=== PATIENT | female | born 1935 | race Caucasian/White ===

== ENCOUNTER 2016-08-26 14:56 | Inpatient (IN) | payer OTHER, MEDICARE ==
[~2016-08-26] VITALS: Ht 154.9 cm; Wt 55.3 kg
[2016-08-26] VITALS (7 sets, daily range): BP systolic 103–151; BP diastolic 66–99; PULSE 66–142; RESP 14–34; TEMP 98.1–98.6; O2SAT 96–98
[~2016-08-26 14:56] MED LIST: AMIO400T2 PO; DAILTAB38 PO; DENO60P SQ; E 101000 PO; HYDR12.56 PO; PACE200T4 PO; PRAV80 PO; RIVA15 PO; VITA100018 PO
[2016-08-26] MEDS ORDERED: DENO60P SQ (15:12)
[2016-08-26] MEDS ORDERED: FLEC1TAB8 PO (15:12)
[2016-08-26] MEDS ORDERED: HYDR12.57 PO (15:12)
[2016-08-26] MEDS ORDERED: PROT40TA PO (15:12)
[2016-08-26] MEDS ORDERED: XARE15TA PO (15:12)
--- NOTE | 2016-08-26 15:21 | PD ---
HPI Chief Complaint: Cardiac Complaint Time Seen by Provider: 15:02 Travel History International Travel<30 days: No Contact w/Intl Traveler<30days: No Traveled to known affect area: No History of Present Illness HPI This 81-year-old female presents with complaint of palpitations. She has a history of atrial fibrillation. She has had 3 ablations in the past. The last one was in 2014. She does get palpitations fairly often. She would estimate that she has episodes about once a month. Her symptoms started last night. She was able to sleep through the night. This morning at 7 AM she took 50 mg tablet of flecainide. This has not affected her palpitations. She has no complaint of chest pain or shortness of breath. She is on hydrochlorothiazide for hypertension. She is on Xarelto [facility] Past Medical History Arthritis: No Atrial Fibrillation: Yes Heart Rhythm Problems: Yes (AFIB WITH TWO PREVIOUS ABLATIONS) Cancer: No Cardiovascular Problems: Yes (AFIB) High Cholesterol: Yes Chest Pain: Yes Cerebrovascular Accident: No Diminished Hearing: No Endocrine: No Gastrointestinal Disorders: Yes GERD: Yes Genitourinary: Yes (BLADDER SPASMS) Hiatal Hernia: Yes Hypertension: Yes Immune Disorder: No Musculoskeletal: Yes Neurologic: Yes Psychiatric: No Reproductive: No Respiratory: No Ulcer: Yes Tetanus Vaccination: Unknown ?: Not Menopausal: Yes : 6 Para: 6 Past Surgical History Abdominal Surgery: No Cardiac Surgery: Yes (CARDIAC ABLATION X3) Gynecologic Surgery: Yes (BARTHOLIN CYST REMOVAL, HYSTERECTOMY ) Hysterectomy: Yes Thoracic Surgery: No Other Surgery: Yes (NASAL) Social History Alcohol Use: Yes (OCC) Tobacco Use: No (SMOKED LESS THAN A YEAR IN THE 1950'S) Substance Use: No Allergies-Medications (Allergen,Severity, Reaction): Coded Allergies: Bactrim (Verified Allergy, Severe, Rash, 08/26/16) Reported Meds & Prescriptions Reported Meds & Active Scripts Active Reported Prolia Inj (Denosumab) 60 Mg/Ml Inj 60 Mg SQ Q180D Hydrochlorothiazide 12.5 Mg Cap 12.5 Mg PO DAILY Protonix (Pantoprazole Sodium) 40 Mg Tab 40 Mg PO DAILY Xarelto (Rivaroxaban) 15 Mg Tab 15 Mg PO DAILY Flecainide (Flecainide Acetate) 50 Mg Tab 50 Mg PO TID Review of Systems General / Constitutional: No: Fever, Chills Eyes: No: Diploplia, Blurred Vision HENT: No: Headaches, Vertigo Cardiovascular: No: Chest Pain or Discomfort, Palpitations Respiratory: No: Cough, Shortness of Breath Gastrointestinal: No: Vomiting, Diarrhea Genitourinary: No: Urgency, Frequency Physical Exam Narrative GENERAL: Well-developed female. Her heart rate is 130 SKIN: Focused skin assessment warm/dry. HEAD: Atraumatic. Normocephalic. EYES: Pupils equal and round. No scleral icterus. No injection or drainage. ENT: No nasal bleeding or discharge. Mucous membranes pink and moist. NECK: Trachea midline. No JVD. CARDIOVASCULAR: Rapid irregular rate and rhythm. No murmur appreciated. RESPIRATORY: No accessory muscle use. Clear to auscultation. Breath sounds equal bilaterally. GASTROINTESTINAL: Abdomen soft, non-tender, nondistended. Hepatic and splenic margins not palpable. MUSCULOSKELETAL: No obvious deformities. No clubbing. No cyanosis. No edema. NEUROLOGICAL: Awake and alert. No obvious cranial nerve deficits. Motor grossly within normal limits. Normal speech. PSYCHIATRIC: Appropriate mood and affect; insight and judgment normal. Data Data Last Documented VS Vital Signs Date Time Temp Pulse Resp B/P Pulse Ox O2 Delivery O2 Flow Rate FiO2 08/26/16 15:10 16 97 Room Air 08/26/16 15:07 98.1 131 151/99 Orders Electrocardiogram (08/26/16 15:27) Complete Blood Count With Diff (08/26/16 15:27) Basic Metabolic Panel (Bmp) (08/26/16 15:27) Troponin I (08/26/16 15:27) Urinalysis - C+S If Indicated (08/26/16 15:27) Magnesium (Mg) (08/26/16 15:27) Diltiazem Inj (Cardizem Inj) (08/26/16 15:30) Diltiazem Inj (Cardizem Inj) (08/26/16 15:30) Labs Laboratory Tests Test 08/26/16 15:10 White Blood Count 7.3 TH/MM3 Red Blood Count 5.07 MIL/MM3 Hemoglobin 15.6 GM/DL Hematocrit 47.3 % Mean Corpuscular Volume 93.3 FL Mean Corpuscular Hemoglobin 30.9 PG Mean Corpuscular Hemoglobin 33.1 % Concent Red Cell Distribution Width 12.3 % Platelet Count 257 TH/MM3 Mean Platelet Volume 8.5 FL Neutrophils (%) (Auto) 47.4 % Lymphocytes (%) (Auto) 41.4 % Monocytes (%) (Auto) 7.3 % Eosinophils (%) (Auto) 1.6 % Basophils (%) (Auto) 2.3 % Neutrophils # (Auto) 3.5 TH/MM3 Lymphocytes # (Auto) 3.0 TH/MM3 Monocytes # (Auto) 0.5 TH/MM3 Eosinophils # (Auto) 0.1 TH/MM3 Basophils # (Auto) 0.2 TH/MM3 CBC Comment DIFF FINAL Differential Comment Sodium Level 139 MEQ/L Potassium Level 3.6 MEQ/L Chloride Level 103 MEQ/L Carbon Dioxide Level 26.8 MEQ/L Anion Gap 9 MEQ/L Blood Urea Nitrogen 14 MG/DL Creatinine 0.79 MG/DL Estimat Glomerular Filtration 70 ML/MIN Rate Random Glucose 95 MG/DL Calcium Level 9.0 MG/DL Magnesium Level 2.2 MG/DL Troponin I 0.02 NG/ML [facility] Medical Decision Making Medical Screen Exam Complete: Yes Emergency Medical Condition: Yes Medical Record Reviewed: Yes Differential Diagnosis Differential includes dysrhythmia, SVT, atrial fibrillation, atrial flutter Narrative Course EKG shows atrial fibrillation at a rate of 133. Patient was given 1 dose of flecainide at 7 AM. I will order Cardizem. Cardizem has been given with persistence of atrial fibrillation. Her troponin is normal. Electrolytes are unremarkable Diagnosis Primary Impression: Atrial fibrillation Qualified Code: I48.0 - Paroxysmal atrial fibrillation Librado Patton MD Aug 26, 2016 15:21
[2016-08-26] MEDS ORDERED: DILTIAZEM HCL 25 MG/5 ML VIAL IV ONE (15:30)
[2016-08-26] MEDS ORDERED: DILTIAZEM INJ 125 MG in SODIUM CHLORIDE 0.9% INJ 100 ML IV SCH (15:30)
[2016-08-26 15:41] LABS: AUTOMATED NEUTROPHIL # 3.5 TH/MM3 (1.8-7.7); BASOPHIL # 0.2 TH/MM3 (0-0.2); BASOPHIL % 2.3 % (0.0-2.0); EOSINOPHIL # 0.1 TH/MM3 (0-0.4); EOSINOPHIL % 1.6 % (0.0-4.0); HEMATOCRIT 47.3 % (35.0-46.0); HEMO FLAGS DIFF FINAL; LYMPH % 41.4 % (9.0-44.0); MEAN CELL VOLUME 93.3 FL (80.0-100.0); MEAN CORPUSCULAR HEMOGLOBIN 30.9 PG (27.0-34.0); MEAN CORPUSCULAR HGB CONC 33.1 % (32.0-36.0); MONO % 7.3 % (0.0-8.0); NEUT % 47.4 % (16.0-70.0); PLATELET COUNT 257 TH/MM3 (150-450); RED BLOOD COUNT 5.07 MIL/MM3 (4.00-5.30); RED CELL DISTRIBUTION WIDTH 12.3 % (11.6-17.2); WHITE BLOOD COUNT 7.3 TH/MM3 (4.0-11.0)
[2016-08-26 15:48] LABS: POTASSIUM 3.6 MEQ/L (3.5-5.1)
[2016-08-26 15:52] LABS: BICARBONATE 26.8 MEQ/L (21.0-32.0); MAGNESIUM 2.2 MG/DL (1.5-2.5)
[2016-08-26 16:55] LABS: BLOOD, URINE NEG (NEG); GLUCOSE,URINE NEG (NEG); NITRITE,URINE NEG (NEG)
[2016-08-26 17:08] LABS: KETONE, URINE 80 OR GREATER mg/dL (NEG)
[2016-08-26 17:09] LABS: URINE COLOR YELLOW (YELLW/STRAW)
[2016-08-26 17:10] LABS: COMMENT (UR) CULT NOT INDICATED; CULTURE IF INDICATED CULT NOT INDICATED; SQUAMOUS EPITHELIAL CELL URINE 0-5 /hpf (0-5)
[2016-08-26] MEDS ORDERED: SODIUM CHLORIDE 0.9% FLUSH 10 ML FLUSH IV FLUSH PRN (17:30)
[2016-08-26] MEDS ORDERED: PILL SPLITTER OTHER PRN (17:45)
--- NOTE | 2016-08-26 17:54 | HHI.HP ---
[facility] Service [facility] Primary Care Physician Jaime Noonan MD Admission Diagnosis RAPID ATRIAL FIBRILLATION Diagnoses: Chief Complaint: Rapid pulse Travel History International Travel<30 Days: No Contact w/Intl Traveler <30 Da: No Traveled to Known Affected Are: No History of Present Illness Patient's 81-year-old female with a known history of atrial fibrillation. Apparently has been controlled with her home regimen up until recently. She normally takes Xarelto and her twister doffer just changed her to flecainide. Patient says her heart rate started running quickly overnight and it did not resolve after she took some of the flecainide to she came to the hospital this morning. She has had 3 ablations in the last 3 years since her original diagnosis. She notes no shortness of breath and no chest pain and in fact she is quite comfortable sitting in her chair. Her heart rate is 136 at rest and she does feel the palpitations. Patient been admitted to the hospital for further evaluation. She has improvement of symptoms after a diltiazem drip was started and her heart rate went down into the 90s Review of Systems Constitutional: DENIES: Diaphoretic episodes, Fatigue, Fever, Weight gain, Weight loss, Chills, Dizziness, Change in appetite, Night Sweats Endocrine: DENIES: Abnorml menstrual pattern, Heat/cold intolerance, Polydipsia , Polyuria, Polyphagia Eyes: DENIES: Blurred vision, Diplopia, Eye inflammation, Eye pain, Vision loss , Photosensitivity, Double Vision Ears, nose, mouth, throat: DENIES: Tinnitus, Hearing loss, Vertigo, Nasal discharge, Oral lesions, Throat pain, Hoarseness, Ear Pain, Running Nose, Epistaxis, Sinus Pain, Toothache, Odynophagia Respiratory: DENIES: Apneas, Cough, Snoring, Wheezing, Hemoptysis, Sputum production, Shortness of breath Cardiovascular: DENIES: Chest pain, Palpitations, Syncope, Dyspnea on Exertion , PND, Lower Extremity Edema, Orthopnea, Claudication Gastrointestinal: DENIES: Abdominal pain, Black stools, Bloody stools, Constipation, Diarrhea, Nausea, Vomiting, Difficulty Swallowing, Anorexia Genitourinary: DENIES: Abnormal vaginal bleeding, Dysmenorrhea, Dyspareunia, Sexual dysfunction, Urinary frequency, Urinary incontinence, Urgency, Hematuria , Dysuria, Nocturia, Vaginal discharge Musculoskeletal: DENIES: Joint pain, Muscle aches, Stiffness, Joint Swelling, Back pain, Neck pain Integumentary: DENIES: Abnormal pigmentation, Pruritus, Rash, Nail changes, Breast masses, Breast skin changes, Nipple discharge Hematologic/lymphatic: DENIES: Bruising, Lymphadenopathy Immunologic/allergic: DENIES: Eczema, Urticaria Neurologic: DENIES: Abnormal gait, Headache, Localized weakness, Paresthesias, Seizures, Speech Problems, Tremor, Poor Balance Psychiatric: DENIES: Anxiety, Confusion, Mood changes, Depression, Hallucinations, Agitation, Suicidal Ideation, Homicidal Ideation, Delusions Past Family Social History Past Medical History Atrial fibrillation Hypertension GERD Past Surgical History Hysterectomy Cardiac ablation 3 Reported Medications Reviewed in the medical record, recently started flecainide Allergies: Coded Allergies: Bactrim (Verified Allergy, Severe, Rash, 08/26/16) Active Ordered Medications Reviewed in the medical record Family History No family history of atrial fibrillation Social History Recently for a year after 62 years of marriage No tobacco or alcohol dependency Physical Exam Vital Signs Vital Signs Date Time Temp Pulse Resp B/P Pulse Ox O2 Delivery O2 Flow Rate FiO2 08/26/16 16:47 136 16 107/84 96 Room Air 08/26/16 15:47 92 16 103/66 98 Room Air 08/26/16 15:10 16 97 Room Air 08/26/16 15:07 98.1 131 16 151/99 98 Physical Exam GENERAL: This is a well-nourished, well-developed patient, in no apparent distress. SKIN: No rashes, ecchymoses or lesions. Cool and dry. HEAD: Atraumatic. Normocephalic. No temporal or scalp tenderness. EYES: Pupils equal round and reactive. Extraocular motions intact. No scleral icterus. No injection or drainage. ENT: Nose without bleeding, purulent drainage or septal hematoma. Throat without erythema, tonsillar hypertrophy or exudate. Uvula midline. Airway patent. NECK: Trachea midline. No JVD or lymphadenopathy. Supple, nontender, no meningeal signs. CARDIOVASCULAR: Atrial fibrillation with a rate of 136 and without murmurs, gallops, or rubs. RESPIRATORY: Clear to auscultation. Breath sounds equal bilaterally. No wheezes , rales, or rhonchi. GASTROINTESTINAL: Abdomen soft, non-tender, nondistended. No hepato-splenomegaly , or palpable masses. No guarding. MUSCULOSKELETAL: Extremities without clubbing, cyanosis, or edema. No joint tenderness, effusion, or edema noted. No calf tenderness. Negative Homans sign bilaterally. NEUROLOGICAL: Awake and alert. Cranial nerves II through XII intact. Motor and sensory grossly within normal limits. Five out of 5 muscle strength in all muscle groups. Normal speech. Laboratory Laboratory Tests Test 08/26/16 08/26/16 15:10 16:40 White Blood Count 7.3 Red Blood Count 5.07 Hemoglobin 15.6 Hematocrit 47.3 Mean Corpuscular Volume 93.3 Mean Corpuscular Hemoglobin 30.9 Mean Corpuscular Hemoglobin 33.1 Concent Red Cell Distribution Width 12.3 Platelet Count 257 Mean Platelet Volume 8.5 Neutrophils (%) (Auto) 47.4 Lymphocytes (%) (Auto) 41.4 Monocytes (%) (Auto) 7.3 Eosinophils (%) (Auto) 1.6 Basophils (%) (Auto) 2.3 Neutrophils # (Auto) 3.5 Lymphocytes # (Auto) 3.0 Monocytes # (Auto) 0.5 Eosinophils # (Auto) 0.1 Basophils # (Auto) 0.2 CBC Comment DIFF FINAL Differential Comment Sodium Level 139 Potassium Level 3.6 Chloride Level 103 Carbon Dioxide Level 26.8 Anion Gap 9 Blood Urea Nitrogen 14 Creatinine 0.79 Estimat Glomerular Filtration 70 Rate Random Glucose 95 Calcium Level 9.0 Magnesium Level 2.2 Troponin I 0.02 Urine Color YELLOW Urine Turbidity CLEAR Urine pH 7.0 Urine Specific Comfrey 1.005 Urine Protein NEG Urine Glucose (UA) NEG Urine Ketones 80 OR GREATER Urine Occult Blood NEG Urine Nitrite NEG Urine Bilirubin NEG Urine Leukocyte Esterase NEG Urine Squamous Epithelial 0-5 Cells Microscopic Urinalysis Comment CULT NOT INDICATED Result Diagram: 08/26/16 1510 08/26/16 1510 Assessment and Plan Problem List: (1) Atrial fibrillation ICD Code: I48.91 Status: Chronic Plan: With rapid ventricular response Continue to adjust Cardizem, echo available from 06/2014 reviewed Follow electrolytes Follow-up with cardiology Assessment and Plan Plan of care to be determined by Hospital course Code Status Full code Discussed Condition With DESTINEY Grijalva, patient Physician Certification 2 Midnight Certification Type: Admission for Inpatient Services Order for Inpatient Services The services are ordered in accordance with Medicare regulations or non- Medicare payer requirements, as applicable. In the case of services not specified as inpatient-only, they are appropriately provided as inpatient services in accordance with the 2-midnight benchmark. Estimated LOS (days): 3 3 days is the estimated time the patient will need to remain in the hospital, assuming treatment plan goals are met and no additional complications. Post-Hospital Plan: Home Problem Qualifiers (1) Atrial fibrillation: Qualified Code: I48.0 - Paroxysmal atrial fibrillation Kristina Corona MD Aug 26, 2016 17:53
[2016-08-26] MEDS: FLECAINIDE ACETATE 100 MG TAB PO SCH (18:00)
[2016-08-26] MEDS: DILTIAZEM HCL 60 MG TAB PO SCH ×2 (19:17→21:00)
[2016-08-26] MEDS: SODIUM CHLORIDE 0.9% FLUSH 10 ML FLUSH IV FLUSH SCH (21:00)
[2016-08-27] VITALS (14 sets, daily range): BP systolic 86–125; BP diastolic 55–73; PULSE 46–140; RESP 15–36; TEMP 98–98.5; O2SAT 98–99
[2016-08-27 05:04] LABS: POTASSIUM 3.7 MEQ/L (3.5-5.1)
[2016-08-27 05:08] LABS: BICARBONATE 25.2 MEQ/L (21.0-32.0); MAGNESIUM 2.2 MG/DL (1.5-2.5)
[2016-08-27 08:25] LABS: AUTOMATED NEUTROPHIL # 2.9 TH/MM3 (1.8-7.7); BASOPHIL # 0.1 TH/MM3 (0-0.2); BASOPHIL % 2.1 % (0.0-2.0); EOSINOPHIL # 0.1 TH/MM3 (0-0.4); EOSINOPHIL % 2.4 % (0.0-4.0); HEMATOCRIT 45.7 % (35.0-46.0); HEMO FLAGS DIFF FINAL; LYMPH % 36.7 % (9.0-44.0); MEAN CELL VOLUME 92.6 FL (80.0-100.0); MEAN CORPUSCULAR HEMOGLOBIN 30.7 PG (27.0-34.0); MEAN CORPUSCULAR HGB CONC 33.2 % (32.0-36.0); MONO % 8.1 % (0.0-8.0); NEUT % 50.7 % (16.0-70.0); PLATELET COUNT 237 TH/MM3 (150-450); RED BLOOD COUNT 4.93 MIL/MM3 (4.00-5.30); RED CELL DISTRIBUTION WIDTH 12.4 % (11.6-17.2); WHITE BLOOD COUNT 5.5 TH/MM3 (4.0-11.0)
[2016-08-27] MEDS: DILTIAZEM HCL 60 MG TAB PO SCH ×2 (08:45→13:00)
[2016-08-27] MEDS: FLECAINIDE ACETATE 100 MG TAB PO SCH (08:45)
[2016-08-27] MEDS: PANTOPRAZOLE SOD 40 MG DELAYED RELEASE TAB PO SCH (08:45)
[2016-08-27] MEDS: RIVAROXABAN 15 MG TAB PO SCH (08:45)
[2016-08-27] MEDS ORDERED: METOPROLOL TARTRATE 5 MG/5 ML VIAL IV PUSH ONE (08:45)
[2016-08-27] MEDS: SODIUM CHLORIDE 0.9% FLUSH 10 ML FLUSH IV FLUSH SCH (08:48)
[2016-08-27] MEDS ORDERED: HYDROCHLOROTHIAZIDE 12.5 MG CAP PO SCH (09:00)
--- NOTE | 2016-08-27 09:40 | HHI.PR ---
Subjective Remarks Patient seen and evaluated today in follow-up for atrial fibrillation. Heart rate still uncontrolled. Her some persistent arrhythmia overnight with some wide complexes but not true ventricular tachycardia. Patient remains in A. fib with a rate of 130s and she is asymptomatic. She is on diltiazem drip and oral diltiazem has been started. Cardiology did see the patient this morning and added a beta robby. Patient's blood pressure has remained stable although somewhat low. Care plan discussed with patient and VINYL CUTTER Objective Vitals Vital Signs Date Time Temp Pulse Resp B/P Pulse Ox O2 Delivery O2 Flow Rate FiO2 08/27/16 06:00 100 08/27/16 04:00 98 08/27/16 04:00 98.2 98 19 100/73 98 08/27/16 02:00 64 08/27/16 00:00 98.0 64 16 94/55 08/27/16 00:00 64 08/26/16 22:00 66 08/26/16 20:00 98.6 142 34 107/69 08/26/16 20:00 142 08/26/16 18:00 136 14 116/81 08/26/16 18:00 136 08/26/16 17:54 98.4 138 136/82 08/26/16 16:47 136 16 107/84 96 Room Air 08/26/16 15:47 92 16 103/66 98 Room Air 08/26/16 15:10 16 97 Room Air 08/26/16 15:07 98.1 131 16 151/99 98 I/O 08/26/16 08/26/16 08/26/16 08/27/16 08/27/16 08/27/16 07:00 15:00 23:00 07:00 15:00 23:00 Intake Total 500 ml 40 ml Balance 500 ml 40 ml Intake Oral 500 ml IV Total 40 ml # Voids 2 2 # Bowel Movements 0 0 Result Diagram: 08/27/16 0815 08/27/16 0435 Objective Remarks GENERAL: This is a well-nourished, well-developed patient, in no apparent distress. CARDIOVASCULAR: Atrial fibrillation with rapid ventricular response without murmurs, gallops, or rubs. RESPIRATORY: Clear to auscultation. Breath sounds equal bilaterally. No wheezes , rales, or rhonchi. GASTROINTESTINAL: Abdomen soft, non-tender, nondistended. Normal active bowel sounds MUSCULOSKELETAL: Extremities without clubbing, cyanosis, or edema. NEURO: Alert & Oriented x4 to person, place, time, situation. Moves all ext x4 A/P Problem List: (1) Atrial fibrillation ICD Code: I48.91 Status: Chronic Plan: With rapid ventricular response uncontrolled rates Lopressor added Continue to adjust Cardizem, continue flecainide Continue Xarelto echo available from 06/2014 reviewed Follow electrolytes Cardiology consult appreciated (2) HTN (hypertension) ICD Code: I10 Status: Acute Plan: We'll hold hydrochlorothiazide due to hypotension and continue with management for atrial fibrillation and follow blood pressure accordingly Problem Qualifiers (1) Atrial fibrillation: Qualified Code: I48.0 - Paroxysmal atrial fibrillation Kristina Corona MD Aug 27, 2016 09:40
[2016-08-27] MEDS ORDERED: PILL SPLITTER OTHER PRN (11:30)
--- NOTE | 2016-08-27 12:26 | MB ---
cc: CHASE SUTTON DO DATE OF CONSULTATION August 27, 2016 REASON FOR CONSULTATION Atrial fibrillation with rapid ventricular response. HISTORY OF PRESENT ILLNESS Fatemeh Kwan is a pleasant 81-year-old female who presented to [facility] Emergency Room on August 26, 2016, due to palpitations. She sees my partner, Dr. Tyler, in the office and apparently she has had these episodes for an hour to 2 hours over the past few months and so she was started on flecainide and told to use it as needed when she gets these. When she starts to have the arrhythmia, she can feel it in her throat but otherwise denies any symptoms including shortness of breath or chest pain. The night before coming into the hospital she started getting the feeling and went to bed. She woke up in the morning and because it was still there she took a dose of flecainide. She waited a few hours and, when of this time for her second dose of flecainide, she felt that it did not work so she came into the hospital. She was found to be in atrial flutter with rapid ventricular response. She has since been admitted to the ICU and started on a Cardizem drip. Overnight she did convert and heart rates were in the 60s but has since increased her heart rate back up to the 130s. She is currently sitting comfortably and asking when she can go home. PAST MEDICAL HISTORY 1. Atrial fibrillation/atrial flutter. 2. Hypertension. 3. Gastroesophageal reflux disease. PAST SURGICAL HISTORY 1. Arrhythmia ablation including atrial flutter and atrial fibrillation three times in the past. 2. Hysterectomy. ALLERGIES BACTRIM. MEDICATIONS 1. Hydrochlorothiazide 12.5 mg daily. 2. Protonix 40 mg daily. 3. Prolia 60 mg. 4. Xarelto 15 mg daily. 5. Flecainide 50 mg t.i.d. as needed for palpitations/arrhythmia. FAMILY HISTORY Denies premature coronary artery disease or sudden cardiac within the family. SOCIAL HISTORY Recently after 62 years of marriage. Denies tobacco, alcohol or drugs. REVIEW OF SYSTEMS 14-systems were reviewed including osteopathic; pertinent positives and negatives above, otherwise negative. PHYSICAL EXAMINATION VITAL SIGNS: Temperature 98.2, heart rate 135, blood pressure 100/73, respirations 19, pulse ox 98% on room air. IN GENERAL: The patient appears well, in no acute distress, alert, awake and oriented x 3. Extraocular muscles intact. Mucous membranes moist. NECK: Supple. No JVD at 45 degrees. No carotid bruits heard bilaterally. Carotid upstroke is brisk in nature. HEART: Tachycardiac but regular with no murmurs noted, although difficult to determine with current tachycardiac rate. LUNGS: Clear to auscultation bilaterally. No wheezes, rales or rhonchi. ABDOMEN: Soft, non-tender, non-distended. No organomegaly noted. EXTREMITIES: No clubbing, cyanosis or edema. Femoral and distal pulses are intact bilaterally. NEUROLOGICALLY: No focal deficits. SKIN: Warm, dry and intact. OSTEOPATHIC EXAM: No kyphoscoliosis, lordosis or paraspinal tender points. LABORATORY FINDINGS Hemoglobin 15.1, hematocrit 45.7, platelets 237. Potassium 3.7, BUN 11, creatinine 19, magnesium 2.2. Troponin 0.05. ELECTROCARDIOGRAM (August 27, 2016 at 04:41) SVT at a rate of 135 beats per minute which appears to be atrial flutter with rapid ventricular response, right bundle branch block. IMPRESSIONS 1. Atrial flutter with rapid ventricular response with a history of multiple ablations for atrial flutter and atrial fibrillation. 2. History of hypertension. 3. History of gastroesophageal reflux disease. RECOMMENDATIONS 1. Mrs. Kwan currently is on a Cardizem drip at 15 mg per hour with an elevated rate. As his atrial flutter, this may be more difficult to manage from a medication standpoint. I will attempt to give her IV Lopressor on top of her current Cardizem drip to see if this will convert her back into normal sinus rhythm. 2. If unable to convert or control her rate with a combination of beta blockers and calcium channel blockers, then we may need to start an amiodarone drip after an amiodarone bolus to try to help control rate and/or rhythm. 3. We will continue her Xarelto for anticoagulation. Of note, she is currently on 15 mg daily due to a creatinine clearance of 50. 4. Further recommendations will be made based on the hospital course. Thank you for allowing me to see Fatemeh Kwan. If there are any questions, please do not hesitate to call. Chase MAYBERRY/PRISCILLA /8:47 AM /12:18 PM
--- NOTE | 2016-08-27 13:12 | EKG ---
Date Performed: 08/27/2016 Time Performed: 04:41:43 PTAGE: 81 years EKG: ECTOPIC ATRIAL TACHYCARDIA INDETERMINATE AXIS RIGHT BUNDLE BRANCH BLOCK ABNORMAL ECG PREVIOUS TRACING : 08/26/2016 15.04 Compared to prior tracing no significant change DOCTOR: Lalo De La Cruz Interpretating Date/Time 08/27/2016 13:09:47
--- NOTE | 2016-08-27 13:26 | EKG ---
Date Performed: 08/26/2016 Time Performed: 15:04:52 PTAGE: 81 years EKG: ATRIAL FIBRILLATION WITH RAPID VENTRICULAR RESPONSE INDETERMINATE AXIS RIGHT BUNDLE BRANCH BLOCK ABNORMAL ECG INTERPRETATION BASED ON A DEFAULT AGE OF 40 YEARS NO PREVIOUS TRACING DOCTOR: Lalo De La Cruz Interpretating Date/Time 08/27/2016 13:20:03
[2016-08-27] MEDS: DILTIAZEM HCL 30 MG TAB PO SCH (18:46)
[2016-08-27] MEDS ORDERED: METOPROLOL TARTRATE 25 MG TAB PO SCH (21:00)
[2016-08-28] VITALS (12 sets, daily range): BP systolic 94–124; BP diastolic 44–78; PULSE 23–62; RESP 16–23; TEMP 97–98.7; O2SAT 97–98
[2016-08-28] MEDS: SODIUM CHLORIDE 0.9% FLUSH 10 ML FLUSH IV FLUSH SCH ×3 (00:37→20:55)
[2016-08-28] MEDS ORDERED: DILTIAZEM HCL 25 MG/5 ML VIAL IV ONE (01:00)
[2016-08-28] MEDS ORDERED: DILTIAZEM INJ 125 MG in SODIUM CHLORIDE 0.9% INJ 100 ML IV SCH (01:00)
[2016-08-28] MEDS ORDERED: DILTIAZEM HCL 30 MG TAB PO ONE (01:30)
[2016-08-28] MEDS: DILTIAZEM HCL 30 MG TAB PO SCH ×2 (06:37)
--- NOTE | 2016-08-28 08:26 | PD.CARD.PN ---
Subjective Subjective Remarks Doing well today, no complaints, up and moving without problem Overnight did have some bradycardia/hypotension most likely medication induced, was asymptomatic during it Objective Medications Current Medications Medications (Trade) Dose Ordered Sig/Moshe Route Start Time Stop Time Status Last Admin (NS Flush) 2 ml UNSCH PRN IV FLUSH 08/26/16 17:30 (NS Flush) 2 ml BID IV FLUSH 08/26/16 21:00 08/28/16 00:37 (Protonix) 40 mg DAILY PO 08/27/16 09:00 08/27/16 08:45 (Xarelto) 15 mg DAILY PO 08/27/16 09:00 08/27/16 08:45 (Pill Splitter) 1 ea UNSCH PRN OTHER 08/26/16 17:45 Diltiazem HCl 30 mg 30 mg Q6HR PO 08/27/16 18:15 08/28/16 06:37 (Cardizem Inj/NS Inj) 125 ml @ 0 mls/hr TITRATE IV 08/28/16 01:00 Vital Signs / I&O Vital Signs Date Time Temp Pulse Resp B/P Pulse Ox O2 Delivery O2 Flow Rate FiO2 08/28/16 06:00 62 08/28/16 04:14 52 08/28/16 04:03 98.0 52 17 116/65 97 08/28/16 02:00 50 08/28/16 00:34 54 16 94/44 08/28/16 00:00 52 08/27/16 23:42 98.0 52 17 107/58 08/27/16 22:00 52 08/27/16 20:00 98.2 58 20 125/63 98 08/27/16 20:00 59 08/27/16 18:00 53 08/27/16 16:00 55 08/27/16 16:00 98.5 58 36 95/61 98 08/27/16 14:00 48 08/27/16 12:00 98.3 46 17 86/55 99 08/27/16 12:00 46 08/27/16 10:30 52 08/27/16 10:00 136 I/O 08/27/16 08/27/16 08/27/16 08/28/16 08/28/16 08/28/16 07:00 15:00 23:00 07:00 15:00 23:00 Intake Total 40 ml 355 ml 400 ml 100 ml Output Total 325 ml Balance 40 ml 30 ml 400 ml 100 ml Intake Oral 325 ml 400 ml 100 ml IV Total 40 ml 30 ml 0 ml 0 ml Output Urine Total 325 ml # Voids 2 3 2 1 # Bowel Movements 0 1 0 0 Physical Exam GENERAL: NAD, AAOx3 SKIN: Warm and dry. HEAD: Atraumatic. Normocephalic. EYES: Pupils equal and round. No scleral icterus. No injection or drainage. ENT: No nasal bleeding or discharge. Mucous membranes pink and moist. NECK: Trachea midline. No JVD. CARDIOVASCULAR: Regular rhythm, mildly bradycardic RESPIRATORY: No accessory muscle use. Clear to auscultation. Breath sounds equal bilaterally. GASTROINTESTINAL: Abdomen soft, non-tender, nondistended. Hepatic and splenic margins not palpable. MUSCULOSKELETAL: Extremities without clubbing, cyanosis, or edema. No obvious deformities. NEUROLOGICAL: Awake and alert. No obvious cranial nerve deficits. Motor grossly within normal limits. Five out of 5 muscle strength in the arms and legs. Normal speech. PSYCHIATRIC: Appropriate mood and affect; insight and judgment normal. Assessment and Plan Problem List: (1) Atrial fibrillation (2) Atrial flutter (3) Supraventricular tachycardia (4) Hyperlipidemia (5) HTN (hypertension) Assessment and Plan 1) Mostly atrial flutter, may eventually need repeat ablation 2) Heart rates currently controlled, blood pressure better As much as she wants to go home, I would like to make sure that she has stabilized on the medication especially as she lives alone Will stop Cardizem QID, and change to Cardizem SR 90mg daily Will plan to give dose today, and if stable tomorrow morning can be discharged 3) Follow up with Dr. Dean in 2-3 weeks 4) Con't on Xarelto for anti-coagulation Problem Qualifiers (1) Atrial fibrillation: Qualified Code: I48.0 - Paroxysmal atrial fibrillation Chase Serrano DO Aug 28, 2016 08:26
[2016-08-28] MEDS: PANTOPRAZOLE SOD 40 MG DELAYED RELEASE TAB PO SCH (11:22)
[2016-08-28] MEDS: DILTIAZEM-CD 120 MG CAP ER PO SCH (11:23)
[2016-08-28] MEDS: RIVAROXABAN 15 MG TAB PO SCH (11:23)
[2016-08-28] MEDS ORDERED: CARD120C4 PO (13:58)
--- NOTE | 2016-08-28 14:00 | HHI.PR ---
Subjective Remarks Patient seen today for follow up for Afib, now with bradycardia. assymptomatic No new complaints cardiology has adjusted meds Objective Vitals Vital Signs Date Time Temp Pulse Resp B/P Pulse Ox O2 Delivery O2 Flow Rate FiO2 08/28/16 12:00 48 08/28/16 12:00 98.7 48 23 111/58 98 08/28/16 10:00 56 08/28/16 08:00 98.4 57 23 104/78 98 08/28/16 08:00 57 08/28/16 06:00 62 08/28/16 04:14 52 08/28/16 04:03 98.0 52 17 116/65 97 08/28/16 02:00 50 08/28/16 00:34 54 16 94/44 08/28/16 00:00 52 08/27/16 23:42 98.0 52 17 107/58 08/27/16 22:00 52 08/27/16 20:00 98.2 58 20 125/63 98 08/27/16 20:00 59 08/27/16 18:00 53 08/27/16 16:00 55 08/27/16 16:00 98.5 58 36 95/61 98 08/27/16 14:00 48 I/O 08/27/16 08/27/16 08/27/16 08/28/16 08/28/16 08/28/16 07:00 15:00 23:00 07:00 15:00 23:00 Intake Total 40 ml 355 ml 400 ml 100 ml Output Total 325 ml Balance 40 ml 30 ml 400 ml 100 ml Intake Oral 325 ml 400 ml 100 ml IV Total 40 ml 30 ml 0 ml 0 ml Output Urine Total 325 ml # Voids 2 3 2 1 # Bowel Movements 0 1 0 0 Result Diagram: 08/27/16 0815 08/27/16 0435 Objective Remarks GENERAL: This is a well-nourished, well-developed patient, in no apparent distress. CARDIOVASCULAR: Atrial fibrillation with bradycardia without murmurs, gallops, or rubs. RESPIRATORY: Clear to auscultation. Breath sounds equal bilaterally. No wheezes , rales, or rhonchi. GASTROINTESTINAL: Abdomen soft, non-tender, nondistended. Normal active bowel sounds MUSCULOSKELETAL: Extremities without clubbing, cyanosis, or edema. NEURO: Alert & Oriented x4 to person, place, time, situation. Moves all ext x4 A/P Problem List: (1) Atrial fibrillation ICD Code: I48.91 Status: Chronic Plan: With initially rapid ventricular response and now with bradycardia (all asymptomatic) Lopressor added Continue to adjust Cardizem as per cardiology Continue Xarelto echo available from 06/2014 reviewed Follow electrolytes Cardiology consult appreciated (2) HTN (hypertension) ICD Code: I10 Status: Acute Plan: We'll dc hydrochlorothiazide due to hypotension and continue with management for atrial fibrillation and follow blood pressure accordingly Assessment and Plan likely dc in am if rate controlled Problem Qualifiers (1) Atrial fibrillation: Qualified Code: I48.0 - Paroxysmal atrial fibrillation Kristina Corona MD Aug 28, 2016 14:00
[2016-08-29] VITALS: BP 115/67; PULSE 52; RESP 16; TEMP 96.8; O2SAT 97
[2016-08-29 08:00] VITALS: BP 118/61; PULSE 54; RESP 20; TEMP 96.8; O2SAT 97
--- NOTE | 2016-08-29 08:43 | HHI.DS ---
Discharge Summary Admission Date Aug 26, 2016 at 16:37 Discharge Date: Aug 29, 2016 Admitting Diagnosis RAPID ATRIAL FIBRILLATION (1) Atrial flutter ICD Code: I48.92 Diagnosis: Principal (2) Atrial fibrillation ICD Code: I48.91 Diagnosis: Principal (3) HTN (hypertension) ICD Code: I10 Diagnosis: Secondary Procedures none Brief History - From Admission Patient's 81-year-old female with a known history of atrial fibrillation. Apparently has been controlled with her home regimen up until recently. She normally takes Xarelto and her private duty lpn just changed her to flecainide. Patient says her heart rate started running quickly overnight and it did not resolve after she took some of the flecainide to she came to the hospital this morning. She has had 3 ablations in the last 3 years since her original diagnosis. She notes no shortness of breath and no chest pain and in fact she is quite comfortable sitting in her chair. Her heart rate is 136 at rest and she does feel the palpitations. Patient been admitted to the hospital for further evaluation. She has improvement of symptoms after a diltiazem drip was started and her heart rate went down into the 90s CBC/BMP: 08/27/16 0815 08/27/16 0435 Significant Findings Laboratory Tests Test 08/26/16 08/26/16 08/27/16 08/27/16 15:10 16:40 04:35 08:15 Hemoglobin 15.6 GM/DL (11.6-15.3) Hematocrit 47.3 % (35.0-46.0) Basophils (%) (Auto) 2.3 % (0.0-2.0) 2.1 % (0.0-2.0) Estimat Glomerular Filtration 70 ML/MIN (>89) 73 ML/MIN (>89) Rate Urine Ketones 80 OR GREATER mg/dL (NEG) Chloride Level 109 MEQ/L (98-107) Blood Urea Nitrogen 19 MG/DL (7-18) B-Type Natriuretic Peptide 413 PG/ML (0-100) Monocytes (%) (Auto) 8.1 % (0.0-8.0) PE at Discharge GENERAL: This is a well-nourished, well-developed patient, in no apparent distress. CARDIOVASCULAR: Atrial fibrillation, without murmurs, gallops, or rubs. RESPIRATORY: Clear to auscultation. Breath sounds equal bilaterally. No wheezes , rales, or rhonchi. GASTROINTESTINAL: Abdomen soft, non-tender, nondistended. Normal active bowel sounds MUSCULOSKELETAL: Extremities without clubbing, cyanosis, or edema. NEURO: Alert & Oriented x4 to person, place, time, situation. Moves all ext x4 Pt update on day of discharge The patient is in the chair, she appears in not acute distress. Says she feels much better, she doesn't have any chest pain, lightheadedness, shortness of breath. She was walking to the bathroom without any problems. No fever or chills. No nausea, vomiting, diarrhea or constipation. Eating well. She is comfortable to go home today Hospital Course (1) Atrial fibrillation ICD Code: I48.91 Status: Chronic Plan: With initially rapid ventricular response and now with bradycardia (all asymptomatic) Received Lopressor, discontinued Continue Cardizem po 120 mg po daily as per cardiology Continue Xarelto echo available from 06/2014 reviewed Follow electrolytes Cardiology consult appreciated (2) HTN (hypertension) ICD Code: I10 Status: Acute Plan: We'll dc hydrochlorothiazide due to hypotension and continue with management for atrial fibrillation and follow blood pressure accordingly Patient improved, she was discharged home in stable condition. To follow-up with PCP and cardiology as outpatient. Pt Condition on Discharge: Stable Discharge Disposition: Discharge Home Discharge Time: > 30 minutes Discharge Instructions DIET: Follow Instructions for: Heart Healthy Diet Activities you can perform: Regular-No Restrictions Follow up Referrals: Cardiology - 1 Week with Chase Serrano DO PCP Follow-up - 2-3 Days New Medications: Diltiazem CD 24 HR (Cardizem CD 24 HR) 120 Mg Caper 120 MG PO DAILY afib #31 CAP Continued Medications: Denosumab Inj (Prolia Inj) 60 Mg/Ml Inj 60 MG SQ Q180D Ref 0 VIAL Pantoprazole (Protonix) 40 Mg Tab 40 MG PO DAILY Reflux #30 Ref 0 TAB Rivaroxaban (Xarelto) 15 Mg Tab 15 MG PO DAILY Blood Clot Prevention Ref 0 TAB Discontinued Medications: Flecainide (Flecainide) 50 Mg Tab 50 MG PO TID Regulate Heart Beat #60 Ref 0 TAB Hydrochlorothiazide (Hydrochlorothiazide) 12.5 Mg Cap 12.5 MG PO DAILY #30 Ref 0 CAP Lidia Herrera MD Aug 29, 2016 08:43
[2016-08-29] MEDS: SODIUM CHLORIDE 0.9% FLUSH 10 ML FLUSH IV FLUSH SCH (09:00)
[2016-08-29] MEDS: DILTIAZEM-CD 120 MG CAP ER PO SCH (09:13)
[2016-08-29] MEDS: PANTOPRAZOLE SOD 40 MG DELAYED RELEASE TAB PO SCH (09:13)
[2016-08-29] MEDS: RIVAROXABAN 15 MG TAB PO SCH (09:13)
== END 2016-08-29 09:50 | disposition home or self-care (01) | DRG 310 ==
LOC: PHED 14:56 → PHEDA 16:37 → PHICU 17:34 → PH3A 08-28 17:10
PROVIDERS: ADMIT Hospitalist; ATTEND Hospitalist
DX: I48.0 Paroxysmal atrial fibrillation (principal); I48.92 Unspecified atrial flutter; I45.10 Unspecified right bundle-branch block; I10 Essential (primary) hypertension; K21.9 Gastro-esophageal reflux disease without esophagitis; Z87.891 Personal history of nicotine dependence; R00.1 Bradycardia, unspecified; I95.2 Hypotension due to drugs; T50.905A Adverse effect of unspecified drugs, medicaments and biological substances, initial encounter; Y92.239 Unspecified place in hospital as the place of occurrence of the external cause
CPT/HCPCS: 80048; 81001; 83735; 83880; 84484; 85025; 93005; 96365; 96375

== ENCOUNTER 2016-11-17 12:10 | Emergency (ER) | payer MEDICARE, OTHER ==
[~2016-11-17] VITALS: Ht 154.9 cm; Wt 55.0 kg
[2016-11-17] VITALS (7 sets, daily range): BP systolic 92–148; BP diastolic 64–94; PULSE 94–124; RESP 18–20; TEMP 97.9; O2SAT 93–98
[~2016-11-17 12:10] MED LIST changes: -AMIO400T2 PO; +CARD120C4 PO; -DAILTAB38 PO; -E 101000 PO; -HYDR12.56 PO; -PACE200T4 PO; -PRAV80 PO; +PROT40TA PO; -RIVA15 PO; -VITA100018 PO; +XARE15TA PO
[2016-11-17] MEDS ORDERED: SIMV80TA PO (12:21)
[2016-11-17] MEDS ORDERED: DILTIAZEM HCL 25 MG/5 ML VIAL IV ONE ×3 (12:30→14:30)
--- NOTE | 2016-11-17 12:33 | PD ---
HPI Chief Complaint: Cardiac Complaint Time Seen by Provider: 12:25 Travel History International Travel<30 days: No Contact w/Intl Traveler<30days: No Traveled to known affect area: No History of Present Illness HPI Patient presents with complaints of palpitations. History of paroxysmal atrial fibrillation. States that she's had 2 ablations in the past. Reports rapid heart rate several times per week but usually resolves after an hour to. This episode is been more persistent. Compliant with Xarelto and Cardizem. Followed by cardiology. Denies any chest pain shortness of breath urinary or bowel symptoms. Denies any nausea vomiting diarrhea or fever. Avoiding caffeine. PFSH Past Medical History Arthritis: No Atrial Fibrillation: Yes Heart Rhythm Problems: Yes (AFIB WITH TWO PREVIOUS ABLATIONS) Cancer: No Cardiovascular Problems: Yes High Cholesterol: Yes Chest Pain: Yes Cerebrovascular Accident: No Diminished Hearing: No Endocrine: No Gastrointestinal Disorders: Yes GERD: Yes Genitourinary: Yes (BLADDER SPASMS) Hiatal Hernia: Yes Hypertension: Yes Immune Disorder: No Musculoskeletal: Yes Neurologic: Yes Psychiatric: No Reproductive: No Respiratory: No Ulcer: Yes Influenza Vaccination: No ?: Not Menopausal: Yes : 6 Para: 6 Past Surgical History Abdominal Surgery: No Cardiac Surgery: Yes (CARDIAC ABLATION X3) Gynecologic Surgery: Yes (BARTHOLIN CYST REMOVAL, HYSTERECTOMY ) Hysterectomy: Yes Thoracic Surgery: No Other Surgery: Yes (NASAL) Social History Alcohol Use: Yes (OCC) Tobacco Use: No (SMOKED LESS THAN A YEAR IN THE 1950'S) Substance Use: No Allergies-Medications (Allergen,Severity, Reaction): Coded Allergies: sulfamethoxazole (Unverified Allergy, Severe, Rash, 11/17/16) trimethoprim (Unverified Allergy, Severe, Rash, 11/17/16) Reported Meds & Prescriptions Reported Meds & Active Scripts Active Cardizem CD 24 HR (Diltiazem CD 24 HR) 120 Mg Caper 120 Mg PO DAILY Reported Simvastatin 80 Mg Tab 80 Mg PO HS Prolia Inj (Denosumab) 60 Mg/Ml Inj 60 Mg SQ Q180D Protonix (Pantoprazole Sodium) 40 Mg Tab 40 Mg PO DAILY Xarelto (Rivaroxaban) 15 Mg Tab 15 Mg PO DAILY Review of Systems General / Constitutional: No: Fever Eyes: No: Visual changes HENT: No: Headaches Cardiovascular: Positive: Palpitations, No: Chest Pain or Discomfort Respiratory: No: Shortness of Breath Gastrointestinal: No: Abdominal Pain Genitourinary: No: Dysuria Musculoskeletal: No: Pain Skin: No Rash Neurologic: No: Weakness Psychiatric: No: Depression Endocrine: No: Polydipsia Hematologic/Lymphatic: No: Easy Bruising Physical Exam Narrative GENERAL: Well-nourished, well-developed patient. SKIN: Focused skin assessment warm/dry. HEAD: Normocephalic. EYES: No scleral icterus. No injection or drainage. NECK: Supple, trachea midline. No JVD or lymphadenopathy. CARDIOVASCULAR: Irregular rate and rhythm without murmurs, gallops, or rubs. Tachycardia RESPIRATORY: Breath sounds equal bilaterally. No accessory muscle use. GASTROINTESTINAL: Abdomen soft, non-tender, nondistended. MUSCULOSKELETAL: No cyanosis, or edema. BACK: Nontender without obvious deformity. No CVA tenderness. Data Data Last Documented VS Vital Signs Date Time Temp Pulse Resp B/P (MAP) Pulse Ox O2 Delivery O2 Flow Rate FiO2 11/17/16 15:20 94 18 92/65 (74) 98 2.00 11/17/16 14:59 Nasal Cannula 11/17/16 12:15 97.9 Orders Orders Diltiazem Inj (Cardizem Inj) (11/17/16 12:30) Diltiazem Inj (Cardizem Inj) (11/17/16 13:00) Diltiazem Inj (Cardizem Inj) (11/17/16 14:30) Labetalol Inj (Trandate Inj) (11/17/16 15:15) Sodium Chlorid 0.9% 500 Ml Inj (Ns 500 M (11/17/16 15:15) Electrocardiogram (11/17/16 12:14) [facility] Medical Decision Making Medical Screen Exam Complete: Yes Emergency Medical Condition: Yes Differential Diagnosis A. fib, tachycardia, acute coronary syndrome Narrative Course Assessment and plan discussed with patient bedside. Initial EKG revealed atrial fibrillation rate of 124. Patient received IV Cardizem with improved rate control. Patient received labetalol with pulses observed in the 90s. Remains asymptomatic. Diagnosis Primary Impression: Atrial fibrillation Qualified Codes: I48.0 - Paroxysmal atrial fibrillation Patient Instructions: General Instructions Additional Instructions: Encouraged to increase her Cardizem to twice a day. She will follow with cardiology tomorrow. Encouraged to return to emergency room with any onset of new symptoms. Continue anticoagulation. Med/Other Pt SpecificInfo: No Meds Exist/No RX given Disposition: 01 DISCHARGE HOME Condition: Good Boris Pompa MD Nov 17, 2016 12:33
[2016-11-17] MEDS ORDERED: LABETALOL HCL 100 MG/20 ML VIAL IV PUSH ONE (15:15)
[2016-11-17] MEDS ORDERED: SODIUM CHLORID 0.9% 500 ML INJ 500 ML IV ONE (15:15)
--- NOTE | 2016-11-18 14:16 | EKG ---
Date Performed: 11/17/2016 Time Performed: 12:14:35 PTAGE: 81 years EKG: ATRIAL FLUTTER/TACHYCARDIA WITH RAPID VENTRICULAR RESPONSE INDETERMINATE AXIS RIGHT BUNDLE BRANCH BLOCK ABNORMAL ECG Compared to prior tracing no significant change PREVIOUS TRACING : 08/27/2016 04.41 DOCTOR: Christopher Juarez Interpretating Date/Time 11/18/2016 14:15:20
== END 2016-11-17 16:11 | disposition home or self-care (01) ==
LOC: PHED 12:10
DX: I48.0 Paroxysmal atrial fibrillation (principal); I48.92 Unspecified atrial flutter; R00.0 Tachycardia, unspecified; I45.10 Unspecified right bundle-branch block; E78.00 Pure hypercholesterolemia, unspecified; I10 Essential (primary) hypertension; K21.9 Gastro-esophageal reflux disease without esophagitis; Z87.891 Personal history of nicotine dependence
CPT/HCPCS: 93005; 96361; 96374; 96375; 96376; 99284; J7040

== ENCOUNTER 2017-05-01 06:57 | Inpatient (IN) | payer OTHER, MEDICARE ==
[~2017-05-01] VITALS: Ht 157.5 cm; Wt 55.5 kg
[2017-05-01] VITALS (18 sets, daily range): BP systolic 81–131; BP diastolic 44–83; PULSE 46–136; RESP 16–34; TEMP 97.6–98.4; O2SAT 95–99
[~2017-05-01 06:57] MED LIST changes: +SIMV80TA PO
[2017-05-01] MEDS ORDERED: DILTIAZEM HCL 25 MG/5 ML VIAL ONE (07:13)
--- NOTE | 2017-05-01 07:22 | PD ---
HPI Chief Complaint: Cardiac Complaint Time Seen by Provider: 07:07 Travel History International Travel<30 days: No Contact w/Intl Traveler<30days: No History of Present Illness HPI 81yo F with PMH of afib on diltiazem 180mg PO, and xarelto here with c/o palpitations since yesterday at 11am. Said she was hoping it will go away and took an extra diltiazem 120mg last night. However, pt still feel fast heart rate today and blood pressure was low this morning so she did not take her diltiazem this morning. Denies any fever, chest pain, sob, dizziness, n/v, abdominal pain, focal weakness or numbness. Pt had 3 ablations before and follows with Dr. Dean. PFSH Past Medical History Arthritis: No Atrial Fibrillation: Yes Heart Rhythm Problems: Yes (AFIB WITH TWO PREVIOUS ABLATIONS) Cancer: No Cardiovascular Problems: Yes High Cholesterol: Yes Chest Pain: Yes Cerebrovascular Accident: No Diminished Hearing: No Endocrine: No Gastrointestinal Disorders: Yes GERD: Yes Genitourinary: Yes (BLADDER SPASMS) Hiatal Hernia: Yes Hypertension: Yes Immune Disorder: No Musculoskeletal: Yes Neurologic: Yes Psychiatric: No Reproductive: No Respiratory: No Ulcer: Yes Menopausal: Yes : 6 Para: 6 Past Surgical History Abdominal Surgery: No Cardiac Surgery: Yes (CARDIAC ABLATION X3) Gynecologic Surgery: Yes (BARTHOLIN CYST REMOVAL, HYSTERECTOMY ) Hysterectomy: Yes Thoracic Surgery: No Other Surgery: Yes (NASAL) Social History Alcohol Use: Yes (OCC) Tobacco Use: No (SMOKED LESS THAN A YEAR IN THE 1950'S) Substance Use: No Allergies-Medications (Allergen,Severity, Reaction): Coded Allergies: sulfamethoxazole (Unverified Allergy, Severe, Rash, 05/01/17) trimethoprim (Unverified Allergy, Severe, Rash, 05/01/17) Reported Meds & Prescriptions Reported Meds & Active Scripts Active Reported Simvastatin 80 Mg Tab 80 Mg PO HS Prolia Inj (Denosumab) 60 Mg/Ml Inj 60 Mg SQ Q180D Protonix (Pantoprazole Sodium) 40 Mg Tab 40 Mg PO DAILY Xarelto (Rivaroxaban) 15 Mg Tab 15 Mg PO DAILY Review of Systems Except as stated in HPI: all other systems reviewed are Neg Physical Exam Narrative GENERAL: 81yo F not in in distress. SKIN: Focused skin assessment warm/dry. HEAD: Atraumatic. Normocephalic. EYES: Pupils equal and round. No scleral icterus. No injection or drainage. ENT: No nasal bleeding or discharge. Mucous membranes pink and moist. NECK: Trachea midline. No JVD. CARDIOVASCULAR: Tachycardic in the 130s. No murmur appreciated. RESPIRATORY: No accessory muscle use. Clear to auscultation. Breath sounds equal bilaterally. GASTROINTESTINAL: Abdomen soft, non-tender, nondistended. MUSCULOSKELETAL: No obvious deformities. No clubbing. No cyanosis. +Bilateral lower ext edema. NEUROLOGICAL: Awake and alert. No obvious cranial nerve deficits. Motor grossly within normal limits. Normal speech. PSYCHIATRIC: Appropriate mood and affect; insight and judgment normal. Data Data Last Documented VS Vital Signs Date Time Temp Pulse Resp B/P (MAP) Pulse Ox O2 Delivery O2 Flow Rate FiO2 05/01/17 09:00 136 16 103/76 (85) 99 Room Air 05/01/17 07:00 97.6 Orders Orders Diltiazem Inj (Cardizem Inj) (05/01/17 07:13) Complete Blood Count With Diff (05/01/17 07:19) Basic Metabolic Panel (Bmp) (05/01/17 07:19) Thyroid Stimulating Hormone (05/01/17 07:19) Magnesium (Mg) (05/01/17 07:19) Troponin I (05/01/17 07:19) Sodium Chlor 0.9% 1000 Ml Inj (Ns 1000 M (05/01/17 07:30) Prothrombin Time / Inr (Pt) (05/01/17 07:22) Act Partial Throm Time (Ptt) (05/01/17 07:22) Diltiazem Inj (Cardizem Inj) (05/01/17 07:30) Diltiazem Inj (Cardizem Inj) (05/01/17 07:45) Diltiazem Cd (Cardizem Cd) (05/01/17 08:00) Electrocardiogram (05/01/17 07:05) Potassium Chloride (Kcl) (05/01/17 08:30) Vital Signs (Adult) Q15MX4,Q4H (05/01/17 09:10) Hat Brim Curler / Telemetry DEEPA.Q8H (05/01/17 09:10) Cardiac Rhythm DEEPA.Q8H (05/01/17 09:10) Notify Dr: Other (05/01/17 09:10) Diltiazem Inj (Cardizem Inj) (05/01/17 09:15) Admit Order (Ed Use Only) (05/01/17 09:17) Labs Laboratory Tests Test 05/01/17 07:15 White Blood Count 8.1 TH/MM3 Red Blood Count 5.26 MIL/MM3 Hemoglobin 16.0 GM/DL Hematocrit 49.6 % Mean Corpuscular Volume 94.3 FL Mean Corpuscular Hemoglobin 30.4 PG Mean Corpuscular Hemoglobin Concent 32.2 % Red Cell Distribution Width 12.7 % Platelet Count 289 TH/MM3 Mean Platelet Volume 7.9 FL Neutrophils (%) (Auto) 50.0 % Lymphocytes (%) (Auto) 32.1 % Monocytes (%) (Auto) 10.9 % Eosinophils (%) (Auto) 2.6 % Basophils (%) (Auto) 4.4 % Neutrophils # (Auto) 4.0 TH/MM3 Lymphocytes # (Auto) 2.6 TH/MM3 Monocytes # (Auto) 0.9 TH/MM3 Eosinophils # (Auto) 0.2 TH/MM3 Basophils # (Auto) 0.4 TH/MM3 CBC Comment DIFF FINAL Differential Comment Prothrombin Time 11.5 SEC Prothromb Time International Ratio 1.1 RATIO Activated Partial Thromboplast Time 30.4 SEC Blood Urea Nitrogen 15 MG/DL Creatinine 0.92 MG/DL Random Glucose 133 MG/DL Calcium Level 8.9 MG/DL Magnesium Level 1.8 MG/DL Sodium Level 141 MEQ/L Potassium Level 3.3 MEQ/L Chloride Level 106 MEQ/L Carbon Dioxide Level 26.3 MEQ/L Anion Gap 9 MEQ/L Estimat Glomerular Filtration Rate 58 ML/MIN Troponin I 0.14 NG/ML Thyroid Stimulating Hormone 3rd Gen 1.120 uIU/ML MDM Medical Decision Making Medical Screen Exam Complete: Yes Emergency Medical Condition: Yes Interpretation(s) EKG: Aflutter 136bpm. LAD. ST depression V5, V6, V2 which are new. Differential Diagnosis Aflutter vs. dehydration vs. electrolyte abnormality Narrative Course 81yo F with history of afib s/p 3 ablation now on diltiazem here with palpitations and fast heart rate since 11am yesterday. HR is in the high 130s here. Labs reviewed, no leukocytosis. H/H elevated, likely secondary to dehydration. K mildly decreased at 3.3, replaced orally. Troponin is elevated at 0.14. Pt has no chest pain or sob but some ST depression on EKG so will trend troponin. TSH normal. Pt given cardizem 10mg IV but heart rate only went down momentarily. Pt given another 15mg cardizem IV and heart rate stayed in the 90s for a little bit but went back up to 130s. Pt given her usual diltiazem 120mg PO. BP is on the lower side with systolic in the low 100s. Pt given NS IVF. Pt reevaluated at bedside and heart rate is now back to 130s. Will place on cardizem drip and admit. Discussed with Dr. Sarkar who is covering Dr. Dean and he agrees with plan. He wants me to put a consult in for Dr. Dean and she will likely see her this afternoon. Critical Care Narrative Aggregate critical care time was 45 minutes. Time to perform other separately billable procedures was not included in the critical care time. My time did not include minutes spent treating any other patients simultaneously or on activities that did not directly contribute to the patient's treatment. The services I provided to this patient were to treat and/or prevent clinically significant deterioration that could result in: cardiovascular collapse or . I provided critical care services requiring my management, as noted below: Chart data review, documentation time, medication orders and management, vital sign assessments/reviewing monitor data, ordering and reviewing lab tests, ordering and interpreting/reviewing x-rays and diagnostic studies, care of the patient and discussion of the patient with the admitting physicians. Diagnosis Primary Impression: Atrial fibrillation with RVR Admitting Information Admitting Physician Requests: Admit Scripts Diltiazem CD 24 HR (Diltiazem CD 24 HR) 240 Mg Caper 240 MG PO DAILY for Blood Pressure Management, #30 CAP Prov: Abhay Trejo MD 05/02/17 Sachi Tariq DO May 01, 2017 07:22
[2017-05-01] MEDS ORDERED: HYDR12.56 PO (07:29)
[2017-05-01] MEDS ORDERED: DILT120C50 PO (07:29)
[2017-05-01] MEDS ORDERED: DILTIAZEM HCL 25 MG/5 ML VIAL IV ONE ×2 (07:30→07:45)
[2017-05-01] MEDS ORDERED: SODIUM CHLOR 0.9% 1000 ML INJ 1,000 ML IV ONE (07:30)
[2017-05-01 07:32] LABS: BASOPHIL # 0.4 TH/MM3 (0-0.2); BASOPHIL % 4.4 % (0.0-2.0); EOSINOPHIL # 0.2 TH/MM3 (0-0.4); EOSINOPHIL % 2.6 % (0.0-4.0); HEMATOCRIT 49.6 % (35.0-46.0); LYMPH % 32.1 % (9.0-44.0); LYMPHOCYTE # 2.6 TH/MM3 (1.0-4.8); MEAN CELL VOLUME 94.3 FL (80.0-100.0); MEAN CORPUSCULAR HEMOGLOBIN 30.4 PG (27.0-34.0); MEAN CORPUSCULAR HGB CONC 32.2 % (32.0-36.0); MEAN PLATELET VOLUME 7.9 FL (7.0-11.0); MONO % 10.9 % (0.0-8.0); MONOCYTE # 0.9 TH/MM3 (0-0.9); PLATELET COUNT 289 TH/MM3 (150-450); RED BLOOD COUNT 5.26 MIL/MM3 (4.00-5.30); RED CELL DISTRIBUTION WIDTH 12.7 % (11.6-17.2); WHITE BLOOD COUNT 8.1 TH/MM3 (4.0-11.0)
[2017-05-01 07:44] LABS: CALCIUM 8.9 MG/DL (8.5-10.1)
[2017-05-01 07:45] LABS: BICARBONATE 26.3 MEQ/L (21.0-32.0); MAGNESIUM 1.8 MG/DL (1.5-2.5)
[2017-05-01 07:46] LABS: INTERNATIONAL NORMALIZED RATIO 1.1 RATIO; PROTHROMBIN TIME - PATIENT 11.5 SEC (9.8-11.6)
[2017-05-01 07:48] LABS: CREATININE 0.92 MG/DL (0.50-1.00)
[2017-05-01 07:53] LABS: TROPONIN I 0.14 NG/ML (0.02-0.05)
[2017-05-01] MEDS ORDERED: DILTIAZEM-CD 120 MG CAP ER PO ONE (08:00)
[2017-05-01] MEDS ORDERED: POTASSIUM CHLORIDE 20 MEQ CONTROLLED RELEASE TAB PO ONE (08:30)
[2017-05-01] MEDS ORDERED: DILTIAZEM INJ 125 MG in SODIUM CHLORIDE 0.9% INJ 100 ML IV PRN (09:15)
[2017-05-01] MEDS ORDERED: NALOXONE HCL 0.4 MG/ML AMP IV PUSH PRN (10:00)
[2017-05-01] MEDS ORDERED: ACETAMINOPHEN 325 MG TAB PO PRN (10:00)
[2017-05-01] MEDS ORDERED: SENNOSIDES 8.6 MG TAB PO PRN (10:00)
[2017-05-01] MEDS ORDERED: SODIUM CHLORIDE 0.9% FLUSH 10 ML FLUSH IV FLUSH PRN (10:00)
[2017-05-01] MEDS ORDERED: ONDANSETRON HCL 4 MG/2 ML VIAL IVP PRN (10:00)
[2017-05-01] MEDS ORDERED: DILTIAZEM-CD 120 MG CAP ER PO SCH (10:30)
[2017-05-01] MEDS: PANTOPRAZOLE SOD 40 MG DELAYED RELEASE TAB PO SCH (11:00)
[2017-05-01] MEDS: RIVAROXABAN 15 MG TAB PO SCH (11:00)
[2017-05-01] MEDS ORDERED: HYDROCHLOROTHIAZIDE 12.5 MG CAP PO SCH (11:00)
[2017-05-01] MEDS ORDERED: DIGOXIN 0.5 MG/2 ML VIAL IVS ONE (13:15)
--- NOTE | 2017-05-01 13:32 | MB ---
cc: Juan Pablo Lee MD DATE OF CONSULT: 05/01/2017 REASON FOR CONSULTATION: Atrial fibrillation with elevated troponin. HISTORY OF PRESENT ILLNESS: The patient is a very pleasant 81-year-old woman who sees my partner, Dr. Tyler, for a history of paroxysmal atrial fibrillation maintained on Xarelto. She has been doing well in her usual state of health when she noticed palpitations yesterday evening. She said usually these last only a few minutes, but these persisted throughout the night so she presented to the emergency department and was found to be in a rapid atrial fibrillation. She has been started on a diltiazem drip and she says she feels much better and she is still maintaining heart rates in the 130s. Additionally, her troponin was slightly elevated and thus I was consulted. She has no chest pain, shortness of breath, light headedness, or dizziness and her palpitations have resolved. PAST MEDICAL HISTORY: 1. Atrial fibrillation on Xarelto. 2. Bradycardia. 3. Chronic kidney disease. 4. Shortness of breath. 5. GERD. 6. Hypercholesterolemia. 7. Hypertension. 8. SVT. CURRENT MEDICATIONS: 1. Cardizem 180 mg daily. 2. Lipitor 40 mg every bedtime. 3. Microzide 12.5 mg twice a day. 4. Protonix 40 mg daily. 5. Xarelto 15 mg daily. ALLERGIES: SULFAMETHOXAZOLE, TRIMETHOPRIM. PHYSICAL EXAM: VITAL SIGNS: Afebrile, pulse 130, respiratory rate 16, blood pressure 100/75, satting 97 on room air. GENERAL: This is a pleasant, well-appearing woman in no distress. NECK: No JVD. LUNGS: Clear to auscultation bilaterally. CARDIOVASCULAR: Irregularly irregular rhythm in a rapid heartbeat. No significant murmur is appreciated. ABDOMEN: Benign. EXTREMITIES: No edema. LABORATORY DATA: Sodium 141, potassium 3.3, chloride 106, bicarb 26.3, BUN 15, creatinine 0.92, glucose 133, INR is 1.1. White count is 8.1, hematocrit 49.6, platelets 289. Troponin is 0.14. EKG from admission shows an atrial fibrillation/tachycardia at 136 beats per minute. Telemetry shows mostly regular-appearing narrow complex tachycardia, although occasionally she slows down and fibrillation waves do appear to be present. IMPRESSION: 1. Paroxysmal atrial fibrillation: The patient is currently having paroxysmal atrial fibrillation (versus an atrial tachycardia). She is on a Cardizem drip and has oral Cardizem on board. Her blood pressure is somewhat marginal, so I will add Digoxin to help rate control her further and hold her diuretic. She is already on Xarelto for anticoagulation which should be continued. Regarding her Xarelto dose, she is only getting 15 mg daily, although her creatinine clearance is just above the 50 mL/min threshold which would qualify her for a full dose of Xarelto. I will defer changing her dose to her primary outdoor recreation specialist, Dr. Tyler, as she maintains currently the dose that she is on in the office as well. 2. Elevated troponin: The patient has a newly elevated troponin likely due to her rapid heart rate, although I see has not had any stress test in our office in quite a while. I will have her undergo a nuclear stress test assuming no major increase to her troponin levels. If her heart rate is controlled off her Cardizem drip and her stress test is non-ischemic, she likely can be discharged tomorrow. I will ask my partners to followup tomorrow morning. Thank you again for the opportunity to participate in this patient's care. MD ROMEO Giles/ANGEL , 12:57 PM , 01:31 PM
[2017-05-01] MEDS ORDERED: SODIUM CHLORID 0.9% 500 ML INJ 500 ML IV ONE (14:00)
--- NOTE | 2017-05-01 14:09 | HHI.HP ---
cc: Annette Tyler MD [facility] Service [facility] Primary Care Physician Jaime Noonan MD Admission Diagnosis Afib RVR, elevated troponin Diagnoses: Travel History International Travel<30 Days: No Contact w/Intl Traveler <30 Da: No Traveled to Known Affected Are: No Review of Systems Constitutional: DENIES: Diaphoretic episodes, Fatigue, Fever, Weight gain, Weight loss, Chills, Dizziness, Change in appetite, Night Sweats Endocrine: DENIES: Abnorml menstrual pattern, Heat/cold intolerance, Polydipsia , Polyuria, Polyphagia Eyes: DENIES: Blurred vision, Diplopia, Eye inflammation, Eye pain, Vision loss , Photosensitivity, Double Vision Ears, nose, mouth, throat: DENIES: Tinnitus, Hearing loss, Vertigo, Nasal discharge, Oral lesions, Throat pain, Hoarseness, Ear Pain, Running Nose, Epistaxis, Sinus Pain, Toothache, Odynophagia Respiratory: DENIES: Apneas, Cough, Snoring, Wheezing, Hemoptysis, Sputum production, Shortness of breath Cardiovascular: COMPLAINS OF: Palpitations, DENIES: Chest pain, Syncope, Dyspnea on Exertion, PND, Lower Extremity Edema, Orthopnea, Claudication Gastrointestinal: DENIES: Abdominal pain, Black stools, Bloody stools, Constipation, Diarrhea, Nausea, Vomiting, Difficulty Swallowing, Anorexia Genitourinary: DENIES: Abnormal vaginal bleeding, Dysmenorrhea, Dyspareunia, Sexual dysfunction, Urinary frequency, Urinary incontinence, Urgency, Hematuria , Dysuria, Nocturia, Vaginal discharge Musculoskeletal: DENIES: Joint pain, Muscle aches, Stiffness, Joint Swelling, Back pain, Neck pain Integumentary: DENIES: Abnormal pigmentation, Pruritus, Rash, Nail changes, Breast masses, Breast skin changes, Nipple discharge Hematologic/lymphatic: DENIES: Bruising, Lymphadenopathy Immunologic/allergic: DENIES: Eczema, Urticaria Neurologic: DENIES: Abnormal gait, Headache, Localized weakness, Paresthesias, Seizures, Speech Problems, Tremor, Poor Balance Psychiatric: DENIES: Anxiety, Confusion, Mood changes, Depression, Hallucinations, Agitation, Suicidal Ideation, Homicidal Ideation, Delusions Except as stated in HPI: all other systems reviewed are Neg Past Family Social History Past Medical History Atrial fibrillation Osteopenia GERD Occasional edema Past Surgical History Cardiac ablation 3, Bartholin's cyst removal Hysterectomy Nasal surgery Reported Medications Reviewed in the EMR, and increased her dose of hydrochlorothiazide over the last 2 weeks Allergies: Coded Allergies: sulfamethoxazole (Unverified Allergy, Severe, Rash, 05/01/17) trimethoprim (Unverified Allergy, Severe, Rash, 05/01/17) Active Ordered Medications Reviewed in the EMR Family History Mother her brain tumor, father from throat cancer Social History Lives independently alone, quite active at the gym daily, no tobacco dependency , occasional alcohol but none alcohol dependence Physical Exam Vital Signs Vital Signs Date Time Temp Pulse Resp B/P (MAP) Pulse Ox O2 Delivery O2 Flow Rate FiO2 05/01/17 13:33 65 05/01/17 11:12 130 16 100/75 (83) 97 05/01/17 10:49 133 16 112/83 (93) 96 Room Air 05/01/17 10:45 133 112/83 05/01/17 10:35 135 114/75 05/01/17 10:35 132 16 114/75 (88) 96 Room Air 05/01/17 09:59 135 103/76 05/01/17 09:55 133 16 103/74 (84) 98 Room Air 05/01/17 09:00 136 16 103/76 (85) 99 Room Air 05/01/17 07:55 136 16 108/65 (79) 95 Room Air 05/01/17 07:40 135 16 108/73 (85) 98 Room Air 05/01/17 07:05 96 16 102/74 (83) 98 Room Air 05/01/17 07:00 Room Air 05/01/17 07:00 97.6 135 16 131/75 (93) 97 Physical Exam GENERAL: This is a well-nourished, well-developed patient, in no apparent distress. SKIN: No rashes, ecchymoses or lesions. Cool and dry. HEAD: Atraumatic. Normocephalic. No temporal or scalp tenderness. EYES: Pupils equal round and reactive. Extraocular motions intact. No scleral icterus. No injection or drainage. ENT: Nose without bleeding, purulent drainage or septal hematoma. Throat without erythema, tonsillar hypertrophy or exudate. Uvula midline. Airway patent. NECK: Trachea midline. No JVD or lymphadenopathy. Supple, nontender, no meningeal signs. CARDIOVASCULAR: A. fib bradycardia without murmurs, gallops, or rubs. RESPIRATORY: Clear to auscultation. Breath sounds equal bilaterally. No wheezes , rales, or rhonchi. GASTROINTESTINAL: Abdomen soft, non-tender, nondistended. No hepato-splenomegaly , or palpable masses. No guarding. MUSCULOSKELETAL: Extremities without clubbing, cyanosis, or edema. No joint tenderness, effusion, or edema noted. No calf tenderness. Negative Homans sign bilaterally. NEUROLOGICAL: Awake and alert. Cranial nerves II through XII intact. Motor and sensory grossly within normal limits. Five out of 5 muscle strength in all muscle groups. Normal speech. Laboratory Laboratory Tests Test 05/01/17 07:15 White Blood Count 8.1 Red Blood Count 5.26 Hemoglobin 16.0 Hematocrit 49.6 Mean Corpuscular Volume 94.3 Mean Corpuscular Hemoglobin 30.4 Mean Corpuscular Hemoglobin Concent 32.2 Red Cell Distribution Width 12.7 Platelet Count 289 Mean Platelet Volume 7.9 Neutrophils (%) (Auto) 50.0 Lymphocytes (%) (Auto) 32.1 Monocytes (%) (Auto) 10.9 Eosinophils (%) (Auto) 2.6 Basophils (%) (Auto) 4.4 Neutrophils # (Auto) 4.0 Lymphocytes # (Auto) 2.6 Monocytes # (Auto) 0.9 Eosinophils # (Auto) 0.2 Basophils # (Auto) 0.4 CBC Comment DIFF FINAL Differential Comment Prothrombin Time 11.5 Prothromb Time International Ratio 1.1 Activated Partial Thromboplast Time 30.4 Blood Urea Nitrogen 15 Creatinine 0.92 Random Glucose 133 Calcium Level 8.9 Magnesium Level 1.8 Sodium Level 141 Potassium Level 3.3 Chloride Level 106 Carbon Dioxide Level 26.3 Anion Gap 9 Estimat Glomerular Filtration Rate 58 Troponin I 0.14 Thyroid Stimulating Hormone 3rd Gen 1.120 Result Diagram: 05/01/1715 05/01/1715 Caprini VTE Risk Assessment Caprini VTE Risk Assessment: Mod/High Risk (score >= 2) VTE Pharm Contraindication: Coagulopathy,INR elevated Caprini Risk Assessment Model Point Value = 1 Point Value = 2 Point Value = 3 Point Value = 5 Age 41-60 Minor surgery BMI > 25 kg/m2 Swollen legs Varicose veins or History of unexplained or recurrent spontaneous Oral contraceptives or hormone replacement Sepsis (< 1 month) Serious lung disease, including pneumonia (< 1 month) Abnormal pulmonary function Acute myocardial infarction Congestive heart failure (< 1 month) History of inflammatory bowel disease Medical patient at bed rest Age 61-74 Arthroscopic surgery Major open surgery (> 45 min) Laparoscopic surgery (> 45 min) Malignancy Confined to bed (> 72 hours) Immobilizing plaster cast Central venous access Age >= 75 History of VTE Family history of VTE Factor V Leiden Prothrombin [id number] Lupus anticoagulant Anticardiolipin antibodies Elevated serum homocysteine Heparin-induced thrombocytopenia Other congenital or acquired thrombophilia Stroke (< 1 month) Elective arthroplasty Hip, pelvis, or leg fracture Acute spinal cord injury (< 1 month) Prophylaxis Regimen Total Risk Factor Score Risk Level Prophylaxis Regimen 0-1 Low Early ambulation 2 Moderate Order ONE of the following: *Sequential Compression Device (SCD) *Heparin 5000 units SQ BID 3-4 Higher Order ONE of the following medications: *Heparin 5000 units SQ TID *Enoxaparin/Lovenox 40 mg SQ daily (WT < 150 kg, CrCl > 30 mL/min) *Enoxaparin/Lovenox 30 mg SQ daily (WT < 150 kg, CrCl > 10-29 mL/min) *Enoxaparin/Lovenox 30 mg SQ BID (WT < 150 kg, CrCl > 30 mL/min) AND/OR *Sequential Compression Device (SCD) 5 or more Highest Order ONE of the following medications: *Heparin 5000 units SQ TID (Preferred with Epidurals) *Enoxaparin/Lovenox 40 mg SQ daily (WT < 150 kg, CrCl > 30 mL/min) *Enoxaparin/Lovenox 30 mg SQ daily (WT < 150 kg, CrCl > 10-29 mL/min) *Enoxaparin/Lovenox 30 mg SQ BID (WT < 150 kg, CrCl > 30 mL/min) AND *Sequential Compression Device (SCD) Assessment and Plan Problem List: (1) Dehydration ICD Code: E86.0 - Dehydration Plan: Patient did take quite a bit of hydrochlorothiazide in fact she doubled the dose for 2 weeks due to ankle edema. This could explain some of the dehydration, will add some IV fluids and follow clinically (2) Hypokalemia ICD Code: E87.6 - Hypokalemia Plan: Continue to replace and follow trend (3) Atrial fibrillation with RVR ICD Code: I48.91 - Unspecified atrial fibrillation Status: Acute Plan: Improved on Cardizem IV, we will DC the drip as her rate is now in the low 40s We will hold digoxin as the patient's heart rate appears to have improved with correction of her potassium and with IV hydration Continue Eliquis (4) GERD (gastroesophageal reflux disease) ICD Code: K21.9 - Gastroesophageal reflux disease Status: Acute Plan: Continue proton pump inhibitor (5) Elevated troponin ICD Code: R74.8 - Abnormal levels of other serum enzymes Plan: Follow-up stress test per cardiology Code Status Full code Discussed Condition With Patient, ER MD, [employer] SALESPERSON Physician Certification 2 Midnight Certification Type: Admission for Inpatient Services Order for Inpatient Services The services are ordered in accordance with Medicare regulations or non- Medicare payer requirements, as applicable. In the case of services not specified as inpatient-only, they are appropriately provided as inpatient services in accordance with the 2-midnight benchmark. Estimated LOS (days): 2 2 days is the estimated time the patient will need to remain in the hospital, assuming treatment plan goals are met and no additional complications. Post-Hospital Plan: Kristina Sullivan MD May 01, 2017 14:09
[2017-05-01 14:49] LABS: TROPONIN I 0.13 NG/ML (0.02-0.05)
--- NOTE | 2017-05-01 18:18 | EKG ---
Date Performed: 05/01/2017 Time Performed: 07:05:29 PTAGE: 81 years EKG: POSSIBLE ATRIAL TACHYCARDIA WITH RAPID VENTRICULAR RESPONSE BORDERLINE LEFT AXIS DEVIATION NONSPECIFIC ST ABNORMALITY ABNORMAL ECG PREVIOUS TRACING : 11/17/2016 12.14 Compared to previous tracing, right bundle branch block is no longer evident. DOCTOR: Rajan Sarkar Interpretating Date/Time 05/01/2017 18:18:02
[2017-05-01] MEDS ORDERED: DIGOXIN 0.5 MG/2 ML VIAL IVS SCH (19:00)
[2017-05-01 20:32] LABS: TROPONIN I 0.23 NG/ML (0.02-0.05)
[2017-05-01] MEDS ORDERED: ATORVASTATIN 40 MG TAB PO SCH (21:00)
[2017-05-01] MEDS ORDERED: SODIUM CHLORIDE 0.9% FLUSH 10 ML FLUSH IV FLUSH SCH (21:00)
--- NOTE | 2017-05-01 23:37 | EKG ---
Date Performed: 05/01/2017 Time Performed: 19:49:24 PTAGE: 81 years EKG: SUPRAVENTRICULAR BRADYCARDIA LOW QRS VOLTAGE IN EXTREMITY LEADS NONSPECIFIC T-WAVE ABNORMAL ITY ABNORMAL RHYTHM ECG PREVIOUS TRACING : 05/01/2017 14.09 Since the prior tracing, there has been no significant retana DOCTOR: Chase Serrano Interpretating Date/Time 05/01/2017 23:36:52
[2017-05-02] VITALS (47 sets, daily range): BP systolic 89–119; BP diastolic 53–75; PULSE 40–152; RESP 11–31; TEMP 98.4; O2SAT 90–99
--- NOTE | 2017-05-02 00:02 | EKG ---
Date Performed: 05/01/2017 Time Performed: 14:09:58 PTAGE: 81 years EKG: ATRIAL FLUTTER/TACHYCARDIA WITH SLOW VENTRICULAR RESPONSE INDETERMINATE AXIS RIGHT BUNDLE B RANCH BLOCK ABNORMAL ECG PREVIOUS TRACING : 05/01/2017 07.05 Compared to prior tracing, now Aflutter with slow response with RBBB DOCTOR: Chase Serrano Interpretating Date/Time 05/02/2017 00:01:08
[2017-05-02] MEDS ORDERED: DILTIAZEM INJ 125 MG in SODIUM CHLORIDE 0.9% INJ 100 ML IV PRN (03:00)
[2017-05-02 05:27] LABS: AUTOMATED NEUTROPHIL # 2.4 TH/MM3 (1.8-7.7); BASOPHIL # 0.1 TH/MM3 (0-0.2); BASOPHIL % 2.6 % (0.0-2.0); EOSINOPHIL # 0.2 TH/MM3 (0-0.4); EOSINOPHIL % 3.5 % (0.0-4.0); HEMATOCRIT 42.4 % (35.0-46.0); HEMOGLOBIN 13.9 GM/DL (11.6-15.3); LYMPH % 40.9 % (9.0-44.0); LYMPHOCYTE # 2.3 TH/MM3 (1.0-4.8); MEAN CELL VOLUME 95.1 FL (80.0-100.0); MEAN CORPUSCULAR HEMOGLOBIN 31.1 PG (27.0-34.0); MEAN CORPUSCULAR HGB CONC 32.7 % (32.0-36.0); MONO % 8.3 % (0.0-8.0); MONOCYTE # 0.5 TH/MM3 (0-0.9); NEUT % 44.7 % (16.0-70.0); PLATELET COUNT 220 TH/MM3 (150-450); RED BLOOD COUNT 4.46 MIL/MM3 (4.00-5.30); RED CELL DISTRIBUTION WIDTH 12.6 % (11.6-17.2); WHITE BLOOD COUNT 5.5 TH/MM3 (4.0-11.0)
[2017-05-02 05:35] LABS: BICARBONATE 27.2 MEQ/L (21.0-32.0); CALCIUM 8.2 MG/DL (8.5-10.1)
[2017-05-02 05:39] LABS: CREATININE 0.8 MG/DL (0.50-1.00)
[2017-05-02] MEDS: PANTOPRAZOLE SOD 40 MG DELAYED RELEASE TAB PO SCH (08:42)
[2017-05-02] MEDS: RIVAROXABAN 15 MG TAB PO SCH (08:42)
[2017-05-02] MEDS ORDERED: SODIUM CHLOR 0.9% 1000 ML INJ 1,000 ML IV ONE (09:00)
[2017-05-02] MEDS ORDERED: DIGOXIN 0.125 MG TAB PO SCH (09:00)
[2017-05-02] MEDS ORDERED: DILTIAZEM-CD 240 MG CAP ER PO SCH (09:00)
[2017-05-02] MEDS ORDERED: DILTIAZEM-CD 180 MG CAP ER PO SCH (09:00)
[2017-05-02] MEDS ORDERED: REGADENOSON INJ 0.4 MG/5 ML SYR IV ONE (09:52)
--- NOTE | 2017-05-02 11:19 | RADRPT ---
EXAM DATE/TIME: 05/02/2017 09:53 [place] COMPARISON: No previous studies available for comparison. INDICATIONS : Palpitations. Abnormal EKG. DOSE: 25.9 mCi Tc99m Myoview at stress. 8.6 mCi Tc99m Myoview at rest. 0.4 mg Lexiscan STRESS SYMPTOMS: None noted. EJECTION FRACTION: > 70% MEDICAL HISTORY : Hypercholesterolemia. Hypertension. Gastroesophageal reflux disease. SURGICAL HISTORY : Hysterectomy. Ablations. ENCOUNTER: Initial ACUITY: 1 day PAIN SCALE: 0/10 LOCATION: chest TECHNIQUE: The patient underwent pharmacologic stress with infusion of prescribed dose. Continuous ECG tracing was monitored during stress. Gated SPECT imaging was performed after stress and conventional SPECT i maging was performed at rest. The examination was performed on a SPECT/CT scanner, both attenuation and non-corrected datasets were reviewed. FINDINGS: The best perfused myocardium is the lateral wall. There is minimal redistribution in the inferior wa ll although small segment of the basal myocardium. The ejection fraction of greater than 70% with ve ry minimal hypokinesis in this area. CONCLUSION: Minimal, borderline significant redistribution is described above RISK CATEGORY: Low (<1% Annual Mortality Rate) Kamran Mahajan MD FACR on May 02, 2017 at 11:15 Board Certified Radiologist. This report was verified electronically.
--- NOTE | 2017-05-02 11:34 | PD.CARD.PN ---
Subjective Subjective Remarks Pt feels well, no cp/sob, converted back to NSR Objective Medications Current Medications Medications (Trade) Dose Ordered Sig/Moshe Route Start Time Stop Time Status Last Admin (NS Flush) 2 ml UNSCH PRN IV FLUSH 05/01/17 10:00 (NS Flush) 2 ml BID IV FLUSH 05/01/17 21:00 05/01/17 20:23 (Tylenol) 650 mg Q4H PRN PO 05/01/17 10:00 (Zofran Inj) 4 mg Q6H PRN IVP 05/01/17 10:00 (Narcan Inj) 0.4 mg UNSCH PRN IV PUSH 05/01/17 10:00 (Senokot) 17.2 mg Q12H PRN PO 05/01/17 10:00 (Protonix) 40 mg DAILY PO 05/01/17 11:00 05/02/17 08:42 (Xarelto) 15 mg DAILY PO 05/01/17 11:00 05/02/17 08:42 (Lipitor) 40 mg HS PO 05/01/17 21:00 05/01/17 20:23 (Lanoxin Inj) 0.25 mg Q6H IVS 05/01/17 19:00 Future Hold (Cardizem Cd) 240 mg DAILY PO 05/02/17 09:00 05/02/17 08:42 Vital Signs / I&O Vital Signs Date Time Temp Pulse Resp B/P (MAP) Pulse Ox O2 Delivery O2 Flow Rate FiO2 05/02/17 09:30 48 14 96/53 (67) 93 05/02/17 09:15 52 15 93 05/02/17 09:00 56 16 99/54 (69) 93 05/02/17 08:45 58 26 94 05/02/17 08:30 54 16 100/55 (70) 93 05/02/17 08:15 52 16 99 05/02/17 08:00 52 05/02/17 08:00 52 16 103/54 (70) 99 05/02/17 07:30 54 18 96/60 (72) 98 05/02/17 07:15 54 17 98 05/02/17 07:00 62 29 105/57 (73) 97 05/02/17 06:45 52 14 98 05/02/17 06:30 52 16 99/58 (72) 99 05/02/17 06:15 50 12 98 318 06:00 50 14 94/56 (69) 96 05/02/17 05:50 48 13 97 05/02/17 05:35 126 13 96 05/02/17 05:30 124 15 107/71 (83) 95 05/02/17 05:25 138 15 91 05/02/17 05:20 138 11 97 05/02/17 05:15 126 12 96 05/02/17 05:10 124 16 93 05/02/17 05:05 136 23 97 05/02/17 05:00 152 27 05/02/17 04:55 124 20 97 05/02/17 04:50 126 14 96 05/02/17 04:45 128 14 94 05/02/17 04:40 124 15 95 05/02/17 04:35 140 14 96 05/02/17 04:30 144 14 112/73 (86) 96 05/02/17 04:25 126 14 95 05/02/17 04:20 126 14 97 05/02/17 04:15 122 14 95 05/02/17 04:10 118 14 95 05/02/17 04:05 132 16 94 05/02/17 04:00 124 15 109/67 (81) 90 05/02/17 04:00 98.4 124 16 109/67 (81) 90 18 04:00 124 05/02/17 03:51 124 20 109/75 (86) 95 05/02/17 03:45 126 16 114/70 (85) 05/02/17 03:30 126 14 05/02/17 03:15 126 14 05/02/17 03:00 144 15 05/02/17 03:00 144 119/70 18 02:45 128 14 18 02:30 128 16 18 02:25 128 20 119/70 (86) 18 02:15 62 14 05/02/17 02:00 62 31 05/02/17 00:00 40 05/02/17 00:00 98.4 40 16 89/60 (70) 95 05/01/17 20:00 46 05/01/17 20:00 98.3 46 18 93/44 (60) 95 05/01/17 16:20 97.8 46 21 90/55 (67) 95 05/01/17 16:20 46 05/01/17 14:02 46 05/01/17 14:00 48 34 96/45 (62) 05/01/17 13:45 57 05/01/17 13:33 65 05/01/17 13:05 95 05/01/17 12:39 104 20 92/69 (77) 05/01/17 12:38 94 18 81/49 (60) 05/01/17 12:00 116 17 98/73 (81) I/O 05/01/17 05/01/17 05/01/17 05/02/17 05/02/17 05/02/17 07:00 15:00 23:00 07:00 15:00 23:00 Intake Total 1540 ml 600 ml 240 ml Balance 1540 ml 600 ml 240 ml Intake Oral 600 ml 240 ml IV Total 1540 ml # Voids 1 1 3 Physical Exam GENERAL: This is a well-nourished, well-developed patient, in no apparent distress. CARDIOVASCULAR: Regular rate and rhythm without murmurs, gallops, or rubs. RESPIRATORY: Clear to auscultation. Breath sounds equal bilaterally. No wheezes , rales, or rhonchi. GASTROINTESTINAL: Abdomen soft, non-tender, nondistended. Normal active bowel sounds MUSCULOSKELETAL: Extremities without clubbing, cyanosis, or edema. NEURO: Alert & Oriented x4 to person, place, time, situation. Moves all ext x4 Laboratory Laboratory Tests Test 05/01/17 14:07 05/01/17 20:00 05/02/17 04:45 Total Creatine Kinase 37 U/L 36 U/L Troponin I 0.13 NG/ML 0.23 NG/ML White Blood Count 5.5 TH/MM3 Red Blood Count 4.46 MIL/MM3 Hemoglobin 13.9 GM/DL Hematocrit 42.4 % Mean Corpuscular Volume 95.1 FL Mean Corpuscular Hemoglobin 31.1 PG Mean Corpuscular Hemoglobin Concent 32.7 % Red Cell Distribution Width 12.6 % Platelet Count 220 TH/MM3 Mean Platelet Volume 8.0 FL Neutrophils (%) (Auto) 44.7 % Lymphocytes (%) (Auto) 40.9 % Monocytes (%) (Auto) 8.3 % Eosinophils (%) (Auto) 3.5 % Basophils (%) (Auto) 2.6 % Neutrophils # (Auto) 2.4 TH/MM3 Lymphocytes # (Auto) 2.3 TH/MM3 Monocytes # (Auto) 0.5 TH/MM3 Eosinophils # (Auto) 0.2 TH/MM3 Basophils # (Auto) 0.1 TH/MM3 CBC Comment DIFF FINAL Differential Comment Blood Urea Nitrogen 16 MG/DL Creatinine 0.80 MG/DL Random Glucose 103 MG/DL Calcium Level 8.2 MG/DL Sodium Level 143 MEQ/L Potassium Level 3.9 MEQ/L Chloride Level 109 MEQ/L Carbon Dioxide Level 27.2 MEQ/L Anion Gap 7 MEQ/L Estimat Glomerular Filtration Rate 69 ML/MIN Imaging Last Impressions Myocardial Perfusion Scan Nuc Med 05/02/17599 Signed Impressions: Service Date/Time: Tuesday, May 02, 2017 09:53 - CONCLUSION: Minimal, borderline significant redistribution is described above RISK CATEGORY: Low (<1%% Annual Mortality Rate) Kamran Mahajan MD FACR Last 24 hours Impressions Myocardial Perfusion Scan Nuc Med 05/02/17599 Signed Impressions: Service Date/Time: Tuesday, May 02, 2017 09:53 - CONCLUSION: Minimal, borderline significant redistribution is described above RISK CATEGORY: Low (<1%% Annual Mortality Rate) Kamran Mahajan MD FACR Assessment and Plan Problem List: (1) Atrial fibrillation with RVR ICD Codes: I48.91 - Unspecified atrial fibrillation Status: Acute Plan: Now back in NSR; increased diltiazem; advised more PO fluids as she seemed a bit dehydrated on admission; on xarelto; Pt may need increased dose of xarelto given Cr; I am uncertain as to why the lower dose was chosen and there may be reasons of which I am unaware; will defer to her outpatient signal helper. (2) Elevated troponin ICD Codes: R74.8 - Abnormal levels of other serum enzymes Plan: No chest pain, only minimal reversibility on nuc stress unlikely of clinical significance ("low risk"); will continue medical mgt. Assessment and Plan she should see Dr. Tyler in 1-2 weeks. Ok to d/c home from cardiac standpoint. Juan Pablo Lee MD May 02, 2017 11:34
[2017-05-02] MEDS ORDERED: DILT240C44 PO (12:24)
--- NOTE | 2017-05-02 17:52 | HHI.DS ---
Discharge Summary Admission Date May 01, 2017 at 09:19 Discharge Date: May 02, 2017 Admitting Diagnosis Afib RVR, elevated troponin (1) Dehydration ICD Code: E86.0 - Dehydration Diagnosis: Principal (2) Hypokalemia ICD Code: E87.6 - Hypokalemia Diagnosis: Principal (3) Atrial fibrillation with RVR ICD Code: I48.91 - Unspecified atrial fibrillation Diagnosis: Principal Status: Acute (4) GERD (gastroesophageal reflux disease) ICD Code: K21.9 - Gastroesophageal reflux disease Diagnosis: Principal Status: Acute (5) Elevated troponin ICD Code: R74.8 - Abnormal levels of other serum enzymes Diagnosis: Principal Procedures None Brief History - From Admission Admit for A-fib RVR with elevated troponin. CBC/BMP: 05/02/17 0445 05/02/17 0445 Significant Findings Laboratory Tests Test 05/01/17 07:15 05/01/17 14:07 05/01/17 20:00 05/02/17 04:45 Hemoglobin 16.0 GM/DL (11.6-15.3) Hematocrit 49.6 % (35.0-46.0) Monocytes (%) (Auto) 10.9 % (0.0-8.0) 8.3 % (0.0-8.0) Basophils (%) (Auto) 4.4 % (0.0-2.0) 2.6 % (0.0-2.0) Basophils # (Auto) 0.4 TH/MM3 (0-0.2) Activated Partial Thromboplast Time 30.4 SEC (24.3-30.1) Random Glucose 133 MG/DL (74-106) Potassium Level 3.3 MEQ/L (3.5-5.1) Estimat Glomerular Filtration Rate 58 ML/MIN (>89) 69 ML/MIN (>89) Troponin I 0.14 NG/ML (0.02-0.05) 0.13 NG/ML (0.02-0.05) 0.23 NG/ML (0.02-0.05) Calcium Level 8.2 MG/DL (8.5-10.1) Chloride Level 109 MEQ/L (98-107) Hospital Course Mrs. Kwan is an 81 year old female. She is admitted secondary to A. fib RVR in the presence of dehydration and elevated troponin. Cardizem was started and she has had good rate control since this time. Cardiology has evaluated this patient and cleared her for discharge today. Patient is asymptomatic. Her troponin elevation is likely related to the A. fib RVR and dehydration. She is not rehydrated without symptoms with good rate control and medically stable for discharge to home today. Pt Condition on Discharge: Stable Discharge Disposition: Discharge Home Discharge Time: <= 30 minutes Discharge Instructions DIET: Follow Instructions for: Heart Healthy Diet Activities you can perform: Regular-No Restrictions Follow up Referrals: Cardiology - 2 Weeks PCP Follow-up - 2 Weeks New Medications: Diltiazem CD 24 HR (Diltiazem CD 24 HR) 240 Mg Caper 240 MG PO DAILY for Blood Pressure Management, #30 CAP Continued Medications: Denosumab Inj (Prolia Inj) 60 Mg/Ml Inj 60 MG SQ Q180D, VIAL 0 Refills Pantoprazole (Protonix) 40 Mg Tab 40 MG PO DAILY for Reflux, #30 TAB 0 Refills Rivaroxaban (Xarelto) 15 Mg Tab 15 MG PO DAILY for Blood Clot Prevention, TAB 0 Refills Simvastatin (Simvastatin) 80 Mg Tab 80 MG PO HS for Cholesterol Management, #30 TAB 0 Refills Discontinued Medications: Diltiazem CD 24 HR (Diltiazem CD 24 HR) 120 Mg Caper 180 MG PO DAILY, #30 CAP 0 Refills Hydrochlorothiazide (Hydrochlorothiazide) 12.5 Mg Tab 12.5 MG PO BID, #60 TAB 0 Refills Abhay Trejo MD May 02, 2017 17:52
--- NOTE | 2017-05-03 22:57 | EKG ---
Date Performed: 05/02/2017 Time Performed: 02:40:30 PTAGE: 81 years EKG: ECTOPIC ATRIAL TACHYCARDIA INDETERMINATE AXIS RIGHT BUNDLE BRANCH BLOCK POSSIBLE SEPTAL CHELSIE CARDIAL INFARCTION ABNORMAL ECG PREVIOUS TRACING : 05/01/2017 19.49 Compared to prior tracing, now tachycardic with right bundl e branch block DOCTOR: Chase Serrano Interpretating Date/Time 05/03/2017 22:56:44
== END 2017-05-02 13:06 | disposition home or self-care (01) | DRG 641 ==
LOC: PHED 06:57 → PHEDA 09:19 → PHICU 11:23
PROVIDERS: ADMIT Hospitalist; ATTEND Hospitalist
DX: E86.0 Dehydration (principal); I48.0 Paroxysmal atrial fibrillation; E87.6 Hypokalemia; K21.9 Gastro-esophageal reflux disease without esophagitis; R74.8 Abnormal levels of other serum enzymes; Z79.02 Long term (current) use of antithrombotics/antiplatelets; M85.80 Other specified disorders of bone density and structure, unspecified site; I10 Essential (primary) hypertension; E78.00 Pure hypercholesterolemia, unspecified
CPT/HCPCS: 78452; 80048; 82550; 83735; 84443; 84484; 85025; 85610; 85730; 93005; 93017; 96374; 96376; A9502; J2785; J7030; J7040

== ENCOUNTER 2017-06-21 21:41 | Inpatient (IN) | payer OTHER, MEDICARE ==
[~2017-06-21] VITALS: Ht 154.9 cm; Wt 57.5 kg
[~2017-06-21 21:41] MED LIST changes: -CARD120C4 PO; +DILT240C44 PO
[2017-06-21 21:43] VITALS: BP 146/68; PULSE 119; RESP 18; TEMP 97.8; O2SAT 96
[2017-06-21 21:50] VITALS: O2SAT 95
[2017-06-21] MEDS ORDERED: DILTIAZEM HCL 25 MG/5 ML VIAL IV PUSH ONE (22:15)
[2017-06-21] MEDS ORDERED: SODIUM CHLORID 0.9% 500 ML INJ 500 ML IV ONE (22:15)
[2017-06-21] MEDS ORDERED: SODIUM CHLORIDE 0.9% FLUSH 10 ML FLUSH IVF PRN (22:15)
--- NOTE | 2017-06-21 22:23 | PD ---
HPI Chief Complaint: Cardiac Complaint Time Seen by Provider: 21:52 Travel History International Travel<30 days: No Contact w/Intl Traveler<30days: No Traveled to known affect area: No History of Present Illness HPI Patient is a 82-year-old female history of paroxysmal atrial fibrillation, currently taking Cardizem 250 mg daily, Xarelto 15 mg daily, simvastatin 80 mg daily, presents the emergency room with complaints of A. fib with RVR. Patient reports that symptoms began a few hours prior to presentation to the emergency room. Patient reports that she has been having palpitations and sensations that her heart is racing. She does follow with Dr. Tyler in the office, reports that he does have an appointment with Dr. Celaya this week for possible ablation vs pacemaker placement. Patient reports that "I think I am in afib." Patient denies any chest pain or shortness of breath this time. Patient only complains of rapid heart rate. Patient reports that nothing makes symptoms better or worse, she has been compliant with all her medications. PFSH Past Medical History Hx Anticoagulant Therapy: Yes (XERELTO) Arthritis: No Atrial Fibrillation: Yes Heart Rhythm Problems: Yes (AFIB WITH TWO PREVIOUS ABLATIONS) Cancer: No Cardiovascular Problems: Yes (A-Fib) High Cholesterol: Yes Chemotherapy: No Chest Pain: Yes Cerebrovascular Accident: No Diabetes: No Diminished Hearing: No Endocrine: No Gastrointestinal Disorders: Yes GERD: Yes Genitourinary: Yes (BLADDER SPASMS) Hiatal Hernia: Yes Hypertension: Yes Immune Disorder: No Musculoskeletal: Yes Neurologic: Yes Psychiatric: No Reproductive: No Respiratory: No Ulcer: Yes Tetanus Vaccination: < 5 Years Influenza Vaccination: Yes ?: Not Menopausal: Yes : 6 Para: 6 Past Surgical History Abdominal Surgery: No Cardiac Surgery: Yes (CARDIAC ABLATION X3) Gynecologic Surgery: Yes (BARTHOLIN CYST REMOVAL, HYSTERECTOMY ) Hysterectomy: Yes Neurologic Surgery: No Thoracic Surgery: No Other Surgery: Yes (NASAL) Social History Alcohol Use: Yes (OCC) Tobacco Use: No (SMOKED LESS THAN A YEAR IN THE 1950S) Substance Use: No Allergies-Medications (Allergen,Severity, Reaction): Coded Allergies: sulfamethoxazole (Unverified Allergy, Severe, Rash, 05/01/17) trimethoprim (Unverified Allergy, Severe, Rash, 05/01/17) Reported Meds & Prescriptions Reported Meds & Active Scripts Active Diltiazem CD 24 HR 240 Mg Caper 240 Mg PO DAILY Reported Simvastatin 80 Mg Tab 80 Mg PO HS Prolia Inj (Denosumab) 60 Mg/Ml Inj 60 Mg SQ Q180D Protonix (Pantoprazole Sodium) 40 Mg Tab 40 Mg PO DAILY Xarelto (Rivaroxaban) 15 Mg Tab 15 Mg PO DAILY Review of Systems General / Constitutional: No: Fever Eyes: No: Visual changes HENT: No: Headaches Cardiovascular: Positive: Palpitations, Irregular Rhythm, Tachycardia, No: Chest Pain or Discomfort, Diaphoresis, Syncope Respiratory: No: Cough, Shortness of Breath Gastrointestinal: No: Abdominal Pain Genitourinary: No: Dysuria Musculoskeletal: No: Pain Skin: No Rash Neurologic: No: Weakness Psychiatric: No: Depression Endocrine: No: Polydipsia Hematologic/Lymphatic: No: Easy Bruising Physical Exam Narrative GENERAL: No acute distress SKIN: Focused skin assessment warm/dry. HEAD: Atraumatic. Normocephalic. EYES: Pupils equal and round. No scleral icterus. No injection or drainage. ENT: No nasal bleeding or discharge. Mucous membranes pink and moist. NECK: Trachea midline. No JVD. CARDIOVASCULAR: Irregularly irregular. No murmur appreciated. RESPIRATORY: No accessory muscle use. Clear to auscultation. Breath sounds equal bilaterally. GASTROINTESTINAL: Abdomen soft, non-tender, nondistended. Hepatic and splenic margins not palpable. MUSCULOSKELETAL: No obvious deformities. No clubbing. No cyanosis. No edema. NEUROLOGICAL: Awake and alert. No obvious cranial nerve deficits. Motor grossly within normal limits. Normal speech. PSYCHIATRIC: Appropriate mood and affect; insight and judgment normal. Data Data Last Documented VS Vital Signs Date Time Temp Pulse Resp B/P (MAP) Pulse Ox O2 Delivery O2 Flow Rate FiO2 06/21/17 22:29 114 16 133/80 (97) 95 Room Air 06/21/17 21:43 97.8 Orders Orders Electrocardiogram (06/21/17 ) Basic Metabolic Panel (Bmp) (06/21/17 22:08) Complete Blood Count With Diff (06/21/17 22:08) Magnesium (Mg) (06/21/17 22:08) Prothrombin Time / Inr (Pt) (06/21/17 22:08) Act Partial Throm Time (Ptt) (06/21/17 22:08) Lipase (06/21/17 22:08) Chest, Single Ap (06/21/17 22:08) Ecg Monitoring (06/21/17 22:08) Iv Access Insert/Monitor (06/21/17 22:08) Oximetry (06/21/17 22:08) Sodium Chloride 0.9% Flush (Ns Flush) (06/21/17 22:15) Sodium Chlorid 0.9% 500 Ml Inj (Ns 500 M (06/21/17 22:15) Diltiazem Inj (Cardizem Inj) (06/21/17 22:15) Vital Signs (Adult) Q15MX4,Q4H (06/21/17 22:40) Manager Audio / Telemetry DEEPA.Q8H (06/21/17 22:40) Cardiac Rhythm DEEPA.Q8H (06/21/17 22:40) Notify Dr: Other (06/21/17 22:40) Diltiazem Inj (Cardizem Inj) (06/21/17 22:45) Labs Laboratory Tests Test 06/21/17 22:10 White Blood Count 7.0 TH/MM3 Red Blood Count 4.74 MIL/MM3 Hemoglobin 15.3 GM/DL Hematocrit 44.3 % Mean Corpuscular Volume 93.4 FL Mean Corpuscular Hemoglobin 32.4 PG Mean Corpuscular Hemoglobin Concent 34.7 % Red Cell Distribution Width 13.2 % Platelet Count 302 TH/MM3 Mean Platelet Volume 8.2 FL Neutrophils (%) (Auto) 46.3 % Lymphocytes (%) (Auto) 38.9 % Monocytes (%) (Auto) 9.5 % Eosinophils (%) (Auto) 2.7 % Basophils (%) (Auto) 2.6 % Neutrophils # (Auto) 3.2 TH/MM3 Lymphocytes # (Auto) 2.7 TH/MM3 Monocytes # (Auto) 0.7 TH/MM3 Eosinophils # (Auto) 0.2 TH/MM3 Basophils # (Auto) 0.2 TH/MM3 CBC Comment DIFF FINAL Differential Comment Prothrombin Time 11.5 SEC Prothromb Time International Ratio 1.1 RATIO Activated Partial Thromboplast Time 30.3 SEC Blood Urea Nitrogen 17 MG/DL Creatinine 1.20 MG/DL Random Glucose 115 MG/DL Calcium Level 9.4 MG/DL Magnesium Level 2.3 MG/DL Sodium Level 139 MEQ/L Potassium Level 3.8 MEQ/L Chloride Level 105 MEQ/L Carbon Dioxide Level 28.9 MEQ/L Anion Gap 5 MEQ/L Estimat Glomerular Filtration Rate 43 ML/MIN Lipase 129 U/L MDM Medical Decision Making Medical Screen Exam Complete: Yes Emergency Medical Condition: Yes Medical Record Reviewed: Yes Interpretation(s) EKG at 2202: Atrial tachycardia at 116 bpm Vital Signs Date Time Temp Pulse Resp B/P (MAP) Pulse Ox O2 Delivery O2 Flow Rate FiO2 06/21/17 21:57 16 96 Room Air 06/21/17 21:43 97.8 119 18 146/68 (94) 96 Differential Diagnosis Atrial fibrillation, electrolyte abnormality, arrhythmia Narrative Course 82-year-old female with history of paroxysmal atrial fibrillation, presents the emergency room with complaints of A. fib with RVR. Symptoms began this afternoon, patient currently with a heart rate in the 120's. IV Cardizem ordered for atrial fibrillation with RVR as she is on this medication at home. Laboratory Tests Test 06/21/17 22:10 White Blood Count 7.0 TH/MM3 (4.0-11.0) Red Blood Count 4.74 MIL/MM3 (4.00-5.30) Hemoglobin 15.3 GM/DL (11.6-15.3) Hematocrit 44.3 % (35.0-46.0) Mean Corpuscular Volume 93.4 FL (80.0-100.0) Mean Corpuscular Hemoglobin 32.4 PG (27.0-34.0) Mean Corpuscular Hemoglobin Concent 34.7 % (32.0-36.0) Red Cell Distribution Width 13.2 % (11.6-17.2) Platelet Count 302 TH/MM3 (150-450) Mean Platelet Volume 8.2 FL (7.0-11.0) Neutrophils (%) (Auto) 46.3 % (16.0-70.0) Lymphocytes (%) (Auto) 38.9 % (9.0-44.0) Monocytes (%) (Auto) 9.5 % (0.0-8.0) Eosinophils (%) (Auto) 2.7 % (0.0-4.0) Basophils (%) (Auto) 2.6 % (0.0-2.0) Neutrophils # (Auto) 3.2 TH/MM3 (1.8-7.7) Lymphocytes # (Auto) 2.7 TH/MM3 (1.0-4.8) Monocytes # (Auto) 0.7 TH/MM3 (0-0.9) Eosinophils # (Auto) 0.2 TH/MM3 (0-0.4) Basophils # (Auto) 0.2 TH/MM3 (0-0.2) CBC Comment DIFF FINAL Differential Comment Prothrombin Time 11.5 SEC (9.8-11.6) Prothromb Time International Ratio 1.1 RATIO Activated Partial Thromboplast Time 30.3 SEC (24.3-30.1) Blood Urea Nitrogen 17 MG/DL (7-18) Creatinine 1.20 MG/DL (0.50-1.00) Random Glucose 115 MG/DL (74-106) Calcium Level 9.4 MG/DL (8.5-10.1) Magnesium Level 2.3 MG/DL (1.5-2.5) Sodium Level 139 MEQ/L (136-145) Potassium Level 3.8 MEQ/L (3.5-5.1) Chloride Level 105 MEQ/L (98-107) Carbon Dioxide Level 28.9 MEQ/L (21.0-32.0) Anion Gap 5 MEQ/L (5-15) Estimat Glomerular Filtration Rate 43 ML/MIN (>89) Lipase 129 U/L (73-393) Last Impressions Chest X-Ray 06/21/172207 Signed Impressions: Service Date/Time: Wednesday, June 21, 2017 22:10 - CONCLUSION: No acute disease. Mehul Moreno MD Patient's heart rate in the 108-110s after IV Cardizem was administered, plan to start patient on Cardizem drip for heart rate control. Patient will require admission to the hospital for rate control. case reviewed with Dr. Marquez who accepts pt to service Of note: patient was admitted in April 2017 with afib with rvr with a positive trop. Patient had a myocardial perfusion scan which placed patient at a "low risk" - abnormal ce at that time was most likely due to heart rate Diagnosis Primary Impression: Atrial fibrillation with RVR Admitting Information Admitting Physician Requests: Observation Megan Roy DO Jun 21, 2017 22:23
[2017-06-21 22:25] LABS: AUTOMATED NEUTROPHIL # 3.2 TH/MM3 (1.8-7.7); BASOPHIL # 0.2 TH/MM3 (0-0.2); BASOPHIL % 2.6 % (0.0-2.0); EOSINOPHIL # 0.2 TH/MM3 (0-0.4); EOSINOPHIL % 2.7 % (0.0-4.0); HEMATOCRIT 44.3 % (35.0-46.0); HEMOGLOBIN 15.3 GM/DL (11.6-15.3); LYMPH % 38.9 % (9.0-44.0); LYMPHOCYTE # 2.7 TH/MM3 (1.0-4.8); MEAN CELL VOLUME 93.4 FL (80.0-100.0); MEAN CORPUSCULAR HEMOGLOBIN 32.4 PG (27.0-34.0); MEAN CORPUSCULAR HGB CONC 34.7 % (32.0-36.0); MEAN PLATELET VOLUME 8.2 FL (7.0-11.0); MONO % 9.5 % (0.0-8.0); MONOCYTE # 0.7 TH/MM3 (0-0.9); NEUT % 46.3 % (16.0-70.0); PLATELET COUNT 302 TH/MM3 (150-450); RED BLOOD COUNT 4.74 MIL/MM3 (4.00-5.30); RED CELL DISTRIBUTION WIDTH 13.2 % (11.6-17.2)
[2017-06-21 22:29] VITALS: BP 133/80; PULSE 114; RESP 16; O2SAT 95
--- NOTE | 2017-06-21 22:31 | RADRPT ---
EXAM DATE/TIME: 06/21/2017 22:10 [facility] COMPARISON: CHEST PA & LAT, July 03, 2014, 4:17. INDICATIONS : Palpitations. MEDICAL HISTORY : Hypercholesterolemia. Hypertension. Gastroesophageal reflux disease. SURGICAL HISTORY : Hysterectomy. Ablations ENCOUNTER: Initial ACUITY: 1 day PAIN SCORE: 0/10 LOCATION: Bilateral chest FINDINGS: A single view of the chest demonstrates the lungs to be symmetrically aerated without evidence of mas s, infiltrate or effusion. Minimal scarring left midlung. The cardiomediastinal contours are unremark able. Osseous structures are intact. CONCLUSION: No acute disease. Mehul Moreno MD on June 21, 2017 at 22:28 Board Certified Radiologist. This report was verified electronically.
[2017-06-21 22:35] LABS: CALCIUM 9.4 MG/DL (8.5-10.1)
[2017-06-21 22:36] LABS: BICARBONATE 28.9 MEQ/L (21.0-32.0); INTERNATIONAL NORMALIZED RATIO 1.1 RATIO; MAGNESIUM 2.3 MG/DL (1.5-2.5); PROTHROMBIN TIME - PATIENT 11.5 SEC (9.8-11.6)
[2017-06-21 22:39] LABS: CREATININE 1.2 MG/DL (0.50-1.00)
[2017-06-21] MEDS ORDERED: DILTIAZEM INJ 125 MG in SODIUM CHLORIDE 0.9% INJ 100 ML IV PRN (22:45)
[2017-06-21] MEDS ORDERED: HYDR12.57 PO (22:58)
[2017-06-21] MEDS ORDERED: ACETAMINOPHEN 325 MG TAB PO PRN (23:00)
[2017-06-21] MEDS ORDERED: LACTULOSE SYRUP 20 GM/30 ML CUP PO PRN (23:00)
[2017-06-21] MEDS ORDERED: ACETAMINOPHEN/HYDROcodone 325 MG/10 MG TAB PO PRN (23:00)
[2017-06-21] MEDS ORDERED: MAGNESIUM HYDROXIDE SUSP 30 ML CUP PO PRN (23:00)
[2017-06-21] MEDS ORDERED: BISACODYL 10 MG SUPP RECTAL PRN (23:00)
[2017-06-21] MEDS ORDERED: SENNOSIDES 8.6 MG TAB PO PRN (23:00)
[2017-06-21] MEDS ORDERED: ACETAMINOPHEN/HYDROcodone 325 MG/5 MG TAB PO PRN (23:00)
[2017-06-21] MEDS ORDERED: SODIUM CHLORIDE 0.9% FLUSH 10 ML FLUSH IV FLUSH PRN (23:00)
[2017-06-21] MEDS ORDERED: ONDANSETRON HCL 4 MG/2 ML VIAL IVP PRN (23:00)
[2017-06-21 23:02] VITALS: BP 142/82; PULSE 112; RESP 16; O2SAT 97
[2017-06-21 23:30] VITALS: BP 119/78; PULSE 116; RESP 18; O2SAT 95
[2017-06-21 23:45] VITALS: BP 141/85; PULSE 119; RESP 18; O2SAT 96
[2017-06-21] MEDS: SODIUM CHLOR 0.9% 1000 ML INJ 1,000 ML IV SCH (23:50)
--- NOTE | 2017-06-21 23:55 | EKG ---
Date Performed: 06/21/2017 Time Performed: 22:02:58 PTAGE: 82 years EKG: PROBABLE AFLUTTER WITH RVR MARKED RIGHT AXIS DEVIATION RIGHT BUNDLE BRANCH BLOCK POSSIBLE S EPTAL MYOCARDIAL INFARCTION ABNORMAL ECG PREVIOUS TRACING : 05/02/2017 02.40 Compared to previous tracing, now sinus tachycardia DOCTOR: Chase Serrano Interpretating Date/Time 06/21/2017 23:56:24
[2017-06-22] VITALS (51 sets, daily range): BP systolic 85–126; BP diastolic 46–80; PULSE 40–136; RESP 16–18; TEMP 97.6–98.7; O2SAT 94–99
[2017-06-22 06:37] LABS: AUTOMATED NEUTROPHIL # 3.9 TH/MM3 (1.8-7.7); BASOPHIL # 0.1 TH/MM3 (0-0.2); EOSINOPHIL # 0.2 TH/MM3 (0-0.4); EOSINOPHIL % 2.7 % (0.0-4.0); HEMOGLOBIN 13.8 GM/DL (11.6-15.3); LYMPH % 28.7 % (9.0-44.0); MEAN CORPUSCULAR HEMOGLOBIN 30.8 PG (27.0-34.0); MEAN CORPUSCULAR HGB CONC 32.8 % (32.0-36.0); MEAN PLATELET VOLUME 8.1 FL (7.0-11.0); MONO % 9.7 % (0.0-8.0); MONOCYTE # 0.7 TH/MM3 (0-0.9); NEUT % 56.9 % (16.0-70.0); PLATELET COUNT 226 TH/MM3 (150-450); RED BLOOD COUNT 4.47 MIL/MM3 (4.00-5.30); RED CELL DISTRIBUTION WIDTH 13.2 % (11.6-17.2); WHITE BLOOD COUNT 6.9 TH/MM3 (4.0-11.0)
[2017-06-22 06:51] LABS: CHLORIDE 112 MEQ/L (98-107); SODIUM (NA) 143 MEQ/L (136-145)
[2017-06-22 07:19] LABS: ALBUMIN 3.1 GM/DL (3.4-5.0); ALKALINE PHOSPHATASE 60 U/L (45-117); ALT (GPT) 18 U/L (10-53); AST (GOT) 15 U/L (15-37); BICARBONATE 26.6 MEQ/L (21.0-32.0); BLOOD UREA NITROGEN 13 MG/DL (7-18); CALCIUM 8.3 MG/DL (8.5-10.1); CREATININE 0.81 MG/DL (0.50-1.00); GLOMERULAR FILTRATION RATE 68 ML/MIN (>89); GLUCOSE,RANDOM 99 MG/DL (74-106); TOTAL BILIRUBIN ADULT 0.4 MG/DL (0.2-1.0); TOTAL PROTEIN 5.7 GM/DL (6.4-8.2)
[2017-06-22] MEDS: SODIUM CHLORIDE 0.9% FLUSH 10 ML FLUSH IV FLUSH SCH ×2 (09:00→21:00)
[2017-06-22] MEDS ORDERED: RIVAROXABAN 15 MG TAB PO SCH (09:00)
[2017-06-22] MEDS: DOCUSATE SODIUM 50 MG/SENNA 8.6 MG TAB PO SCH ×2 (09:00→21:00)
[2017-06-22] MEDS: PANTOPRAZOLE SOD 40 MG DELAYED RELEASE TAB PO SCH (09:25)
[2017-06-22] MEDS: SODIUM CHLOR 0.9% 1000 ML INJ 1,000 ML IV SCH ×2 (10:45→19:00)
[2017-06-22] MEDS: HYDROCHLOROTHIAZIDE 12.5 MG CAP PO SCH ×2 (10:45→21:00)
[2017-06-22] MEDS ORDERED: DILTIAZEM-CD 300 MG CAP ER PO SCH (11:00)
--- NOTE | 2017-06-22 11:31 | HHI.HP ---
[facility] Jaime Noonan MD Admission Diagnosis afib with rvr Diagnoses: (1) Atrial fibrillation with RVR Diagnosis: Principal Chief Complaint: Fast heart rate Travel History International Travel<30 Days: No Contact w/Intl Traveler <30 Da: No Traveled to Known Affected Are: No History of Present Illness This is a 82-year-old female with known history of atrial fibrillation status post cardiac ablation 2, gastroesophageal reflux who presented to the hospital because of fast heart rate. Patient was in her normal state of health and undergoing outpatient workup with her jacquard loom card changer Dr. Tyler. She does have an appointment with Dr. Celaya on Friday for evaluation to have cardiac ablation performed. Patient states that she was sitting down knitting last night and her heart rate was 48-52. She is getting ready for bed and her heart rate went up to 120. She states that this happens intermittently that is why she is undergoing outpatient follow-up for possible ablation and permanent pacemaker placement. Because her heart rate was elevated she came to the hospital with anticipation of being evaluated by jacquard loom card changer and possibly moving forward with the cardiac ablation and permanent pacemaker during this hospitalization. Patient denied any lightheadedness, dizziness, blurred vision , chest pain, shortness of breath, she indicates that she has had increased lower extremity edema. Patient was started on Cardizem IV in the emergency department and recommended admission for further evaluation and management. Review of Systems Cardiovascular: COMPLAINS OF: Palpitations Except as stated in HPI: all other systems reviewed are Neg Past Family Social History Past Medical History Atrial fibrillation Gastroesophageal reflux Past Surgical History Cardiac ablation 2 Hysterectomy Deviated septum repair Cataract surgery Yaritza kaufman Reported Medications Reported Meds & Active Scripts Active Diltiazem CD 24 HR 240 Mg Caper 240 Mg PO DAILY Reported Hydrochlorothiazide 12.5 Mg Cap 12.5 Mg PO BID Simvastatin 80 Mg Tab 80 Mg PO HS Prolia Inj (Denosumab) 60 Mg/Ml Inj 60 Mg SQ Q180D Protonix (Pantoprazole Sodium) 40 Mg Tab 40 Mg PO DAILY Xarelto (Rivaroxaban) 15 Mg Tab 15 Mg PO DAILY Allergies: Coded Allergies: sulfamethoxazole (Unverified Allergy, Severe, Rash, 05/01/17) trimethoprim (Unverified Allergy, Severe, Rash, 05/01/17) Family History Reviewed and significant for father in his 70s from throat cancer, mother in her 70s from brain cancer Social History Patient states that he drinks beer occasionally. Denies any tobacco or illicit drug use Physical Exam Vital Signs Vital Signs Date Time Temp Pulse Resp B/P (MAP) Pulse Ox O2 Delivery O2 Flow Rate FiO2 06/22/17 08:48 69 16 98/62 (74) 97 Room Air 06/22/17 08:25 75 17 103/54 (70) 96 Room Air 06/22/17 07:25 68 16 101/61 (74) 97 Room Air 06/22/17 07:08 72 16 97/64 (75) 97 Room Air 06/22/17 07:08 Room Air 06/22/17 06:26 52 104/62 (76) 06/22/17 06:12 57 98/57 (71) 06/22/17 05:54 60 104/61 (75) 06/22/17 05:36 60 18 102/57 (72) 06/22/17 05:00 71 16 101/57 (72) 95 Room Air 06/22/17 04:45 80 16 98/59 (72) 06/22/17 04:30 67 16 95/58 (70) 06/22/17 04:15 64 16 107/61 (76) 06/22/17 04:00 65 18 97/60 (72) 95 Room Air 06/22/17 03:45 75 16 105/72 (83) 06/22/17 03:30 73 16 85/59 (68) 06/22/17 03:15 61 18 95/55 (68) 06/22/17 03:00 66 16 104/60 (75) 06/22/17 02:45 114 16 93/71 (78) 06/22/17 02:13 91 16 111/73 (86) 96 Room Air 06/22/17 02:13 91 16 96 Room Air 06/22/17 01:30 110 18 100/69 (79) 96 Room Air 06/22/17 01:15 90 18 115/67 (83) 98 Room Air 06/22/17 01:00 122 18 108/ 94 Room Air 06/22/17 00:45 127 18 126/76 (93) 96 Room Air 06/22/17 00:30 118 18 111/79 (90) 96 Room Air 06/22/17 00:15 112 18 118/78 (91) 97 Room Air 06/22/17 00:00 116 18 119/76 (90) 97 Room Air 06/21/17 23:51 115 141/81 06/21/17 23:45 119 18 141/85 (103) 96 Room Air 06/21/17 23:30 116 18 119/78 (92) 95 Room Air 06/21/17 23:02 112 16 142/82 (102) 97 Room Air 06/21/17 22:29 114 16 133/80 (97) 95 Room Air 06/21/17 21:57 16 96 Room Air 06/21/17 21:50 95 Room Air 06/21/17 21:43 97.8 119 18 146/68 (94) 96 Physical Exam GENERAL: Well-developed, well-nourished, in no acute distress. alert and orientated HEENT: Head is normocephalic without any lesions or masses noted. Facial features are symmetric. Eyes: Pupils equal round reactive to light. Extraocular muscles are intact. Conjunctivae were clear. Oropharyngeal: Pharynx without any erythema edema. Tongue is midline without deviation. Buccal mucosa is moist without any masses or lesions NECK: Supple without any masses. Trachea midline no deviation. No JVD, no bruits are appreciated CARDIAC: Irregular rhythm, irregular rate S1/S2 are heard. No murmurs gallops or rubs. LUNGS: Clear to auscultation bilaterally. No wheeze, rhonchi or rales. No use of accessory muscles on inspiration or expiration. ABDOMEN: Soft, nontender. Nondistended. Bowel sounds heard in all 4 quadrants. No organomegaly or masses. Negative rebound, negative guarding EXTREMITIES: 2+ pretibial edema, pulses are equal bilaterally. No cyanosis or clubbing NEUROLOGY: Mood and affect appear appropriate. Cranial nerves II through XII grossly intact. Muscle strength 5/5 in upper and lower extremities bilaterally. Deep tendon reflexes are 2+ in upper and lower extremities bilaterally. Laboratory Laboratory Tests Test 06/21/17 22:10 06/22/17 02:06 06/22/17 06:10 06/22/17 08:35 White Blood Count 7.0 6.9 Red Blood Count 4.74 4.47 Hemoglobin 15.3 13.8 Hematocrit 44.3 42.0 Mean Corpuscular Volume 93.4 94.0 Mean Corpuscular Hemoglobin 32.4 30.8 Mean Corpuscular Hemoglobin Concent 34.7 32.8 Red Cell Distribution Width 13.2 13.2 Platelet Count 302 226 Mean Platelet Volume 8.2 8.1 Neutrophils (%) (Auto) 46.3 56.9 Lymphocytes (%) (Auto) 38.9 28.7 Monocytes (%) (Auto) 9.5 9.7 Eosinophils (%) (Auto) 2.7 2.7 Basophils (%) (Auto) 2.6 2.0 Neutrophils # (Auto) 3.2 3.9 Lymphocytes # (Auto) 2.7 2.0 Monocytes # (Auto) 0.7 0.7 Eosinophils # (Auto) 0.2 0.2 Basophils # (Auto) 0.2 0.1 CBC Comment DIFF FINAL DIFF FINAL Differential Comment Prothrombin Time 11.5 Prothromb Time International Ratio 1.1 Activated Partial Thromboplast Time 30.3 Blood Urea Nitrogen 17 13 Creatinine 1.20 0.81 Random Glucose 115 99 Calcium Level 9.4 8.3 Magnesium Level 2.3 Sodium Level 139 143 Potassium Level 3.8 3.7 Chloride Level 105 112 Carbon Dioxide Level 28.9 26.6 Anion Gap 5 4 Estimat Glomerular Filtration Rate 43 68 Lipase 129 Troponin I LESS THAN 0.02 LESS THAN 0.02 Total Protein 5.7 Albumin 3.1 Alkaline Phosphatase 60 Aspartate Amino Transf (AST/SGOT) 15 Alanine Aminotransferase (ALT/SGPT) 18 Total Bilirubin 0.4 Result Diagram: 06/22/17 0610 06/22/1710 Imaging Last Impressions Chest X-Ray 06/21/172207 Signed Impressions: Service Date/Time: Wednesday, June 21, 2017 22:10 - CONCLUSION: No acute disease. MD Yayo Godwini VTE Risk Assessment Lai VTE Risk Assessment: Mod/High Risk (score >= 2) Josiasrini Risk Assessment Model Point Value = 1 Point Value = 2 Point Value = 3 Point Value = 5 Age 41-60 Minor surgery BMI > 25 kg/m2 Swollen legs Varicose veins or History of unexplained or recurrent spontaneous Oral contraceptives or hormone replacement Sepsis (< 1 month) Serious lung disease, including pneumonia (< 1 month) Abnormal pulmonary function Acute myocardial infarction Congestive heart failure (< 1 month) History of inflammatory bowel disease Medical patient at bed rest Age 61-74 Arthroscopic surgery Major open surgery (> 45 min) Laparoscopic surgery (> 45 min) Malignancy Confined to bed (> 72 hours) Immobilizing plaster cast Central venous access Age >= 75 History of VTE Family history of VTE Factor V Leiden Prothrombin [id number] Lupus anticoagulant Anticardiolipin antibodies Elevated serum homocysteine Heparin-induced thrombocytopenia Other congenital or acquired thrombophilia Stroke (< 1 month) Elective arthroplasty Hip, pelvis, or leg fracture Acute spinal cord injury (< 1 month) Prophylaxis Regimen Total Risk Factor Score Risk Level Prophylaxis Regimen 0-1 Low Early ambulation 2 Moderate Order ONE of the following: *Sequential Compression Device (SCD) *Heparin 5000 units SQ BID 3-4 Higher Order ONE of the following medications: *Heparin 5000 units SQ TID *Enoxaparin/Lovenox 40 mg SQ daily (WT < 150 kg, CrCl > 30 mL/min) *Enoxaparin/Lovenox 30 mg SQ daily (WT < 150 kg, CrCl > 10-29 mL/min) *Enoxaparin/Lovenox 30 mg SQ BID (WT < 150 kg, CrCl > 30 mL/min) AND/OR *Sequential Compression Device (SCD) 5 or more Highest Order ONE of the following medications: *Heparin 5000 units SQ TID (Preferred with Epidurals) *Enoxaparin/Lovenox 40 mg SQ daily (WT < 150 kg, CrCl > 30 mL/min) *Enoxaparin/Lovenox 30 mg SQ daily (WT < 150 kg, CrCl > 10-29 mL/min) *Enoxaparin/Lovenox 30 mg SQ BID (WT < 150 kg, CrCl > 30 mL/min) AND *Sequential Compression Device (SCD) Assessment and Plan Assessment and Plan Atrial fibrillation with RVR -Patient is pursuing outpatient workup at this time with Dr. Celaya for possible cardiac ablation and permanent pacemaker placement -Patient was on Cardizem IV, that was discontinued due to bradycardia however RVR started again and patient now back on Cardizem IV -Resume patient's home medication but at increased dose Cardizem CD 300 mg daily -Discontinue Cardizem IV when heart rate less than 100, after p.o. Cardizem given -Cardiology consulted, did discuss with Dr. Serrano who contacted Dr. Celaya, who plans on performing possible ablation and pacemaker placement during this hospitalization. Requesting patient be transferred to [facility] for continued care DVT prevention -Patient is on Xarelto Physician Certification 2 Midnight Certification Type: Admission for Inpatient Services Order for Inpatient Services The services are ordered in accordance with Medicare regulations or non- Medicare payer requirements, as applicable. In the case of services not specified as inpatient-only, they are appropriately provided as inpatient services in accordance with the 2-midnight benchmark. Estimated LOS (days): 3 days is the estimated time the patient will need to remain in the hospital, assuming treatment plan goals are met and no additional complications. Post-Hospital Plan: Not yet determined Adam Elizabeth Jun 22, 2017 11:31
[2017-06-22] MEDS: ATORVASTATIN 40 MG TAB PO SCH (21:35)
[2017-06-23] VITALS (29 sets, daily range): BP systolic 95–137; BP diastolic 58–90; PULSE 38–142; RESP 16–18; TEMP 97.7–99; O2SAT 96–99
[2017-06-23] MEDS: SODIUM CHLOR 0.9% 1000 ML INJ 1,000 ML IV SCH ×2 (02:12→13:30)
--- NOTE | 2017-06-23 08:41 | MB ---
cc: Marli Serranoaddie Tari HERNANDEZ DATE: 06/22/2017 REASON FOR CONSULTATION: Atrial fibrillation with rapid ventricular response. HISTORY OF PRESENT ILLNESS: Fatemeh Kwan is a pleasant 82-year-old female who sees my partner, Dr. Tyler, in the office and presented to [facility] due to a fast heart rate. She was previously here around 1-2 months ago and had a similar type presentation with heart rates in the 130s. She did have an elevated troponin at that time and underwent stress testing, which showed no ischemia and an overall low risk stress test. Since that time, she has been seen in the office by Dr. Tyler and set up to see Dr. Vanegas on 06/25/2017. She was sitting at home knitting the night before and she noticed that her heart rate within mid-40s and she got up and got ready for bed and she noticed her heart rate was above 120. Her heart rate continued to be elevated in the 120s-130s and so she came into the hospital. She denies chest pain, shortness of breath with these episodes. She was given IV Cardizem and started on a Cardizem drip. She did receive Cardizem p.o. with an attempt to take her off the Cardizem drip, but her heart rate became elevated once again. I was called to see her in consultation and overall I believe that she needs to be evaluated for either repeat ablation or possible AV alvarado ablation, with permanent pacemaker placement. Because of this, I had her transferred from [place] to [facility]. PAST MEDICAL HISTORY: 1. Atrial fibrillation/atrial flutter. 2. Hypertension. 3. GERD. PAST SURGICAL HISTORY: 1. Atrial flutter ablation (05/2013). 2. Atrial fibrillation ablation (08/2013). 3. Atrial fibrillation ablation (06/2014). 4. Hysterectomy. ALLERGIES: BACTRIM. MEDICATIONS: 1. Xarelto 15 mg daily. 2. Zocor 80 mg every night. 3. Cardizem-CD 240 mg daily. 4. Hydrochlorothiazide 12.5 mg b.i.d. 5. Protonix 40 mg daily. 6. Prolia 60 mg subcutaneously every 180 days. FAMILY HISTORY: Denies premature coronary artery disease or sudden cardiac within the family. SOCIAL HISTORY: The patient is a , after 62 years of marriage. She denies tobacco, alcohol or drug abuse. REVIEW OF SYSTEMS: Fourteen systems were reviewed including osteopathic, pertinent positives and negatives above, otherwise negative. PHYSICAL EXAMINATION: VITAL SIGNS: Temperature 97.8, heart rate 122, blood pressure 104/61, respirations 17, pulse oximetry 96% on room air. GENERAL: The patient appears well, in no acute distress, alert, awake and oriented x 3. HEENT: Extraocular muscles intact. Mucous membranes moist. NECK: Supple. No JVD at 45 degrees. No carotid bruits heard bilaterally. Carotid upstroke is brisk in nature. HEART: Irregularly irregular and tachycardic. No murmurs, gallops or rubs noted. LUNGS: Clear to auscultation bilaterally. No wheezes, rales or rhonchi. ABDOMEN: Soft, nontender, nondistended, no organomegaly noted. EXTREMITIES: Show no clubbing, cyanosis or edema. Femoral and distal pulses intact bilaterally. NEUROLOGIC: No focal deficits. SKIN: Warm, dry and intact. OSTEOPATHICALLY: No kyphoscoliosis, lordosis or paraspinal tender points. LABORATORY DATA: Hemoglobin 13.8, hematocrit 42.0, platelets 226. Potassium 3.7, BUN 13, creatinine 0.81. Troponin negative x 3. ELECTROCARDIOGRAM (06/22/2017 AT 10:11): Supraventricular tachycardia, possible atrial flutter with 2:1 block, right bundle branch block, right axis deviation. IMPRESSION: 1. Atrial fibrillation/flutter with rapid ventricular response, with difficulty controlling. 2. Anticoagulation with Xarelto. 3. History of ablation x 3, as above. 4. Hypertension. RECOMMENDATIONS 1. Ms. Kwan has been transferred to [facility] and she will be evaluated by Dr. Vanegas from [facility]. 2. For now, she will continue on the Cardizem drip, and we will plan on holding p.o. Cardizem until further evaluation. 3. Consideration will be made for ablation versus possible AV alvarado ablation with pacemaker per Dr. Vanegas. For now, she will get a dose of Xarelto tonight and will be held after that depending on recommendations per Dr. Vanegas. 4. Further recommendations will be made based on the hospital course. Thank you for allowing me to see Fatemeh Kwan. If there are any questions, please do not hesitate to call. DO HERO Ramos/PARKASH , 05:23 PM , 06:22 PM
[2017-06-23] MEDS: SODIUM CHLORIDE 0.9% FLUSH 10 ML FLUSH IV FLUSH SCH ×2 (09:00→21:00)
[2017-06-23] MEDS: HYDROCHLOROTHIAZIDE 12.5 MG CAP PO SCH ×2 (09:00→21:37)
[2017-06-23] MEDS: DOCUSATE SODIUM 50 MG/SENNA 8.6 MG TAB PO SCH ×2 (09:30→21:00)
[2017-06-23] MEDS: PANTOPRAZOLE SOD 40 MG DELAYED RELEASE TAB PO SCH (09:30)
[2017-06-23] MEDS ORDERED: DIGOXIN 0.5 MG/2 ML VIAL IV PUSH ONE ×2 (10:30→22:30)
--- NOTE | 2017-06-23 10:57 | MB ---
cc: Orquidea Celaya MD DATE: 06/23/2017 REASON FOR CONSULTATION: Atrial fibrillation, biventricular response. HISTORY OF PRESENT ILLNESS: Mrs. Kwan is an 82-year-old female with history of atrial fibrillation ablation in 07/13/2013, followed by Dr. Tyler, admitted to the emergency room due to atrial fibrillation and biventricular response. During hospitalization, IV Cardizem was initiated. Heart rate is still high. I was consulted for further evaluation and management. The chart was reviewed. The patient was evaluated. ALLERGIES: SULFAMETHOXAZOLE/TRIMETHOPRIM. FAMILY HISTORY: Noncontributory to her current medical condition. MEDICATIONS: The patient is currently on Cardizem IV. She is on acetaminophen, Lipitor 40 mg a day, hydrochlorothiazide 12.5 mg twice a day, Zofran. She is on Xarelto 15 mg a day. She is on Protonix 40 mg a day. REVIEW OF SYSTEMS: Currently, she referred no chest pain, palpitations or shortness of breath, no vomiting, no fever. PHYSICAL EXAMINATION: GENERAL: Alert, fully oriented. VITAL SIGNS: Blood pressure 125/93, currently at bedside it was 91/62, pulse 130, respiratory rate 18. LUNGS: Ventilated. CARDIOVASCULAR: S1, S2, tachycardic, irregular. ABDOMEN: Soft. No mass. EXTREMITIES: No edema. ELECTROCARDIOGRAM: Electrocardiogram from hospitalization indicated atrial fibrillation with biventricular response, right bundle branch block, right axis, diffuse ST changes, poor R-wave progression. LABORATORY DATA: Hemoglobin 13.8, white blood cell 6.9. Potassium 3.7, creatinine 0.81. Troponin less than 0.02. INR 1.1. ASSESSMENT AND RECOMMENDATIONS: Mrs. Kwan has atrial fibrillation with biventricular response. Last ablation was around 3-4 years ago. Heart rate very difficult to control. It is possible atrial fibrillation, left atrial tachyarrhythmia. At this point, I am going to try weight control. If that cannot be achieved, then I will proceed with electrophysiology study and ablation. The risks, the nature and the benefits of the procedure are clearly stated to her. Risks include pneumothorax, cardiac perforation, stroke and even . She understood and agreed to proceed. The case was extensively discussed with Mrs. Kwan. I will closely monitor her during hospitalization. MD TANYA Vilchis , 10:24 AM , 10:56 AM
[2017-06-23] MEDS: DILTIAZEM HCL 60 MG TAB PO SCH ×2 (11:02→18:02)
--- NOTE | 2017-06-23 11:16 | HHI.PR ---
Subjective Remarks Patient was evaluated around 9 AM this morning. She was eating breakfast. She denied any chest pain, shortness of breath, palpitation, nausea or vomiting. Heart rate on telemetry was 145 however patient states that she does not even feel it. Discussed with RN at bedside and she notified me that patient was on the max dose for the Cardizem drip I did notify Dr. Serrano of this and he was on his way to the hospital to evaluate her Objective Vitals Vital Signs Date Time Temp Pulse Resp B/P (MAP) Pulse Ox O2 Delivery O2 Flow Rate FiO2 06/23/17 07:15 98.0 139 18 111/69 (83) 06/23/17 07:14 137 125/83 06/23/17 06:30 130 112/75 06/23/17 06:00 104 06/23/17 05:00 90 06/23/17 04:13 80 18 105/58 (74) 96 06/23/17 04:00 84 06/23/17 03:00 58 06/23/17 02:00 44 06/23/17 01:00 40 06/23/17 00:00 38 06/22/17 23:50 42 16 88/46 (60) 97 06/22/17 23:00 45 06/22/17 22:00 40 06/22/17 21:00 42 06/22/17 20:30 98.7 45 16 96/53 (67) 97 06/22/17 20:00 40 06/22/17 19:00 49 06/22/17 18:00 72 06/22/17 17:00 100 06/22/17 16:44 100 06/22/17 16:44 97.6 117 18 119/80 (93) 98 06/22/17 14:59 122 17 104/61 (75) 06/22/17 14:35 126 16 110/71 (84) 96 Room Air 06/22/17 14:04 130 16 114/77 (89) 97 Room Air 06/22/17 13:40 120 17 110/70 (83) 99 Room Air 06/22/17 13:10 130 16 114/74 (87) 96 Room Air 06/22/17 12:50 107 16 94/66 (75) 06/22/17 12:15 121 17 96/68 (77) 97 Room Air 06/22/17 11:46 Room Air 06/22/17 11:30 106 06/22/17 11:24 109 16 120/61 (80) 98 Room Air I/O 06/22/17 06/22/17 06/22/17 06/23/17 06/23/17 06/23/17 07:00 15:00 23:00 07:00 15:00 23:00 Intake Total 1240 ml Output Total 600 ml 600 ml 600 ml Balance -600 ml -600 ml 640 ml Intake Oral 240 ml IV Total 1000 ml Output Urine Total 600 ml 600 ml 600 ml # Voids 4 # Bowel Movements 0 Result Diagram: 06/22/17 0610 06/22/17 0610 Imaging Last Impressions Chest X-Ray 06/21/172207 Signed Impressions: Service Date/Time: Friday, June 21, 2017 22:10 - CONCLUSION: No acute disease. Mehul Moreno MD Objective Remarks GENERAL: Elderly female eating breakfast. CARDIAC: Irregular rhythm, irregular rate heart rate in the 145 on telemetry LUNGS: Clear to auscultation bilaterally. No wheeze ABDOMEN: Soft, nontender. Nondistended. Bowel sounds heard in all 4 quadrants. EXTREMITIES: 1+ pretibial edema NEUROLOGY: Mood and affect appear appropriate, speech normal, answers questions appropriately A/P Problem List: (1) Atrial fibrillation with RVR ICD Code: I48.91 - Unspecified atrial fibrillation Status: Acute Assessment and Plan Atrial fibrillation with RVR -Patient is pursuing outpatient workup at this time with Dr. Celaya for possible cardiac ablation and permanent pacemaker placement. He has been consulted. -Patient was on Cardizem IV, that was discontinued due to bradycardia however RVR started again and patient now back on Cardizem IV. Dr. Serrano was notified that patient's heart rate was in the 140's and had maximize the dose on the Cardizem drip. He was on his way to evaluate the patient. Currently she is asymptomatic and stable. -Resume patient's home medication but at increased dose Cardizem CD 300 mg daily -Discontinue Cardizem IV when heart rate less than 100, after p.o. Cardizem given -Cardiology,Dr. Serrano following and he consulted Dr. Celaya, who plans on performing possible ablation and pacemaker placement during this hospitalization. DVT prevention -Patient is on Xarelto Discharge Planning Awaiting recommendations from cardiology Antoinette Jacobson MD Jun 23, 2017 11:16
--- NOTE | 2017-06-23 12:36 | PD.CARD.PN ---
Subjective Subjective Remarks Afib with RVR this morning, now controlled Patient asymptomatic Objective Medications Current Medications Medications (Trade) Dose Ordered Sig/Moshe Route Start Time Stop Time Status Last Admin (NS Flush) 2 ml UNSCH PRN IVF 06/21/17 22:15 Sodium Chloride 1,000 ml @ 100 mls/hr Q10H IV 06/21/17 22:50 06/23/17 02:12 (NS Flush) 2 ml UNSCH PRN IV FLUSH 06/21/17 23:00 06/21/17 23:50 (NS Flush) 2 ml BID IV FLUSH 06/22/17 09:00 (Zofran Inj) 4 mg Q6H PRN IVP 06/21/17 23:00 (Tylenol) 650 mg Q6H PRN PO 06/21/17 23:00 (Ballard 5-325 Mg) 1 tab Q4H PRN PO 06/21/17 23:00 (Ballard 10-325 Mg) 1 tab Q4H PRN PO 06/21/17 23:00 (Debora-Colace) 1 tab BID PO 06/22/17 09:00 06/23/17 09:30 (Milk Of Magnesia Liq) 30 ml Q12H PRN PO 06/21/17 23:00 (Senokot) 17.2 mg Q12H PRN PO 06/21/17 23:00 (Dulcolax Supp) 10 mg DAILY PRN RECTAL 06/21/17 23:00 (Lactulose Liq) 30 ml DAILY PRN PO 06/21/17 23:00 (Protonix) 40 mg DAILY PO 06/22/17 09:00 06/23/17 09:30 (Xarelto) 15 mg DAILY PO 06/22/17 09:00 Future Hold 06/22/17 09:25 (Lipitor) 40 mg HS PO 06/22/17 21:00 06/22/17 21:35 (Microzide) 12.5 mg BID PO 06/22/17 11:00 06/22/17 10:45 (Cardizem) 30 mg Q6HR PO 06/23/17 19:30 (Cardizem) 60 mg Q6HR PO 06/23/17 12:00 06/23/17 11:02 Vital Signs / I&O Vital Signs Date Time Temp Pulse Resp B/P (MAP) Pulse Ox O2 Delivery O2 Flow Rate FiO2 06/23/17 07:15 98.0 139 18 111/69 (83) 06/23/17 07:14 137 125/83 06/23/17 06:30 130 112/75 06/23/17 06:00 104 06/23/17 05:00 90 06/23/17 04:13 80 18 105/58 (74) 96 06/23/17 04:00 84 06/23/17 03:00 58 06/23/17 02:00 44 06/23/17 01:00 40 06/23/17 00:00 38 06/22/17 23:50 42 16 88/46 (60) 97 06/22/17 23:00 45 06/22/17 22:00 40 06/22/17 21:00 42 06/22/17 20:30 98.7 45 16 96/53 (67) 97 06/22/17 20:00 40 06/22/17 19:00 49 06/22/17 18:00 72 06/22/17 17:00 100 06/22/17 16:44 100 06/22/17 16:44 97.6 117 18 119/80 (93) 98 06/22/17 14:59 122 17 104/61 (75) 06/22/17 14:35 126 16 110/71 (84) 96 Room Air 06/22/17 14:04 130 16 114/77 (89) 97 Room Air 06/22/17 13:40 120 17 110/70 (83) 99 Room Air 06/22/17 13:10 130 16 114/74 (87) 96 Room Air 06/22/17 12:50 107 16 94/66 (75) I/O 06/22/17 06/22/17 06/22/17 06/23/17 06/23/17 06/23/17 07:00 15:00 23:00 07:00 15:00 23:00 Intake Total 1240 ml Output Total 600 ml 600 ml 600 ml Balance -600 ml -600 ml 640 ml Intake Oral 240 ml IV Total 1000 ml Output Urine Total 600 ml 600 ml 600 ml # Voids 4 # Bowel Movements 0 Physical Exam GENERAL: NAD, AAOx3 SKIN: Warm and dry. HEAD: Atraumatic. Normocephalic. EYES: Pupils equal and round. No scleral icterus. No injection or drainage. ENT: No nasal bleeding or discharge. Mucous membranes pink and moist. NECK: Trachea midline. No JVD. CARDIOVASCULAR: Regular rate and rhythm. RESPIRATORY: No accessory muscle use. Clear to auscultation. Breath sounds equal bilaterally. GASTROINTESTINAL: Abdomen soft, non-tender, nondistended. Hepatic and splenic margins not palpable. MUSCULOSKELETAL: Extremities without clubbing, cyanosis, or edema. No obvious deformities. NEUROLOGICAL: Awake and alert. No obvious cranial nerve deficits. Motor grossly within normal limits. Five out of 5 muscle strength in the arms and legs. Normal speech. PSYCHIATRIC: Appropriate mood and affect; insight and judgment normal. Laboratory Laboratory Tests Test 06/22/17 13:50 Troponin I LESS THAN 0.02 NG/ML Assessment and Plan Problem List: (1) Atrial fibrillation with RVR ICD Codes: I48.91 - Unspecified atrial fibrillation Status: Acute (2) Atrial flutter ICD Codes: I48.92 - Unspecified atrial flutter Status: Acute (3) HTN (hypertension) ICD Codes: I10 - Essential (primary) hypertension Status: Acute (4) Hyperlipidemia ICD Codes: E78.5 - Hyperlipidemia Status: Acute Assessment and Plan 1) Afib with RVR Hx of multiple ablations Dr. Celaya to see for further management Xarelto held for anticipated ablation 2) Will defer to Dr. Celaya for further management Will see PRN, call with questions F/U with Dr. Tyler on discharge Chase Serrano DO Jun 23, 2017 12:36
[2017-06-23] MEDS: DILTIAZEM HCL 30 MG TAB PO SCH (19:30)
--- NOTE | 2017-06-23 21:29 | EKG ---
Date Performed: 06/22/2017 Time Performed: 10:11:04 PTAGE: 82 years EKG: SINUS TACHYCARDIA MARKED RIGHT AXIS DEVIATION RIGHT BUNDLE BRANCH BLOCK POSSIBLE SEPTAL CHELSIE CARDIAL INFARCTION ABNORMAL ECG NO PREVIOUS TRACING DOCTOR: Lalo De La Cruz Interpretating Date/Time 06/23/2017 21:28:38
[2017-06-23] MEDS: ATORVASTATIN 40 MG TAB PO SCH (21:37)
[2017-06-24] VITALS (24 sets, daily range): BP systolic 94–130; BP diastolic 55–86; PULSE 40–147; RESP 16–20; TEMP 97.1–98.7; O2SAT 96–98
[2017-06-24] MEDS: DILTIAZEM HCL 30 MG TAB PO SCH ×3 (00:02→12:00)
[2017-06-24] MEDS: DILTIAZEM HCL 60 MG TAB PO SCH ×3 (00:02→12:00)
[2017-06-24] MEDS: SODIUM CHLOR 0.9% 1000 ML INJ 1,000 ML IV SCH ×2 (02:30→20:53)
[2017-06-24] MEDS: DOCUSATE SODIUM 50 MG/SENNA 8.6 MG TAB PO SCH ×2 (09:00→21:00)
[2017-06-24] MEDS: HYDROCHLOROTHIAZIDE 12.5 MG CAP PO SCH ×2 (09:00→21:14)
[2017-06-24] MEDS: PANTOPRAZOLE SOD 40 MG DELAYED RELEASE TAB PO SCH (09:57)
[2017-06-24] MEDS: SODIUM CHLORIDE 0.9% FLUSH 10 ML FLUSH IV FLUSH SCH ×2 (09:57→20:58)
--- NOTE | 2017-06-24 10:53 | HHI.PR ---
Subjective Remarks Patient denies any chest pain, shortness of breath, nausea or vomiting, palpitations or lightheadedness or dizziness. Objective Vitals Vital Signs Date Time Temp Pulse Resp B/P (MAP) Pulse Ox O2 Delivery O2 Flow Rate FiO2 06/24/17 08:08 147 18 95/70 (78) 97 06/24/17 06:00 114 06/24/17 05:00 67 06/24/17 04:00 88 06/24/17 03:30 98.1 70 16 119/66 (83) 96 06/24/17 03:00 67 06/24/17 02:00 137 06/24/17 01:00 104 06/24/17 00:00 132 06/24/17 00:00 98.0 132 16 118/86 (97) 96 06/23/17 23:00 130 06/23/17 23:00 131 137/90 (106) 06/23/17 22:43 134 124/89 (101) 06/23/17 22:00 132 06/23/17 21:00 106 06/23/17 20:00 136 06/23/17 20:00 97.9 138 16 114/74 (87) 98 06/23/17 19:00 100 06/23/17 18:00 100 06/23/17 17:00 90 06/23/17 16:00 68 06/23/17 15:30 99.0 84 18 103/58 (73) 99 06/23/17 15:00 91 06/23/17 14:00 66 06/23/17 13:00 90 06/23/17 12:00 66 06/23/17 11:30 97.7 76 18 95/58 (70) 96 06/23/17 11:00 91 I/O 06/23/17 06/23/17 06/23/17 06/24/17 06/24/17 06/24/17 07:00 15:00 23:00 07:00 15:00 23:00 Intake Total 1240 ml 1140 ml 240 ml Output Total 600 ml 1040 ml 1775 ml Balance 640 ml 100 ml -1535 ml Intake Oral 240 ml 1140 ml 240 ml IV Total 1000 ml Output Urine Total 600 ml 1040 ml 1775 ml # Bowel Movements 0 2 0 Result Diagram: 06/22/17 0606/22/17 06 Imaging Last Impressions Chest X-Ray 06/21/178 Signed Impressions: Service Date/Time: Wednesday, June 21, 2017 22:10 - CONCLUSION: No acute disease. Mehul Moreno MD Objective Remarks GENERAL: Elderly female laying in bed CARDIAC: Irregular rhythm, irregular rate LUNGS: Clear to auscultation bilaterally. No wheeze ABDOMEN: Soft, nontender. Nondistended. Bowel sounds heard in all 4 quadrants. EXTREMITIES: 1+ pretibial edema NEUROLOGY: Mood and affect appear appropriate, speech normal, answers questions appropriately A/P Problem List: (1) Atrial fibrillation with RVR ICD Code: I48.91 - Unspecified atrial fibrillation Status: Acute Assessment and Plan Atrial fibrillation with RVR -Patient was pursuing outpatient workup at this time with Dr. Celaya for possible cardiac ablation and permanent pacemaker placement. I did discuss case with Dr. Celaya and patient is scheduled for ablation today. -Status post Cardizem drip. Currently on p.o. Cardizem. This morning heart rate was in the 140s after receiving her Cardizem p.o. it did go down to the 80s. Monitor closely and if her heart rate goes back up will discuss with Dr. Celaya for possible amiodarone drip . Currently she is asymptomatic and stable. -Patient is scheduled for ablation this morning DVT prevention -Patient is on Xarelto Discharge Planning Scheduled for ablation this morning Antoinette Jacobson MD June 24, 2017 10:53
[2017-06-24] MEDS ORDERED: DEXAMETHASONE SOD PHOS 4 MG/ML VIAL IV ONE (12:00)
[2017-06-24] MEDS ORDERED: ROCURONIUM INJ 50 MG/5 ML SYRINGE IV PUSH ONE (12:00)
[2017-06-24] MEDS ORDERED: PROPOFOL 200 MG/20 ML AMP IV ONE (12:00)
[2017-06-24] MEDS ORDERED: ONDANSETRON HCL 4 MG/2 ML VIAL IV ONE (12:00)
[2017-06-24] MEDS ORDERED: GLYCOPYRROLATE 1 MG/5 ML SYRINGE IV PUSH ONE (12:00)
[2017-06-24] MEDS ORDERED: SODIUM CHLORIDE 0.9% 20 ML VIAL IV ONE (12:00)
[2017-06-24] MEDS ORDERED: NEOSTIGMINE 5 MG/5 ML SYRINGE IV PUSH ONE (12:00)
[2017-06-24] MEDS ORDERED: PHENYLEPH/NS 1000 MCG/10 ML SYR IV ONE (12:00)
[2017-06-24] MEDS ORDERED: LIDOCAINE HCL 1% PF 5 ML SYRINGE OTHER ONE (12:00)
[2017-06-24] MEDS ORDERED: LIDOCAINE HCL 1% PF 30 ML VIAL ONE (17:50)
[2017-06-24] MEDS ORDERED: HEPARIN-NS/PF FLUSH BAG 2,000 ML IV FLUSH ONE (17:50)
[2017-06-24] MEDS ORDERED: LEVOFLOXACIN 500 MG PREMIX INJ 100 ML IV ONE ×2 (17:59→18:00)
[2017-06-24] MEDS ORDERED: HEPARIN SODIUM - IV 10,000 UNITS/10 ML VIAL ONE ×2 (18:03→19:07)
[2017-06-24] MEDS ORDERED: HEPARIN-D5W 25,000 U/250 ML 250 ML ONE (18:04)
[2017-06-24] MEDS ORDERED: PROTAMINE SULFATE 50 MG/5 ML VIAL ONE (19:35)
[2017-06-24] MEDS ORDERED: ATROPINE SULFATE 1 MG/ML VIAL IV PUSH PRN (19:45)
[2017-06-24] MEDS ORDERED: ONDANSETRON HCL 4 MG/2 ML VIAL IV PUSH PRN (19:45)
[2017-06-24] MEDS ORDERED: LORazepam 2 MG/ML VIAL IV PUSH PRN (19:45)
[2017-06-24] MEDS ORDERED: LIDOCAINE HCL 1% 50 ML VIAL INFIL PRN (19:45)
[2017-06-24] MEDS ORDERED: SODIUM CHLOR 0.9% 250 ML INJ 250 ML IV PRN (19:45)
[2017-06-24] MEDS ORDERED: BACITRACIN OINT 0.9 GM PKT TOP ONE (19:45)
[2017-06-24] MEDS ORDERED: oxyCODONE/ACETAMINOPHEN 5 MG/325 MG TAB PO PRN ×2 (19:45)
--- NOTE | 2017-06-24 20:11 | CATHPROC ---
Patient Name: KEIKO CUELLAR Study #: [id number] Initial MD: Orquidea Celaya Date of : 1935 Study Date: 06/24/2017 Cardiac Catheterization Report 06/24/2017 8:11:22 PM Financial #: [id number] 1 of 10 Patient Name: KEIKO CUELLAR Study #: [id number] Initial MD: Orquidea Celaya Date of : 1935 Study Date: 06/24/2017 Entire Case Report Patient Information Patient Name KEIKO CUELLAR Date of 1935 Age 82 years Financial # [id number] Gender F AlternateID Lab Number 2 Room Number 253 Height (in) 61.0 Height (cm) 154.9 BSA 1.53 Weight (lbs) 122.1 Weight (kg) 55.5 Patient Address/Phone Number Home Address [facility] Home Phone Number [address] [facility] [address] Study Information Study Number Admission Scheduled Start Study Start [id number] Jun 22 2017 11:35AM 06/24/2017 Jun 24 2017 5:26PM [place] [facility] Electrophysiology Study Admit Source Facility Department Other [facility] - Manager Inside Physician and Clinical Staff Initial Orquidea Bennett Laundry Equipment Operator Elizabeth Milligan,RT(R) TECH2 Other Anesthesia, [employer]READ [employer] Recorder Kassandra Blanca,PATRIA Scrub Radhames Calvert,RT(R) Procedures Performed Procedure Location (Site) Vessel Name Ablation Procedure ICE CATHETER INSERT RA Atruim Equipment Time Vest Maker Description Size Mfg Part Number Used/Scraped NEEDLE, TRANSSEPTAL NRG 98 [id number] 17:29 SUPERIOR [employer]ICAL Used C1 *[id number] [employer]/ EP [id number] 17:29 KIT, TRANSDUCER / AFIB Used PACER *[id number] CATHETER, TACTICATH ABLAT BUNDLE 17:29 BUNDLE-ST. FAROOQ Used 65 BUNDLE *[id number] BUNDLE 06/24/2017 8:11:22 PM Financial #: [id number] 2 of 10 Patient Name: KEIKO CUELLAR Study #: [id number] Initial MD: Orquidea Celaya Date of : 1935 Study Date: 06/24/2017 04402-FGTLHT CATHETER, FR7 OPTIMA SPIRAL 17:29 BUNDLE-[employer]. FAROOQ FR7 *[id number]- Used BUNDLE BUNDLE [id number] 17:29 BUNDLE-ST. FAROOQ CATHETER, JSN, QUAD BUNDLE FR 5 *[id number]- Used BUNDLE [id number] 17:29 BUNDLE-ST. FAROOQ CATHETER, JSN, QUAD BUNDLE FR 5 *[id number]- Used BUNDLE 20826-BDHOLP SET, COOL POINT TUBING 17:29 BUNDLE-ST. FAROOQ *[id number]- Used BUNDLE BUNDLE SHEATH, FR8.5 STEERABLE SM 17:29 BUNDLE-ST. FAROOQ 71CM [id number] Used 71CM BUNDLE [id number] 19:04 CARDIVA MEDICAL VASCADE, FR5 CLOSURE SYSTEM FR 5 Used *[id number] 19:04 CARDIVA MEDICAL VASCADE, FR6 CLOSURE SYSTEM FR 6\\7 Used *[id number] 19:04 CARDIVA MEDICAL VASCADE, FR6 CLOSURE SYSTEM FR 6\\7 Used *[id number] 19:04 CARDIVA MEDICAL VASCADE, FR6 CLOSURE SYSTEM FR 6\\7 Used *[id number] 19:04 CARDIVA MEDICAL VASCADE, FR6 CLOSURE SYSTEM FR 6\\7 Used *[id number] COVER, TRANSDUCER CABLE 612-113 17:29 [employer] Used ACUNAV *[id number] 17:29 CORDIS/PACER SHEATH, FR10 EVANS 11CM FR 10 Used *[id number] 17:29 CORDIS/PACER SHEATH, FR9 EVANS 11CM FR 9 [id number] Used [id number] 17:29 MEDLINE IND[employer]RIES PACK, CCL CUSTOM * Used *[id number] 17:29 MEDLINE PACER GALLARDO, LIMB * 2530 *[id number] Used [id number] 17:29 [facility] MEDICAL SHEATH, FR4.5 PRELUDE 11CM FR 4.5 Used [id number] 18:44 [facility] MEDICAL SHEATH, FR5.5 PRELUDE 11CM FR 5 [id number] Used [id number] 17:29 NAMIC TUBING, HIGH PRESSURE 48" 48" Used *[id number] [id number] 17:29 NAMIC TUBING, HIGH PRESSURE 48" 48" Used *2574114 [id number] 17:29 CASTRO MEDICAL BLANKET,WARM AIR CCL * Used *4555853 [id number] 17:29 [facility] [employer] MEDICAL ELECTRODE KIT, LAURA X SURFACE * Used *4330002 882162 17:29 [facility] [employer] MEDICAL SHEATH, EPS, FR6 FAST CATH FR 6 Used *8594614 17:29 [facility] [employer] MEDICAL SHEATH, EPS, FR7 FAST CATH FR 7 089073 Used 009680 17:29 [facility] MEDICAL SHEATH, EPS, FR8 FAST CATH FR 8 Used *1131687 CATHETER, ACUNAV FR10 ICE [id number] 18:49 JOVAN FR 10 Used (JOVAN) *[id number] [facility] PAD, ELECTROSURGICAL 17:29 * [id number] *[id number] Used SURGICAL GROUNDING (BLUE) 06/24/2017 8:11:22 PM Financial #: [id number] Patient Name: KEIKO CUELLAR Study #: [id number] Initial MD: Orquidea Celaya Date of : 1935 Study Date: 06/24/2017 Insurance Information Insurance Payor Private Health Insurance Third Democrat Third Democrat Number [employer] [facility] History: Allergies Allergy Reaction Bactrim Rash sulfamethoxazole Rash trimethoprim Rash Labs Hgb (g/dl) Hct (%) RBC (MIL/MM3) WBC (l/cumm) Platelets (thousands) 11.60-17.00 35.00-51.00 4.00-5.90 4.00-11.00 150.00-450.00 13.0 42 4.4 6.9 226 Glucose (mg/dl) BUN (mg/dl) Creatinine (mg/dl) BUN:Creatinine (1:x) 74.00-106.00 7.00-18.00 0.50-1.30 10.00-20.00 99 13 0.8 16.3 Na (meq/l) K (meq/l) 136.00-145.00 3.50-5.10 143 3.7 INR (PTT:PT) 0.90-1.10 1.1 Medication Medication Total Dose (Bolus/Oral) Medication Total Dosage/Unit 1% XYLOCAINE 40 mL HEPARIN 66502 units PROTAMINE 40 mg 06/24/2017 8:11:22 PM Financial #: [id number] 4 of 10 Patient Name: KEIKO CUELLAR Study #: [id number] Initial MD: Orquidea Celaya Date of : 1935 Study Date: 06/24/2017 Medications (Bolus/Oral) Medication Time Given Dosage/Unit Administered By Reason 1% XYLOCAINE 06/24/2017 6:41:28 PM 20 mL Orquidea Celaya 20 mL 1% XYLOCAINE given in lab by Orquidea Celaya in Left Groin via Subcutaneous. 1% XYLOCAINE 06/24/2017 6:46:36 PM 20 mL Orquidea Celaya 20 mL 1% XYLOCAINE given in lab by Orquidea Celaya in Right Groin via Subcutaneous. HEPARIN 06/24/2017 6:51:35 PM 60517 units Anesthesia, THREAD WINDER [employer]OMAT[employer] As per physicians ve rbal order 59263 units HEPARIN given in lab by Anesthesia, THREAD W[employer]ER [employer] via Peripheral IV. Ordered by Orquidea Celaya. Severy son: As per physicians verbal order. HEPARIN 06/24/2017 7:08:30 PM 2000 units Anesthesia, THREAD WINDER [employer]OMATIC As per physicians ve rbal order 2000 units HEPARIN given in lab by Anesthesia, THREAD WINDER [employer]OM[employer] via Peripheral IV. Ordered by Orquidea Celaya. Reas on: As per physicians verbal order. PROTAMINE 06/24/2017 7:36:36 PM 40 mg Anesthesia, THREAD WINDER [employer]OMATIC As per physicians verb al order 40 mg PROTAMINE given in lab by Anesthesia, THREAD WINDER [employer]OMATIC via Peripheral IV. Ordered by Orquidea Celaya. Reason: As per physicians verbal order. Medication (Drip) Medication Time Given Dosage/Unit Concentration/Unit Diluent (ml) Solution HEPARIN DRIP 06/24/2017 7:10:00 PM 1000 units/hr 99839 units 250 D5W 1000 units/hr HEPARIN DRIP given in lab by Anesthesia, THREAD WINDER [employer] via Peripheral IV. Pump/Drip Flow = 10 ml /hr [place] [address] units in 250 ml. Ordered by Orquidea Celaya. Reason: As per physicians verbal order. ISUPREL 06/24/2017 7:24:10 PM 20 mcg/min 1 mg 250 NaCl .9 20 mcg/min ISUPREL given in lab by Anesthesia, THREAD WINDER [employer]OM[employer] via Peripheral IV. Pump/Drip Flow = 300 ml/hr usi ng NaCl .9 with a concentration of 1 mg in 250 ml. Ordered by Orquidea Celaya. Reason: As per physicians verbal order. 06/24/2017 8:11:22 PM Financial #: [id number] 5 of 10 Patient Name: KEIKO CUELLAR Study #: [id number] Initial MD: Orquidea Celaya Date of : 1935 Study Date: 06/24/2017 Initial Case Assessment Cardiovascular HR Rhythm NIBP Chest Pain 141 af 141/83 0 Edema Present Skin color Skin None Normal Warm Dry Circulatory - Right Pulses Dorsalis Pedis 1 Scale (0,1,2,3,4,d) Circulatory - Left Pulses Dorsalis Pedis 1 Scale (0,1,2,3,4,d) Circulatory - Lower Extremities Color Lower Right Color Lower Left Normal Normal Neurological State Oriented to time-place- Alert Moves all extremities person 06/24/2017 8:11:22 PM Financial #: [id number] 6 of 10 Patient Name: KEIKO CUELLAR Study #: [id number] Initial MD: Orquidea Celaya Date of : 1935 Study Date: 06/24/2017 Final Case Assessment Cardiovascular HR Rhythm NIBP 72 sr 110/70 Edema Present Skin color Skin None Normal Warm Dry Circulatory - Right Pulses Dorsalis Pedis 1 Scale (0,1,2,3,4,d) Circulatory - Left Pulses Dorsalis Pedis 1 Scale (0,1,2,3,4,d) Circulatory - Lower Extremities Color Lower Right Color Lower Left Normal Normal Neurological State Oriented to time-place- Lethargic Moves all extremities person Respiration - General Respiration Rate SpO2 (%) O2 (lpm) (B/min) 16 96 4 Chronological Log Time Study Chronological Log 17:46:27 Patient arrived via Bed. 17:46:28 Patient Name, D.O.B, / Armband Verified By R.N. 17:46:29 Consent signed by the physician and the patient and verified by the Manager Inside staff. 17:46:29 Pre-op and post- op instructions given; patient acknowledges understanding of instructions. 17:46:30 Verbal Stimulation=2 Physical Stimulation=2 Airway=2 Respiration=2 TOTAL=8. (0=absent, 1=li mited, 2=present) 17:46:31 Anesthesia at bedside. Assumes care of patient. 17:46:41 Patient has been NPO for More than 6Hrs. 17:46:42 Skin Breakdown- 17:46:43 Patient Warmer Placed on the Table. 06/24/2017 8:11:22 PM Financial #: [id number] 10 Patient Name: KEIKO CUELLAR Study #: [id number] Initial MD: Orquidea Celaya Date of : 1935 Study Date: 06/24/2017 17:46:46 Harley Prominences Protected 17:46:47 A # 20 IV was noted in the Forearm (right). Grade = 0 0.9ns kvo 17:46:48 A # 20 IV was noted in the Forearm (left). Grade = 0 0.9ns kvo 17:46:52 History and physical on the chart. Assessment: Initial Case, DW=460 BPM, Rhythm=af, ZXNG=626/83 mmhg, Chest Pain=0, Edema=None, Co prieto=Normal, Skin = Warm, Dry Right Pulses: Aleksandar Ped=1 17:53:02 Left Pulses: Aleksandar Ped=1 Lower Right Extremities: Color=Normal Lower Left Extremities: Color=Normal Neurological: State=Alert, Ox3, DOWNS 18:00:05 Anesthesia present for intubation. 14 Fr ferrari inserted w/o difficutly. Clear yellow urine obtained. 18:12:40 Bilateral groins prepped with 2% chlorhexidine, and draped after a 3 minute waiting time. 18:14:14 Table restraints applied according to hospital policy 18:18:58 MD paged 18:19:31 MD responded 18:35:18 MD arrived. Time Out. Correct patient, procedure, procedure equipment, site and side verified with physicia n present. Time 18:37:00 concurred by MD, individual staff and THREAD W[employer]ER [employer]. Time Out #2 - Consents verified, patient in correct position, all results are labled and displa yed, safety precautions 18:37:18 taken, antibiotics administered. Time out concurred by MD, individual staff and THREAD W[employer]ER [employer]OM[employer] in procedu re 18:37:32 Case Start 18:37:46 Rajat in progress 18:40:49 Rajat complete. 18:41:28 20 mL 1% XYLOCAINE given in lab by Orquidea Celaya in Left Groin via Subcutaneous. 18:41:55 Vascular access was obtained in the Fem Vein (left). 18:41:56 Vascular access was obtained in the Fem Vein (left). 18:42:01 Vascular access was obtained in the Fem Vein (left). 18:42:08 Vascular access was obtained in the Fem Art (left). A SHEATH, FR5.5 PRELUDE 11CM FR 5 was advanced into the Fem Art (left) using the Modified Seldi nger technique. 18:42:24 0.9ns pressure bag connected. 18:42:48 A SHEATH, EPS, FR6 FAST CATH FR 6 was advanced into the Fem Vein (left) using the Modified Seldinger technique. 18:43:01 A SHEATH, EPS, FR7 FAST CATH FR 7 was advanced into the Fem Vein (left) using the Modified Seldinger technique. 18:43:26 A SHEATH, FR10 EVANS 11CM FR 10 was advanced into the Fem Vein (left) using the Modified S eldinger technique. 18:46:36 20 mL 1% XYLOCAINE given in lab by Orquidea Celaya in Right Groin via Subcutaneous. 18:47:00 Vascular access was obtained in the Fem Vein (right). 18:47:43 A SHEATH, EPS, FR8 FAST CATH FR 8 was advanced into the Fem Vein (right) using the Modified Seldinger technique. 18:49:10 CATHETER, ACUNAV FR10 ICE (JOVAN) FR 10 Was Postioned. A CATHETER, JSN, QUAD BUNDLE FR 5 was advanced vis Fem Vein (left) and placed in the CS. Placem ent was visually 18:49:19 confirmed under fluoroscopy. A CATHETER, JSN, QUAD BUNDLE FR 5 was advanced vis Fem Vein (left) and placed in the HIS. Place ment was 18:49:39 visually confirmed under fluoroscopy. 06/24/2017 8:11:22 PM Financial #: [id number] Patient Name: KEIKO CUELLAR Study #: [id number] Initial MD: Orquidea Celaya Date of : 1935 Study Date: 06/24/2017 18:50:49 Baseline temp 35.6 11605 units HEPARIN given in lab by Anesthesia, THREAD W[employer] via Peripheral IV. Ordered by Jonathan Celaya Reason: As per 18:51:35 physicians verbal order. A SHEATH, FR8.5 STEERABLE SM 71CM BUNDLE 71CM was exchanged in the Fem Vein (right). This was n ecessary in 18:52:06 order for catheter support. 18:52:22 [place] in 18:54:15 In with wire. 18:56:10 A eps was advanced to the right atrium and passed through the septal wall to the left atriu m. 18:56:14 [place] out A CATHETER, FR7 OPTIMA SPIRAL BUNDLE FR7 was advanced vis Fem Vein (right) and placed in the LA . Placement 18:56:24 was visually confirmed under fluoroscopy. Mapping in progress. 18:57:00 Activated Clotting Time Drawn 19:05:08 Mapping complete. Catheter was removed A CATHETER, TACTICATH ABLAT 65 BUNDLE was advanced vis Fem Vein (right) and placed in the LA. P lacement was 19:05:21 visually confirmed under fluoroscopy. 19:07:23 ACT (Normal Range 90-180) = 335 2000 units HEPARIN given in lab by Anesthesia, THREAD W[employer]ER [employer] via Peripheral IV. Ordered by Orquidea Celaya Reason: As per 19:08:30 physicians verbal order. 1000 units/hr HEPARIN DRIP given in lab by Anesthesia, THREAD W[employer]ER [employer]OM[employer] via Peripheral IV. Pump/Drip Flow = 10 ml/hr using 19:10:00 [place] [address] units in 250 ml. Ordered by Hanscy. Yomi Reason: As per florian segura verbal order. 20 mcg/min ISUPREL given in lab by Anesthesia, THREAD WINDER [employer]OMAT[employer] via Peripheral IV. Pump/Drip Flow = 300 ml/ hr using NaCl .9 19:24:10 with a concentration of 1 mg in 250 ml. Ordered by Hanscy. Yomi Reason: As per physicians davidson bal order. 19:28:50 PACU called. Spoke to Roshni 19:29:00 Bedside Report will be given. 19:33:57 Isuprel off 19:34:08 Heparin off 40 mg PROTAMINE given in lab by Anesthesia, THREAD W[employer]ER AUTOMAT[employer] via Peripheral IV. Ordered by Orquidea Celaya. R chico: As per 19:36:36 physicians verbal order. 19:36:41 All catheter(s) removed without difficulty. 19:36:[address] Celaya. Hemostatic devices placed. Pressure applied to access sites. 19:38:06 VASCADE, FR6 CLOSURE SYSTEM FR 6\\7 placement in the Fem Vein (left) 19:39:02 VASCADE, FR6 CLOSURE SYSTEM FR 6\\7 placement in the Fem Vein (left) 19:39:30 VASCADE, FR6 CLOSURE SYSTEM FR 6\\7 placement in the Fem Vein (left) 19:39:30 VASCADE, FR5 CLOSURE SYSTEM FR 5 placement in the Fem Art (left) 19:41:00 VASCADE, FR6 CLOSURE SYSTEM FR 6\\7 placement in the Fem Vein (right) 19:41:09 Pressure held to sites by DB and HH. 20:07:16 Case End 20:09:32 Sterile dressings applied to sites. Sites wnl 20:09:44 No case complications noted. 20:09:50 Defibrillator and ground pads removed. Skin intact. 20:10:13 Ablation procedure performed: AFIB. 20:10:18 EP Procedure was performed. 06/24/2017 8:11:22 PM Financial #: [id number] Patient Name: KEIKO CUELLAR Study #: [id number] Initial MD: Orquidea Celaya Date of : 1935 Study Date: 06/24/2017 Assessment: Final Case, HR=72 BPM, Rhythm=sr, IWZX=017/70 mmhg, Edema=None, Color=Normal, Skin = Warm, Dry Right Pulses: Aleksandar Ped=1 Left Pulses: Aleksandar Ped=1 20:10:29 Lower Right Extremities: Color=Normal Lower Left Extremities: Color=Normal Neurological: State=Lethargic, Ox3, DOWNS Respiration: Resp=16 B/min, SpO2=96 %, O2=4 lpm 20:15:54 Patient moved to stretcher End Study - Contrast Media Used In Study Contrast Total Opened (mL) Total Used (mL) Total Wasted (mL) Unspecified 0 0 0 End Study - Maximum Contrast Load Max Contrast Load (mL) 346.9 End Study - Radiation Exposure Fluoro Time (minutes) 2.8 End Study - Sheaths Sheaths Pulled By Sheath Hold Time (min) Orquidea Celaya End Study - Patient Disposition Complications Transferred To Interventional Outcome No Telemetry Bed successful 06/24/2017 8:11:22 PM Financial #: [id number] 10 10
[2017-06-24] MEDS ORDERED: DO NOT ADM ANY ANTICOAGULANT DRUGS PRN (20:23)
[2017-06-24] MEDS: ATORVASTATIN 40 MG TAB PO SCH (21:14)
[2017-06-25] VITALS (13 sets, daily range): BP systolic 103–119; BP diastolic 54–58; PULSE 61–79; RESP 16–18; TEMP 97.9–98.6; O2SAT 96–98
[2017-06-25 07:02] LABS: INTERNATIONAL NORMALIZED RATIO 1.1 RATIO; PROTHROMBIN TIME - PATIENT 11.4 SEC (9.8-11.6)
[2017-06-25] MEDS: HYDROCHLOROTHIAZIDE 12.5 MG CAP PO SCH (08:47)
[2017-06-25] MEDS: PANTOPRAZOLE SOD 40 MG DELAYED RELEASE TAB PO SCH (08:47)
[2017-06-25] MEDS: DOCUSATE SODIUM 50 MG/SENNA 8.6 MG TAB PO SCH (08:47)
[2017-06-25] MEDS: SODIUM CHLORIDE 0.9% FLUSH 10 ML FLUSH IV FLUSH SCH (08:47)
[2017-06-25] MEDS ORDERED: DILTIAZEM-CD 180 MG CAP ER PO SCH (09:00)
--- NOTE | 2017-06-25 09:19 | PD.CARD ---
Atrial Fibrillation Ablation PROCEDURE DATE: June 24, 2017 PROCEDURES PERFORMED: 1. Electrophysiology study on Isuprel infusion 2. CS cannulation 3. 3-D mapping 4. Transseptal approach 5. Right and left heart catheterization 6. Intracardiac echo 7. Radiofrequency ablation of atrial fibrillation 8. Pulmonary vein isolation 9. Posterior wall ablation 10. Mitral valve isolation 11. Mitral line creation 12. Left atrial tachycardia ablation 13. Left atrial appendage isolation 14. Floor line creation 15. Anterior wall ablation INDICATIONS FOR THE PROCEDURE Ms. Kwan is a 82-year-old female with atrial fibrillation, symptomatic referred for electrophysiology study and ablation. The risks, the nature and the benefits of the procedure were clearly stated to her. The risks include pneumothorax, cardiac perforation, stroke, need for open heart surgery and even . The patient understood and agreed to proceed. DESCRIPTION OF THE PROCEDURE IN DETAIL As written informed consent was obtained prior to esophageal echocardiogram, the patient was kept on the table where she was prepped and draped in the usual sterile fashion. Conscious sedation was initiated and maintained throughout the procedure by the anesthesiologist. Once sedation was verified, the right and left inguinal areas were anesthetized with 2% Xylocaine. Using modified Seldinger technique, the left femoral vein was cannulated on three occasions, three guidewires were advanced. Over the wire a 6, 7 and a 10-Iraqi Hemaquet were advanced. Then the left femoral artery was cannulated on one occasion, one guidewire was advanced. Over the wire a 4-Iraqi Hemaquet was advanced. Then the right femoral vein was cannulated on one occasion, one guidewire was advanced. Over the wire a 8-Iraqi Hemaquet was advanced. Then under fluoroscopic guidance through the 6 and 7-Iraqi Hemaquet, two 5-Iraqi Sanchez curved quadripolar electrophysiology catheters were advanced and placed around the His as well as coronary sinus. Basic interval was measured. The patient was in atrial fibrillation. Through the 10-Iraqi Hemaquet, a [place] AcuNav intracardiac echo catheter was advanced and placed at the right atrium. Multiple view was obtained. There was no pericardial effusion, pulmonary vein was seen, atrial septal was visualized. Then the 8-Iraqi Hemaquet in the right femoral vein was exchanged for Agilis transseptal sheath that was placed all the way to the superior vena cava. Through the sheath a Chang needle was advanced, then the sheath, the dilator and the needle were progressed until foci engaged. Once engaged, the needle was advanced. RF was delivered for 2 seconds. I was able to cross into the left atrium. Once the needle crossed, the dilator was advanced. Once the dilator crossed, the sheath was advanced. Once the sheath crossed, the dilator and the needle were removed. At this point I did flood the system and fluid movement was seen in the left atrium the indicates the sheath is in good position. The patient already received 10,000 units of heparin. The goal is to keep an ACT around 350 during ablation. Then through the sheath a St. Yaw 20 pulse circumferential catheter was advanced. Using Mover endocardial solution mapping system, a two-dimensional configuration of the left atrium was obtained. Points were taken at the left superior and inferior veins, right superior and inferior veins, mitral valve, and appendages. Then through the sheath a St. Yaw TactiCath 65cm 3.5mm irrigated tipped mapping and radiofrequency ablation catheter was advanced. Esophageal probe was placed temperature monitoring during ablation. When it increased to 0.5 degrees Celsius above baseline, I moved to a different area of the atrium. First I did isolate the left superior and inferior vein. Posterior was ablated. Left atrial appendage was isolated. Patient went into left atrial tachycardia. Then a floor line was created. tachycardia was getting better organized. A mitral line was isolated, then the mitral valve was isolated. At that point the patient went into sinus rhythm. The anterior portion of the right superior and inferior veins were isolated. I did remap the atrium. At that point I did advance the circumferential catheter again into the vein. There was no signal into the vein, pacing from the vein showed no conduction to the atrium. Isuprel infusion was initiated at 10 mcg for 15 minutes. No tachyarrhythmia was induced, post Isuprel no tachyarrhythmia was induced. At that point the procedure was complete. All catheters were removed, atrial septal sheath was exchanged for 9-Iraqi Hemaquet , intracardiac echo showed no pericardial effusion. There is still good flow in the pulmonary vein. The patient is going to be transferred to the recovery room. No incident report. The patient tolerated the procedure. Blood loss was minimal. FINDINGS 1. Electrocardiogram: At baseline the patient was in atrial fibrillation, post procedure the patient was in sinus rhythm. 2. Basic interval: Base cycle length was around 510. Post ablation she was around 1020 milliseconds. 3. Tachyarrhythmia: Atrial fibrillation was mapped and ablated. Atrial tachycardia was ablated. The ablation was successful. CONCLUSION Successful electrophysiology study, mapping, radiofrequency ablation of atrial fibrillation, left atrial tachycardia, pulmonary vein isolation, posterior ablation, mitral valve isolation, mitral line creation, left atrial appendage isolation, floor line creation, left atrial tachycardia. COMMENTS AND RECOMMENDATIONS The patient is going to be transferred to the telemetry unit. Will be observed and when stable can be discharged home. Orquidea Celaya MD June 25, 2017 09:19
--- NOTE | 2017-06-25 09:21 | HHI.PR ---
Subjective Remarks Feeling better Objective Vital Signs Date Time Temp Pulse Resp B/P (MAP) Pulse Ox O2 Delivery O2 Flow Rate FiO2 06/25/17 06:00 61 06/25/17 05:00 66 06/25/17 04:00 97.9 79 16 103/58 (73) 96 06/25/17 04:00 79 06/25/17 03:00 64 06/25/17 02:00 64 06/25/17 01:00 76 06/25/17 00:00 66 06/24/17 23:00 60 06/24/17 23:00 97.5 62 16 94/55 (68) 97 06/24/17 22:00 56 06/24/17 22:00 97.1 57 16 103/60 (74) 96 06/24/17 21:30 97.5 54 20 107/57 (74) 98 Nasal Cannula 2 06/24/17 21:15 54 15 104/58 (73) 97 Nasal Cannula 2 06/24/17 21:00 54 15 111/55 (73) 99 Nasal Cannula 2 06/24/17 20:45 55 20 111/60 (77) 98 Nasal Cannula 3 06/24/17 20:30 57 19 104/58 (73) 98 Nasal Cannula 3 06/24/17 20:21 97.4 61 15 107/56 (73) 97 Nasal Cannula 3 06/24/17 17:00 140 06/24/17 16:00 70 06/24/17 15:30 98.6 71 20 130/72 (91) 98 06/24/17 15:00 71 06/24/17 14:00 66 06/24/17 13:00 50 06/24/17 12:00 40 06/24/17 11:30 98.1 47 18 100/55 (70) 97 06/24/17 11:00 44 06/24/17 10:00 48 I/O 06/24/17 06/24/17 06/24/17 06/25/17 06/25/17 06/25/17 07:00 15:00 23:00 07:00 15:00 23:00 Intake Total 240 ml 1400 ml 480 ml Output Total 1775 ml 2050 ml 1200 ml Balance -1535 ml -650 ml -720 ml Intake Oral 240 ml 300 ml 480 ml IV Total 300 ml Other 800 ml Output Urine Total 1775 ml 1600 ml 1200 ml Estimated Blood Loss 50 ml Other 400 ml # Bowel Movements 0 0 Result Diagram: 06/22/17 0610 06/22/17 0610 Imaging Alert, fully oriented Lungs: ventilated Heart: S1, S2 regular, no gallop Abdomen: soft, no mass Ext: no edema Current Medications Medications (Trade) Dose Ordered Sig/Moshe Route Start Time Stop Time Status Last Admin Sodium Chloride 1,000 ml @ 65 mls/hr [id number] IV 06/21/17 22:50 06/24/17 20:53 (NS Flush) 2 ml UNSCH PRN IV FLUSH 06/21/17 23:00 06/21/17 23:50 (NS Flush) 2 ml BID IV FLUSH 06/22/17 09:00 06/25/17 08:47 (Tylenol) 650 mg Q6H PRN PO 06/21/17 23:00 (Debora-Colace) 1 tab BID PO 06/22/17 09:00 06/23/17 09:30 (Milk Of Magnesia Liq) 30 ml Q12H PRN PO 06/21/17 23:00 (Senokot) 17.2 mg Q12H PRN PO 06/21/17 23:00 (Dulcolax Supp) 10 mg DAILY PRN RECTAL 06/21/17 23:00 (Lactulose Liq) 30 ml DAILY PRN PO 06/21/17 23:00 (Protonix) 40 mg DAILY PO 06/22/17 09:00 06/25/17 08:47 (Lipitor) 40 mg HS PO 06/22/17 21:00 06/24/17 21:14 (Microzide) 12.5 mg BID PO 06/22/17 11:00 06/25/17 08:47 (Percocet 5-325 Mg) 1 tab Q4H PRN PO 06/24/17 19:45 (Percocet 5-325 Mg) 2 tab Q4H PRN PO 06/24/17 19:45 (Ativan Inj) 0.5 mg UNSCH PRN IV PUSH 06/24/17 19:45 06/25/17 19:44 (Atropine Inj) 0.5 mg UNSCH PRN IV PUSH 06/24/17 19:45 Sodium Chloride 250 ml @ 500 mls/hr ONCE PRN IV 06/24/17 19:45 06/25/17 19:44 (Zofran Inj) 4 mg Q4H PRN IV PUSH 06/24/17 19:45 (Xylocaine 1% Inj (50 ml)) 10 ml UNSCH PRN INFIL 06/24/17 19:45 06/25/17 19:44 (Xarelto) 15 mg DAILY PO 06/25/17 18:00 (Cardizem Cd) 180 mg DAILY PO 06/25/17 09:00 06/25/17 08:47 ([facility] Nursing Information) ALL NURSING DEPARTME... UNSCH PRN .XX 06/24/17 20:23 06/25/17 20:22 Assessment and Plan Problem List: (1) Atrial fibrillation with RVR ICD Codes: I48.91 - Unspecified atrial fibrillation Status: Acute Plan: SP ablation. Doing well Feeling better In sinus rhythm Can be DH. Follow up with me in 3 weeks Orquidea Celaya MD June 25, 2017 09:21
--- NOTE | 2017-06-25 09:39 | EKG ---
Date Performed: 06/24/2017 Time Performed: 20:44:28 PTAGE: 82 years EKG: SINUS BRADYCARDIA NONSPECIFIC T-WAVE ABNORMALITY BORDERLINE ECG PREVIOUS TRACING : 06/22/2017 10.11 Intermittent artifact noted in the first four beats. Patien t is no longer in supraventricular tachycardia compared to the prior tracing. DOCTOR: Ryan Knox Interpretating Date/Time 06/25/2017 09:38:32
--- NOTE | 2017-06-25 09:41 | EKG ---
Date Performed: 06/25/2017 Time Performed: 06:16:52 PTAGE: 82 years EKG: Sinus rhythm with a short run of supraventricular tachycardia Low limb lead voltage Nonspecific ST-T wave changes PVC vs. aberrancy Borderline ECG PREVIOUS TRACING : 06/24/2017 20.44 Compared to the prior tracing, voltage has reduced in the l imb leads. The run of supraventricular tachycardia is new. DOCTOR: Ryan Knox Interpretating Date/Time 06/25/2017 09:39:49
[2017-06-25] MEDS ORDERED: HYDR12.57 PO (10:51)
[2017-06-25] MEDS ORDERED: CARD180C5 PO (10:51)
--- NOTE | 2017-06-25 10:54 | HHI.DS ---
Discharge Summary Admission Date Jun 22, 2017 at 11:35 Discharge Date: June 25, 2017 Admitting Diagnosis afib with rvr (1) Atrial fibrillation with RVR ICD Code: I48.91 - Unspecified atrial fibrillation Status: Acute Procedures Cardiac ablation Brief History - From Admission This is a 82-year-old female with known history of atrial fibrillation status post cardiac ablation 2, gastroesophageal reflux who presented to the hospital because of fast heart rate. Patient was in her normal state of health and undergoing outpatient workup with her meat processor Dr. Tyler. She does have an appointment with Dr. Celaya on Friday for evaluation to have cardiac ablation performed. Patient states that she was sitting down knitting last night and her heart rate was 48-52. She is getting ready for bed and her heart rate went up to 120. She states that this happens intermittently that is why she is undergoing outpatient follow-up for possible ablation and permanent pacemaker placement. Because her heart rate was elevated she came to the hospital with anticipation of being evaluated by meat processor and possibly moving forward with the cardiac ablation and permanent pacemaker during this hospitalization. Patient denied any lightheadedness, dizziness, blurred vision , chest pain, shortness of breath, she indicates that she has had increased lower extremity edema. Patient was started on Cardizem IV in the emergency department and recommended admission for further evaluation and management. CBC/BMP: 06/22/17 0610 06/22/17 0610 Significant Findings Laboratory Tests Test 06/22/17 13:50 06/25/17 05:50 Troponin I LESS THAN 0.02 NG/ML Imaging Last Impressions Chest X-Ray 06/21/172207 Signed Impressions: Service Date/Time: Wednesday, June 21, 2017 22:10 - CONCLUSION: No acute disease. Mehul Moreno MD PE at Discharge GENERAL: Elderly female laying in bed CARDIAC: Rate appears regular LUNGS: Clear to auscultation bilaterally. No wheeze ABDOMEN: Soft, nontender. Nondistended. EXTREMITIES: 1+ pretibial edema Pt update on day of discharge Patient feeling well. Denies any chest pain, palpitation, shortness of breath, nausea, vomiting Hospital Course Patient was admitted with atrial fibrillation with RVR. She was pursuing outpatient workup at this time with Dr. Celaya for possible cardiac ablation and permanent pacemaker placement. Patient was evaluated by Dr. Celaya in the hospital and she underwent cardiac ablation. P.o. Cardizem dose has been decreased to 180 mg daily. I have decreased her hydrochlorothiazide to 12.5 mg daily. Medications have been transmitted to her pharmacy per patient request. Dr. Celaya rounded on the patient today and has cleared her for discharge today with follow-up with him in 3 weeks. Continue Xarelto at home Patient was instructed to follow-up with her primary care physician within a week for BP monitoring Pt Condition on Discharge: Stable Discharge Disposition: Discharge Home Discharge Time: > 30 minutes Discharge Instructions DIET: Follow Instructions for: Heart Healthy Diet Activities you can perform: Regular-No Restrictions Follow up Referrals: Cardiology - 3 Weeks with Orquidea Celaya MD PCP Follow-up - 1 Week New Medications: Diltiazem CD 24 HR (Cardizem CD 24 HR) 180 Mg Caper 180 MG PO DAILY, #30 CAP Changed Medications: Hydrochlorothiazide (Hydrochlorothiazide) 12.5 Mg Cap 12.5 MG PO DAILY, #30 CAP 0 Refills (Changed from: BID; 60) Continued Medications: Denosumab Inj (Prolia Inj) 60 Mg/Ml Inj 60 MG SQ Q180D, VIAL 0 Refills Pantoprazole (Protonix) 40 Mg Tab 40 MG PO DAILY for Reflux, #30 TAB 0 Refills Rivaroxaban (Xarelto) 15 Mg Tab 15 MG PO DAILY for Blood Clot Prevention, TAB 0 Refills Simvastatin (Simvastatin) 80 Mg Tab 80 MG PO HS for Cholesterol Management, #30 TAB 0 Refills Discontinued Medications: Diltiazem CD 24 HR (Diltiazem CD 24 HR) 240 Mg Caper 240 MG PO DAILY for Blood Pressure Management, #30 CAP Antoinette Jacobson MD June 25, 2017 10:54
[2017-06-25] MEDS ORDERED: RIVAROXABAN 15 MG TAB PO SCH (18:00)
== END 2017-06-25 12:44 | disposition home or self-care (01) | DRG 274 ==
LOC: PHED 21:41 → PHEDA 22:49 → PHEDH 06-22 03:36 → OBSVTOIN 06-22 11:35 → HCIS 06-22 15:31
PROVIDERS: ADMIT Hospitalist; ATTEND Hospitalist
PROC: B244ZZZ Ultrasonography of Right Heart (ICD-10-PCS; 2017-06-24)
PROC: 4A023FZ Measurement of Cardiac Rhythm, Percutaneous Approach (ICD-10-PCS; 2017-06-24)
PROC: 4A0234Z Measurement of Cardiac Electrical Activity, Percutaneous Approach (ICD-10-PCS; 2017-06-24)
PROC: 02K83ZZ Map Conduction Mechanism, Percutaneous Approach (ICD-10-PCS; 2017-06-24)
PROC: 4A023N8 Measurement of Cardiac Sampling and Pressure, Bilateral, Percutaneous Approach (ICD-10-PCS; 2017-06-24)
PROC: 02583ZZ Destruction of Conduction Mechanism, Percutaneous Approach (ICD-10-PCS; principal; 2017-06-24 16:15)
DX: I48.0 Paroxysmal atrial fibrillation (principal); I10 Essential (primary) hypertension; K21.9 Gastro-esophageal reflux disease without esophagitis; E78.5 Hyperlipidemia, unspecified; I48.92 Unspecified atrial flutter; K44.9 Diaphragmatic hernia without obstruction or gangrene; R00.1 Bradycardia, unspecified; Z79.01 Long term (current) use of anticoagulants
CPT/HCPCS: 71045; 76937; 80048; 80053; 83690; 83735; 84484; 85002; 85025; 85610; 85730; 93005; 93312; 93320; 93325; 93613; 93623; 93656; 93662; 96374; C1730; C1731; C1732; C1759; C1760; C1766; C2630; G0269; J1100; J1160; J1644; J1956; J2370; J2405; J2710; J2720; J3010; J7030; J7040

== ENCOUNTER 2017-08-10 11:45 | Inpatient (IN) | payer OTHER, MEDICARE ==
[2017-08-10] VITALS (20 sets, daily range): BP systolic 81–128; BP diastolic 44–75; PULSE 62–136; RESP 12–35; TEMP 97.7–98.1; O2SAT 94–98
[~2017-08-10] VITALS: Ht 157.5 cm; Wt 54.5 kg
[~2017-08-10 11:45] MED LIST changes: +CARD180C5 PO; -DILT240C44 PO; +HYDR12.57 PO
[2017-08-10] MEDS ORDERED: POTA10CA PO (11:54)
[2017-08-10] MEDS ORDERED: DILT120T PO (11:54)
[2017-08-10] MEDS ORDERED: PRAV80TA2 PO (11:54)
[2017-08-10] MEDS ORDERED: SODIUM CHLORIDE 0.9% FLUSH 10 ML FLUSH IVF PRN (12:00)
[2017-08-10] MEDS ORDERED: DILTIAZEM HCL 25 MG/5 ML VIAL IV ONE (12:15)
--- NOTE | 2017-08-10 12:20 | PD ---
HPI Chief Complaint: Cardiac Complaint Time Seen by Provider: 11:59 Travel History International Travel<30 days: No Contact w/Intl Traveler<30days: No Traveled to known affect area: No History of Present Illness HPI 82-year-old female came to the emergency room with history of palpitations. Patient has history of A. fib and flutter. She has an ablation done 1 month ago. Patient just went to [place] to visit and returned. While she noticed the palpitations mostly when she turned to her left side while laying down. She says she has not had any other symptoms like chest pain, dizziness, lightheadedness or syncopal episode. Patient is on Xarelto every day. She called her computer programmer today since the symptoms persisted and the computer programmer wanted her to come to the emergency room to be evaluated and treated. Patient has a heart rate of 130 in triage. Rest of her hemodynamics are stable. She is awake and answering questions appropriately. Patient says she took 120 mg of Cardizem before coming to the emergency room today. [facility] Past Medical History Narrative Medical List of her past medical, surgical, social and family history is reviewed from the nursing note. Hx Anticoagulant Therapy: Yes (XERELTO) Arthritis: No Atrial Fibrillation: Yes Heart Rhythm Problems: Yes (AFIB WITH TWO PREVIOUS ABLATIONS) Cancer: No Cardiovascular Problems: Yes (A-Fib) High Cholesterol: Yes Chemotherapy: No Chest Pain: Yes Cerebrovascular Accident: No Diabetes: No Diminished Hearing: No Endocrine: No Gastrointestinal Disorders: Yes GERD: Yes Genitourinary: Yes (BLADDER SPASMS) Hiatal Hernia: Yes Hypertension: Yes Immune Disorder: No Musculoskeletal: Yes Neurologic: Yes Psychiatric: No Reproductive: No Respiratory: No Ulcer: Yes Menopausal: Yes : 6 Para: 6 Past Surgical History Abdominal Surgery: No Cardiac Surgery: Yes (CARDIAC ABLATION X2) Gynecologic Surgery: Yes (BARTHOLIN CYST REMOVAL, HYSTERECTOMY ) Hysterectomy: Yes Neurologic Surgery: No Thoracic Surgery: No Other Surgery: Yes (NASAL) Social History Alcohol Use: Yes (OCC) Tobacco Use: No (SMOKED LESS THAN A YEAR IN THE 1950'S) Substance Use: No Allergies-Medications (Allergen,Severity, Reaction): Coded Allergies: sulfamethoxazole (Unverified Allergy, Severe, Rash, 08/10/17) trimethoprim (Unverified Allergy, Severe, Rash, 6/17/18) Comments List of her allergies reviewed from the nursing note. Reported Meds & Prescriptions Reported Meds & Active Scripts Active Hydrochlorothiazide 12.5 Mg Cap 12.5 Mg PO DAILY Reported Potassium Chloride ER (Potassium Chloride) 10 Meq Cap 10 Meq PO DAILY Pravastatin 80 Mg Tab 80 Mg PO DAILY Diltiazem (Diltiazem HCl) 120 Mg Tab 120 Mg PO DAILY Prolia Inj (Denosumab) 60 Mg/Ml Inj 60 Mg SQ Q180D Protonix (Pantoprazole Sodium) 40 Mg Tab 40 Mg PO DAILY Xarelto (Rivaroxaban) 15 Mg Tab 15 Mg PO DAILY Narrative Medication List of her home medications reviewed from the nursing note Review of Systems Except as stated in HPI: all other systems reviewed are Neg Cardiovascular: Positive: Palpitations Physical Exam Narrative GENERAL: Awake, alert, elderly, anxious but no obvious to SKIN: Focused skin assessment warm/dry. HEAD: Atraumatic. Normocephalic. EYES: Pupils equal and round. No scleral icterus. No injection or drainage. ENT: No nasal bleeding or discharge. Mucous membranes pink and moist. NECK: Trachea midline. No JVD. CARDIOVASCULAR: Regular rate and rhythm. Tachycardia. No murmur appreciated. RESPIRATORY: No accessory muscle use. Clear to auscultation. Breath sounds equal bilaterally. GASTROINTESTINAL: Abdomen soft, non-tender, nondistended. Hepatic and splenic margins not palpable. MUSCULOSKELETAL: No obvious deformities. No clubbing. No cyanosis. No edema. NEUROLOGICAL: Awake and alert. No obvious cranial nerve deficits. Motor grossly within normal limits. Normal speech. PSYCHIATRIC: Appropriate mood and affect; insight and judgment normal. Data Data Last Documented VS Vital Signs Date Time Temp Pulse Resp B/P (MAP) Pulse Ox O2 Delivery O2 Flow Rate FiO2 08/10/17 14:39 120 18 99/70 (80) 98 Room Air 08/10/17 11:50 97.7 Orders Orders Electrocardiogram (08/10/17 12:00) Basic Metabolic Panel (Bmp) (08/10/17 12:00) B-Type Natriuretic Peptide (08/10/17 12:00) Ckmb (Isoenzyme) Profile (08/10/17 12:00) Complete Blood Count With Diff (08/10/17 12:00) Magnesium (Mg) (08/10/17 12:00) Prothrombin Time / Inr (Pt) (08/10/17 12:00) Act Partial Throm Time (Ptt) (08/10/17 12:00) Troponin I (08/10/17 12:00) Ecg Monitoring (08/10/17 12:00) Bilateral Bp Monitoring (08/10/17 12:00) Iv Access Insert/Monitor (08/10/17 12:00) Oximetry (08/10/17 12:00) Oxygen Administration (08/10/17 12:00) Sodium Chloride 0.9% Flush (Ns Flush) (08/10/17 12:00) Chest, Pa & Lat (08/10/17 12:00) Diltiazem Inj (Cardizem Inj) (08/10/17 12:15) Metoprolol Tartrate Inj (Lopressor Inj) (08/10/17 12:30) Diltiazem (Cardizem) (08/10/17 13:00) Sodium Chlorid 0.9% 500 Ml Inj (Ns 500 M (08/10/17 14:30) Admit Order (Ed Use Only) (08/10/17 14:41) Labs Laboratory Tests Test 08/10/17 12:08 White Blood Count 6.2 TH/MM3 Red Blood Count 4.77 MIL/MM3 Hemoglobin 15.3 GM/DL Hematocrit 45.2 % Mean Corpuscular Volume 94.8 FL Mean Corpuscular Hemoglobin 32.0 PG Mean Corpuscular Hemoglobin Concent 33.7 % Red Cell Distribution Width 12.6 % Platelet Count 282 TH/MM3 Mean Platelet Volume 8.2 FL CBC Comment AUTO DIFF Differential Total Cells Counted 100 Neutrophils % (Manual) 50 % Lymphocytes % 42 % Monocytes % 6 % Eosinophils % 2 % Neutrophils # (Manual) 3.1 TH/MM3 Differential Comment AUTO DIFF CONFIRMED Platelet Estimate NORMAL Platelet Morphology Comment NORMAL Prothrombin Time 13.8 SEC Prothromb Time International Ratio 1.4 RATIO Activated Partial Thromboplast Time 33.7 SEC Blood Urea Nitrogen 21 MG/DL Creatinine 1.00 MG/DL Random Glucose 111 MG/DL Calcium Level 9.2 MG/DL Magnesium Level 1.9 MG/DL Sodium Level 138 MEQ/L Potassium Level 3.9 MEQ/L Chloride Level 105 MEQ/L Carbon Dioxide Level 24.6 MEQ/L Anion Gap 8 MEQ/L Estimat Glomerular Filtration Rate 53 ML/MIN Total Creatine Kinase 37 U/L Troponin I LESS THAN 0.02 NG/ML B-Type Natriuretic Peptide 97 PG/ML MDM Medical Decision Making Medical Screen Exam Complete: Yes Emergency Medical Condition: Yes Medical Record Reviewed: Yes Interpretation(s) Twelve-lead EKG was reviewed by me. Atrial flutter with possible 2-1 block. Heart rate of 133 bpm. Differential Diagnosis Atrial flutter, electrolyte abnormality, Narrative Course 12:27 PM there is a shortage of Cardizem. This was initially ordered and then canceled because of the shortage. I have ordered IV Lopressor 5 mg. 2:30 PM patient's heart rate is fluctuating between 100s-120s. This is after 90 mg of p.o. Cardizem in addition to the Lopressor. Blood pressure is currently 89/69. I have given her 500 cc IV fluid bolus order. At this point I do not have any room to give her any more rate limiting agent given her blood pressure. I have discussed this with her and would like to get her admitted. She would require further p.o. medication to control the rate in the absence of a Cardizem drip. Awaiting for the hospitalist callback. Procedures EKG Prior to Arrival: No Diagnosis Primary Impression: Atrial fibrillation with RVR Admitting Information Admitting Physician Requests: Observation Elliott Villa MD Aug 10, 2017 12:20
[2017-08-10] MEDS ORDERED: METOPROLOL TARTRATE 5 MG/5 ML VIAL IV PUSH ONE (12:30)
[2017-08-10 12:40] LABS: HEMATOCRIT 45.2 % (35.0-46.0); HEMOGLOBIN 15.3 GM/DL (11.6-15.3); MEAN CELL VOLUME 94.8 FL (80.0-100.0); MEAN CORPUSCULAR HGB CONC 33.7 % (32.0-36.0); MEAN PLATELET VOLUME 8.2 FL (7.0-11.0); PLATELET COUNT 282 TH/MM3 (150-450); RED BLOOD COUNT 4.77 MIL/MM3 (4.00-5.30); RED CELL DISTRIBUTION WIDTH 12.6 % (11.6-17.2); WHITE BLOOD COUNT 6.2 TH/MM3 (4.0-11.0)
[2017-08-10 12:51] LABS: CHLORIDE 105 MEQ/L (98-107); SODIUM (NA) 138 MEQ/L (136-145)
[2017-08-10 12:54] LABS: CALCIUM 9.2 MG/DL (8.5-10.1)
[2017-08-10 12:55] LABS: BICARBONATE 24.6 MEQ/L (21.0-32.0); BLOOD UREA NITROGEN 21 MG/DL (7-18); GLUCOSE,RANDOM 111 MG/DL (74-106); INTERNATIONAL NORMALIZED RATIO 1.4 RATIO; MAGNESIUM 1.9 MG/DL (1.5-2.5); PROTHROMBIN TIME - PATIENT 13.8 SEC (9.8-11.6)
[2017-08-10 12:58] LABS: GLOMERULAR FILTRATION RATE 53 ML/MIN (>89)
[2017-08-10] MEDS ORDERED: DILTIAZEM HCL 90 MG TAB PO ONE (13:00)
[2017-08-10 13:03] LABS: TROPONIN I LESS THAN 0.02 NG/ML (0.02-0.05)
--- NOTE | 2017-08-10 13:03 | RADRPT ---
EXAM DATE: 08/10/2017 1:00 PM EDT AGE/SEX: 82 years / Female INDICATIONS: Rapid heart rate CLINICAL DATA: This is the patient's initial encounter. Patient reports that signs and symptoms have been present for 4 - 6 days and indicates a pain score of 0/10. MEDICAL/SURGICAL HISTORY: . A Fib None. COMPARISON: [facility], CHEST SINGLE AP, 06/21/2017. [facility], CHEST PA & LAT, 07/03/2014. . FINDINGS: Frontal and lateral views of the chest demonstrate a normal-sized cardiac silhouette. There is a stab le linear opacity in the left upper lobe. No pleural effusion, airspace consolidation, or pneumothora x is identified. The bones and soft tissues demonstrate no acute finding. There are degenerative retana ges of the thoracic spine. The dense calcification overlying the apex left hemithorax medially is sta ble and could be within the lung or could represent a calcified vascular structure. CONCLUSION: Stable scar in the left upper lobe. Otherwise, no acute cardiopulmonary abnormality is identified. Electronically signed by: Chris Sherman MD 08/10/2017 1:02 PM EDT
[2017-08-10 13:28] LABS: LYMPHOCYTES 42 % (9-44); MONOCYTES 6 % (0-8); NEUTROPHIL # MANUAL DIFF 3.1 TH/MM3 (1.8-7.7); POLYS (SEG NEUTROPHILS) 50 % (16-70)
[2017-08-10] MEDS ORDERED: SODIUM CHLORID 0.9% 500 ML INJ 500 ML IV ONE (14:30)
[2017-08-10] MEDS ORDERED: SODIUM CHLORIDE 0.9% FLUSH 10 ML FLUSH IV FLUSH PRN (14:45)
[2017-08-10] MEDS: SODIUM CHLOR 0.9% 1000 ML INJ 1,000 ML IV SCH (15:37)
--- NOTE | 2017-08-10 18:16 | HHI.HP ---
[facility] Primary Care Physician Jaime Noonan MD Admission Diagnosis A. fib with RVR Diagnoses: Chief Complaint: Patient with palpitations Travel History International Travel<30 Days: No Contact w/Intl Traveler <30 Da: No Traveled to Known Affected Are: No History of Present Illness This patient is a 82-year-old female with a history of atrial for ablation who notes that for the last 3 days she has had palpitations. She took her heart rate at home noted that was consistently in the 120s 130s. She finally came to the hospital and it did not subside. In June she had an ablation. This was her second ablation. She had been taking Cardizem 180 mg and this was decreased to 120 mg. She says her heart rate normally is in the 50s. Recently she went on a trip and just returned to find her heart rate becoming out of control. She denies any chest pain or dizziness or lightheadedness. She takes Xarelto and has not had any trouble with follow-up. She has been admitted to the hospital due to atrial fibrillation with rapid ventricular response. Currently heart rates in the 80s after Lopressor. Her blood pressure had dropped a bit also. She will require further observation for treatment Review of Systems Constitutional: DENIES: Diaphoretic episodes, Fatigue, Fever, Weight gain, Weight loss, Chills, Dizziness, Change in appetite, Night Sweats Endocrine: DENIES: Abnorml menstrual pattern, Heat/cold intolerance, Polydipsia , Polyuria, Polyphagia Eyes: DENIES: Blurred vision, Diplopia, Eye inflammation, Eye pain, Vision loss , Photosensitivity, Double Vision Ears, nose, mouth, throat: DENIES: Tinnitus, Hearing loss, Vertigo, Nasal discharge, Oral lesions, Throat pain, Hoarseness, Ear Pain, Running Nose, Epistaxis, Sinus Pain, Toothache, Odynophagia Respiratory: DENIES: Apneas, Cough, Snoring, Wheezing, Hemoptysis, Sputum production, Shortness of breath Cardiovascular: COMPLAINS OF: Palpitations, DENIES: Chest pain, Syncope, Dyspnea on Exertion, PND, Lower Extremity Edema, Orthopnea, Claudication Gastrointestinal: DENIES: Abdominal pain, Black stools, Bloody stools, Constipation, Diarrhea, Nausea, Vomiting, Difficulty Swallowing, Anorexia Genitourinary: DENIES: Abnormal vaginal bleeding, Dysmenorrhea, Dyspareunia, Sexual dysfunction, Urinary frequency, Urinary incontinence, Urgency, Hematuria , Dysuria, Nocturia, Vaginal discharge Musculoskeletal: DENIES: Joint pain, Muscle aches, Stiffness, Joint Swelling, Back pain, Neck pain Integumentary: DENIES: Abnormal pigmentation, Pruritus, Rash, Nail changes, Breast masses, Breast skin changes, Nipple discharge Hematologic/lymphatic: DENIES: Bruising, Lymphadenopathy Psychiatric: DENIES: Anxiety, Confusion, Mood changes, Depression, Hallucinations, Agitation, Suicidal Ideation, Homicidal Ideation, Delusions Except as stated in HPI: all other systems reviewed are Neg Past Family Social History Past Medical History Atrial fibrillation Hypertension GERD Hyperlipidemia Past Surgical History Cardiac ablation Hysterectomy Reported Medications Reviewed in the EMR, recently decreased the Cardizem and may after ablation Allergies: Coded Allergies: sulfamethoxazole (Unverified Allergy, Severe, Rash, 08/10/17) trimethoprim (Unverified Allergy, Severe, Rash, 08/10/17) Active Ordered Medications Reviewed in the EMR Family History Daughter has colon cancer Father had throat cancer in 70s, mother had a brain tumor in his 70s Social History No current tobacco alcohol dependency, is a Recently returned from out of [place] Physical Exam Vital Signs Vital Signs Date Time Temp Pulse Resp B/P (MAP) Pulse Ox O2 Delivery O2 Flow Rate FiO2 08/10/17 17:52 83 16 90/56 (67) 98 08/10/17 17:07 97.7 124 12 84/60 (68) 98 08/10/17 16:57 08/10/17 16:19 125 16 98/65 (76) 98 Room Air 08/10/17 15:45 125 16 105/70 (82) 98 Room Air 08/10/17 14:39 120 18 99/70 (80) 98 Room Air 08/10/17 13:15 100 16 95/67 (76) 95 Room Air 08/10/17 12:24 127 18 105/71 (82) 96 Room Air 105/72 (83) 08/10/17 12:22 93 Room Air 08/10/17 12:22 94 Room Air 08/10/17 11:50 97.7 136 20 128/68 (94) 98 Physical Exam GENERAL: This is a well-nourished, well-developed patient, in no apparent distress. SKIN: No rashes, ecchymoses or lesions. Cool and dry. HEAD: Atraumatic. Normocephalic. No temporal or scalp tenderness. EYES: Pupils equal round and reactive. Extraocular motions intact. No scleral icterus. No injection or drainage. ENT: Nose without bleeding, purulent drainage or septal hematoma. Throat without erythema, tonsillar hypertrophy or exudate. Uvula midline. Airway patent. NECK: Trachea midline. No JVD or lymphadenopathy. Supple, nontender, no meningeal signs. CARDIOVASCULAR: afib controlled rate without murmurs, gallops, or rubs. RESPIRATORY: Clear to auscultation. Breath sounds equal bilaterally. No wheezes , rales, or rhonchi. GASTROINTESTINAL: Abdomen soft, non-tender, nondistended. No hepato-splenomegaly , or palpable masses. No guarding. MUSCULOSKELETAL: Extremities without clubbing, cyanosis, or edema. No joint tenderness, effusion, or edema noted. No calf tenderness. Negative Homans sign bilaterally. NEUROLOGICAL: Awake and alert. Cranial nerves II through XII intact. Motor and sensory grossly within normal limits. Five out of 5 muscle strength in all muscle groups. Normal speech. Laboratory Laboratory Tests Test 08/10/17 12:08 White Blood Count 6.2 Red Blood Count 4.77 Hemoglobin 15.3 Hematocrit 45.2 Mean Corpuscular Volume 94.8 Mean Corpuscular Hemoglobin 32.0 Mean Corpuscular Hemoglobin Concent 33.7 Red Cell Distribution Width 12.6 Platelet Count 282 Mean Platelet Volume 8.2 CBC Comment AUTO DIFF Differential Total Cells Counted 100 Neutrophils % (Manual) 50 Lymphocytes % 42 Monocytes % 6 Eosinophils % 2 Neutrophils # (Manual) 3.1 Differential Comment AUTO DIFF CONFIRMED Platelet Estimate NORMAL Platelet Morphology Comment NORMAL Prothrombin Time 13.8 Prothromb Time International Ratio 1.4 Activated Partial Thromboplast Time 33.7 Blood Urea Nitrogen 21 Creatinine 1.00 Random Glucose 111 Calcium Level 9.2 Magnesium Level 1.9 Sodium Level 138 Potassium Level 3.9 Chloride Level 105 Carbon Dioxide Level 24.6 Anion Gap 8 Estimat Glomerular Filtration Rate 53 Total Creatine Kinase 37 Troponin I LESS THAN 0.02 B-Type Natriuretic Peptide 97 Thyroid Stimulating Hormone 3rd Gen 0.434 Result Diagram: 08/10/17 1208 08/10/17 1208 Imaging Last Impressions Chest X-Ray 08/10/17 1200 Signed Impressions: CONCLUSION: Stable scar in the left upper lobe. Otherwise, no acute cardiopulmonary abnorma lity is identified. Caprini VTE Risk Assessment Caprini VTE Risk Assessment: Mod/High Risk (score >= 2) VTE Pharm Contraindication: Coagulopathy,INR elevated Caprini Risk Assessment Model Point Value = 1 Point Value = 2 Point Value = 3 Point Value = 5 Age 41-60 Minor surgery BMI > 25 kg/m2 Swollen legs Varicose veins or History of unexplained or recurrent spontaneous Oral contraceptives or hormone replacement Sepsis (< 1 month) Serious lung disease, including pneumonia (< 1 month) Abnormal pulmonary function Acute myocardial infarction Congestive heart failure (< 1 month) History of inflammatory bowel disease Medical patient at bed rest Age 61-74 Arthroscopic surgery Major open surgery (> 45 min) Laparoscopic surgery (> 45 min) Malignancy Confined to bed (> 72 hours) Immobilizing plaster cast Central venous access Age >= 75 History of VTE Family history of VTE Factor V Leiden Prothrombin [id number] Lupus anticoagulant Anticardiolipin antibodies Elevated serum homocysteine Heparin-induced thrombocytopenia Other congenital or acquired thrombophilia Stroke (< 1 month) Elective arthroplasty Hip, pelvis, or leg fracture Acute spinal cord injury (< 1 month) Prophylaxis Regimen Total Risk Factor Score Risk Level Prophylaxis Regimen 0-1 Low Early ambulation 2 Moderate Order ONE of the following: *Sequential Compression Device (SCD) *Heparin 5000 units SQ BID 3-4 Higher Order ONE of the following medications: *Heparin 5000 units SQ TID *Enoxaparin/Lovenox 40 mg SQ daily (WT < 150 kg, CrCl > 30 mL/min) *Enoxaparin/Lovenox 30 mg SQ daily (WT < 150 kg, CrCl > 10-29 mL/min) *Enoxaparin/Lovenox 30 mg SQ BID (WT < 150 kg, CrCl > 30 mL/min) AND/OR *Sequential Compression Device (SCD) 5 or more Highest Order ONE of the following medications: *Heparin 5000 units SQ TID (Preferred with Epidurals) *Enoxaparin/Lovenox 40 mg SQ daily (WT < 150 kg, CrCl > 30 mL/min) *Enoxaparin/Lovenox 30 mg SQ daily (WT < 150 kg, CrCl > 10-29 mL/min) *Enoxaparin/Lovenox 30 mg SQ BID (WT < 150 kg, CrCl > 30 mL/min) AND *Sequential Compression Device (SCD) Assessment and Plan Problem List: (1) Atrial fibrillation with RVR ICD Code: I48.91 - Unspecified atrial fibrillation Status: Acute Plan: Currently controlled after Lopressor Resume home Cardizem follow clinically Follow-up electrolytes Cardiac consultation pending Continue Xarelto (2) Hypotension ICD Code: I95.9 - Hypotension, unspecified Plan: Probably worse secondary to medications Patient does not have hypertension We will continue with caution and adjusting medications Code Status Full code Discussed Condition 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
[2017-08-10] MEDS: DILTIAZEM HCL 60 MG TAB PO SCH ×2 (18:48→21:00)
[2017-08-10] MEDS: SODIUM CHLORIDE 0.9% FLUSH 10 ML FLUSH IV FLUSH SCH (21:00)
[2017-08-11] VITALS (16 sets, daily range): BP systolic 81–115; BP diastolic 48–65; PULSE 61–84; RESP 13–34; TEMP 98–98.8; O2SAT 93–97
[2017-08-11] MEDS ORDERED: SODIUM CHLORID 0.9% 500 ML INJ 500 ML IV ONE
[2017-08-11] MEDS: SODIUM CHLOR 0.9% 1000 ML INJ 1,000 ML IV SCH ×2 (06:08→08:58)
[2017-08-11 06:50] LABS: BICARBONATE 26.7 MEQ/L (21.0-32.0); CALCIUM 8.1 MG/DL (8.5-10.1); CREATININE 0.83 MG/DL (0.50-1.00); MAGNESIUM 1.9 MG/DL (1.5-2.5)
--- NOTE | 2017-08-11 07:57 | MB ---
cc: Juan Pablo Lee MD DATE: 08/11/2017 REASON FOR CONSULTATION: Atrial fibrillation/flutter with RVR. HISTORY OF PRESENT ILLNESS: The patient is a very pleasant 82-year-old woman who sees my partner, Dr. Tyler who has had hospitalization for A. fibrillation/flutter most recently this past May, who presents again with palpitations. She was in the emergency department and found to have a rapid heart rate. She was brought to the ICU and given fluids and her heart rate has come down. Her blood pressure is somewhat on the low side in the high 90 systolic. She is completely asymptomatic denying any chest pain, palpitation, shortness of breath, lightheadedness, dizziness or syncope. PAST MEDICAL HISTORY: Hypertension, atrial fibrillation, GERD, hyperlipidemia. CURRENT MEDICATIONS: 1. Hydrochlorothiazide 12.5 mg daily. 2. Protonix 40 mg daily. 3. Pravachol 80 mg daily. 4. Xarelto 15 mg daily. 5. Cardizem 60 mg p.o. q.i.d. ALLERGIES: TRIMETHOPRIM AND SULFA. PHYSICAL EXAMINATION: VITAL SIGNS: Afebrile, pulse 61, respiratory rate 16, BP 97/61, saturating 93 on room air. GENERAL: A pleasant, well-appearing woman, in no distress. NECK: No JVD. LUNGS: Clear to auscultation bilaterally. CARDIOVASCULAR: Irregularly irregular rhythm, with a regular rate. No murmurs appreciated. ABDOMEN: Benign. EXTREMITIES: No edema. LABORATORY DATA: White count 6.2, hematocrit 45.2, platelets 282. Sodium 144, potassium 3.8, chloride 111, bicarbonate 26.7, BUN 17, creatinine 0.83, glucose 94. Cardiac enzymes are negative x2. EKG shows atrial flutter at 133. Current telemetry shows atrial flutter at a rate of about 60. Nuclear stress test from May of this year was read as low risk with minimal borderline reversibility. IMPRESSION: 1. Atrial flutter. The patient's atrial flutter is now rate controlled. Her short-acting Cardizem will be changed to long-acting. Her blood pressures are slightly low, but she is asymptomatic. She can continue some IV hydration, but hopefully after she eats breakfast and walks around this morning, her blood pressures will have normalized and if she feels well, is asymptomatic and rate controlled, she can be discharged home later today to followup with Dr. Tyler. I will sign off and be available as needed. Please call if there are any difficulties. Thank you again for the opportunity to participate in this patient's care. MD ROMEO Giles/ANGEL , 07:41 AM , 07:56 AM
[2017-08-11] MEDS ORDERED: NON-FORMULARY DRUG (Diltiazem 120 MG) PO SCH (09:00)
[2017-08-11] MEDS ORDERED: DILTIAZEM-CD 240 MG CAP ER PO SCH (09:00)
[2017-08-11] MEDS ORDERED: PRAVASTATIN SOD 80 MG TAB PO SCH (09:00)
[2017-08-11] MEDS ORDERED: HYDROCHLOROTHIAZIDE 12.5 MG CAP PO SCH (09:00)
[2017-08-11] MEDS ORDERED: POTASSIUM CHLORIDE 10 MEQ CONTROLLED RELEASE TAB PO SCH (09:00)
[2017-08-11] MEDS ORDERED: PANTOPRAZOLE SOD 40 MG DELAYED RELEASE TAB PO SCH (09:00)
[2017-08-11] MEDS ORDERED: RIVAROXABAN 15 MG TAB PO SCH (09:00)
[2017-08-11] MEDS: SODIUM CHLORIDE 0.9% FLUSH 10 ML FLUSH IV FLUSH SCH (09:00)
--- NOTE | 2017-08-11 10:51 | HHI.PR ---
Subjective Remarks Patient seen and via today follow-up for atrial fibrillation with hypotension. Heart rate is improved Objective Vitals Vital Signs Date Time Temp Pulse Resp B/P (MAP) Pulse Ox O2 Delivery O2 Flow Rate FiO2 08/11/17 10:05 70 34 115/65 (82) 97 08/11/17 09:02 64 26 81/65 (70) 96 08/11/17 08:02 98.2 84 13 87/57 (67) 08/11/17 07:02 62 13 95/55 (68) 08/11/17 06:00 62 16 97/61 (73) 08/11/17 06:00 61 08/11/17 05:02 62 14 92/49 (63) 08/11/17 04:02 98.0 62 15 86/50 (62) 93 08/11/17 04:00 62 08/11/17 03:05 62 18 101/54 (70) 08/11/17 02:07 62 15 93/50 (64) 08/11/17 02:00 61 08/11/17 01:02 62 16 95/48 (64) 08/11/17 00:00 98.8 62 19 93/53 (66) 94 08/11/17 00:00 62 08/10/17 23:02 82 17 83/50 (61) 08/10/17 22:10 76 19 104/53 (70) 08/10/17 22:09 82 20 83/45 (58) 08/10/17 22:00 70 08/10/17 21:02 72 24 85/44 (58) 94 08/10/17 20:31 62 25 84/49 (61) 08/10/17 20:26 62 21 87/59 (68) 08/10/17 20:02 98.1 62 15 81/53 (62) 08/10/17 20:00 62 08/10/17 19:02 68 24 95/59 (71) 08/10/17 18:00 100 29 98/75 (83) 97 08/10/17 18:00 86 08/10/17 17:52 83 16 90/56 (67) 98 08/10/17 17:07 97.7 124 12 84/60 (68) 98 08/10/17 16:57 08/10/17 16:19 125 16 98/65 (76) 98 Room Air 08/10/17 15:45 125 16 105/70 (82) 98 Room Air 08/10/17 14:39 120 18 99/70 (80) 98 Room Air 08/10/17 13:15 100 16 95/67 (76) 95 Room Air 08/10/17 12:24 127 18 105/71 (82) 96 Room Air 105/72 (83) 08/10/17 12:22 93 Room Air 08/10/17 12:22 94 Room Air 08/10/17 11:50 97.7 136 20 128/68 (88) 98 I/O 08/10/17 08/10/17 08/10/17 08/11/17 08/11/17 08/11/17 07:00 15:00 23:00 07:00 15:00 23:00 Intake Total 980 ml 1820 ml Output Total 975 ml Balance 980 ml 845 ml Intake Oral 480 ml 320 ml IV Total 500 ml 1500 ml Output Urine Total 975 ml # Voids 1 4 # Bowel Movements 0 Result Diagram: 08/10/17 1208 08/11/17 0625 Imaging Last Impressions Chest X-Ray 08/10/17 1200 Signed Impressions: CONCLUSION: Stable scar in the left upper lobe. Otherwise, no acute cardiopulmonary abnorma lity is identified. Objective Remarks GENERAL: This is a well-nourished, well-developed patient, in no apparent distress. CARDIOVASCULAR: A. fib bradycardia without murmurs, gallops, or rubs. RESPIRATORY: Clear to auscultation. Breath sounds equal bilaterally. No wheezes , rales, or rhonchi. GASTROINTESTINAL: Abdomen soft, non-tender, nondistended. Normal active bowel sounds MUSCULOSKELETAL: Extremities without clubbing, cyanosis, or edema. NEURO: Alert & Oriented x4 to person, place, time, situation. Moves all ext x4 A/P Problem List: (1) Atrial fibrillation with RVR ICD Code: I48.91 - Unspecified atrial fibrillation Status: Acute Plan: Continue Xarelto Continue Cardizem with increased dose per cardiology. (2) Hypotension ICD Code: I95.9 - Hypotension, unspecified Plan: Currently asymptomatic DC hydrochlorothiazide Discharge Planning Discharge home Activity unrestricted Diet regular Prescriptions on chart Kristina Corona MD Aug 11, 2017 10:51
[2017-08-11] MEDS ORDERED: DILT240C44 PO (10:52)
--- NOTE | 2017-08-11 10:52 | HHI.DCPOC ---
Discharge Care Plan Diagnosis: (1) Hypotension (2) Atrial fibrillation with RVR Goals to Promote Your Health * To prevent worsening of your condition and complications * To maintain your health at the optimal level Directions to Meet Your Goals Take your medications as prescribed Follow your dietary instruction Follow activity as directed Keep your appointments as scheduled Take your immunizations and boosters as scheduled If your symptoms worsen call your PCP, if no PCP go to Urgent Care Center or Emergency Room Smoking is Dangerous to Your Health. Avoid second hand smoke Call the 24-hour hour crisis hotline for domestic abuse at Kristina Corona MD Aug 11, 2017 10:52
--- NOTE | 2017-08-11 23:16 | EKG ---
Date Performed: 08/10/2017 Time Performed: 11:49:30 PTAGE: 82 years EKG: ATRIAL FLUTTER/TACHYCARDIA WITH RAPID VENTRICULAR RESPONSE MODERATE ST DEPRESSION ABNORMAL ECG PREVIOUS TRACING : 06/25/2017 06.16 DOCTOR: Orquidea Celaya Interpretating Date/Time 08/11/2017 23:03:48
== END 2017-08-11 12:30 | disposition home or self-care (01) | DRG 310 ==
LOC: PHED 11:45 → PHEDA 14:43 → OBSVTOIN 14:50 → PHICU 16:52
PROVIDERS: ADMIT Hospitalist; ATTEND Hospitalist
DX: I48.92 Unspecified atrial flutter (principal); I95.9 Hypotension, unspecified; I48.91 Unspecified atrial fibrillation; E78.5 Hyperlipidemia, unspecified; K21.9 Gastro-esophageal reflux disease without esophagitis; Z79.01 Long term (current) use of anticoagulants; Z90.710 Acquired absence of both cervix and uterus; Z88.2 Allergy status to sulfonamides; Z88.1 Allergy status to other antibiotic agents
CPT/HCPCS: 71046; 80048; 82550; 83735; 83880; 84443; 84484; 85025; 85610; 85730; 87641; 93005; J7030; J7040